=== PATIENT | female | born 1960 | race Caucasian/White ===

== ENCOUNTER 2023-03-09 13:25 | Outpatient (OUT) | payer BC, SELFPAY ==
--- NOTE | 2023-03-09 13:32 | XR_ITS ---
[address] [address] Patient Name: OANH TIM MRN: [id number] date: 1960 Sex: F Assigned Patient Location: [facility] Current Patient Location: [facility] Accession/Order Number: [id number] Exam Date: 03/09/2023 13:39 Report Date: 03/09/2023 13:59 At the request of: SHAIKH DORI Procedure: XR shoulder RT min 2V EXAM: XR shoulder RT min 2V HISTORY: Right Shoulder Pain M25.511 COMPARISON: None. TECHNIQUE: 3 views FINDINGS: There is no acute fracture or dislocation. There are mild degenerative changes of the acromioclavicular joint. The soft tissues are unremarkable. IMPRESSION: Degenerative changes as above. Electronically authenticated by: YOSHI REYNAGA Date: 03/09/2023 13:59
== END 2023-03-09 13:26 ==
LOC: RAD 13:26
PROVIDERS: PCP Internal Medicine; Visit Provider Internal Medicine
DX: M25.511 Pain in right shoulder (principal)
CPT/HCPCS: 73030

== ENCOUNTER 2023-12-04 12:31 | Outpatient (OUT) | payer BC, SELFPAY ==
[2023-12-04 12:48] LABS: Basophils Absolute Auto 0.1 10^3/uL (0.0-0.1); Basophils Percent Auto 1.6 % (0.2-2.0); Eosinophils Absolute Auto 0.3 10^3/uL (0.0-0.7); Eosinophils Percent Auto 4.1 % (0.9-7.0); Hematocrit 38.7 % (36.0-48.0); Hemoglobin 12.4 g/dL (12.0-16.0); Immature Granulocytes Abs Auto 0.01 10^3/uL (0.00-0.03); Immature Granulocytes Pct Auto 0.1 % (0.0-0.5); Lymphocytes Absolute Auto 2.8 10^3/uL (1.2-3.8); Mean Corpuscular Hemoglobin 31.9 pg (26.7-34.0); Mean Corpuscular Volume 99.5 fL (81.0-99.0); Mean Platelet Volume 9.6 fL (9.5-13.5); Monocytes Absolute Auto 0.8 10^3/uL (0.3-0.8); Monocytes Percent Auto 11.2 % (1.7-12.0); Neutrophils Absolute Auto 3.1 10^3/uL (1.4-6.5); Platelet Count 309 10^3/uL (150-450); Red Blood Count 3.89 10^6/uL (4.20-5.40); Red Cell Distribution Width 12.8 % (11.0-15.0); White Blood Count 7.1 10^3/uL (4.0-11.0)
[2023-12-04 13:15] LABS: Alanine Aminotransferase 16 U/L (14-59); Albumin Level 3.6 g/dL (3.4-5.0); Alkaline Phosphatase 71 U/L (46-116); Anion Gap 12.1; Aspartate Amino Transferase 14 U/L (15-37); BUN Creatinine Ratio 18.5; Bilirubin Total 0.3 mg/dL (0.2-1.0); Carbon Dioxide 29.1 mmol/L (21.0-32.0); Chloride 101 mmol/L (98-107); Estimated GFR (African America >60 (>=60); Estimated GFR (Non-African Ame >60 (>=60); Globulin 3.7 g/dL; Glucose 88 mg/dL (74-106); Potassium 4.2 mmol/L (3.5-5.1); Sodium 138 mmol/L (136-145); Total Protein 7.3 g/dL (6.4-8.2)
== END 2023-12-04 12:32 | disposition home or self-care (01) ==
LOC: LAB 12:32
PROVIDERS: PCP Internal Medicine; Visit Provider Internal Medicine
DX: I10 Essential (primary) hypertension (principal)
CPT/HCPCS: 36415; 80053; 85025

== ENCOUNTER 2023-12-14 16:24 | Outpatient (OUT) | payer BC, SELFPAY ==
--- NOTE | 2023-12-14 16:26 | MM_ITS ---
Patient Name: OANH TIM MR#: [id number] : 1960 Exam Date: 12/14/2023 Ordering Doctor: Shaikh Robyn Pichardo . RADIOLOGY REPORT PROCEDURE: MM TOMOSYNTHESIS SCREENING BI COMPARISON: MG MAMM SCREEN 3D [place] CAD, 11/22/2021. INDICATIONS: screening Calculator Name NCI Breast Cancer Risk Assessment Tool 5 Year Breast Cancer Risk 1.90% Lifetime Breast Cancer Risk 8.10% Personal Breast Cancer No Personal Ovarian Cancer No Treatments None Family Cancers Grandfather-maternal with stomach cancer at age 75. LOCATION: [facility] BREAST COMPOSITION: Extremely dense, which lowers the sensitivity of mammography. FINDINGS: DIAGNOSTIC CATEGORY 1--NEGATIVE. RIGHT BREAST: No significant suspicious finding. No significant change has occurred. LEFT BREAST: No significant suspicious finding. No significant change has occurred. RECOMMENDATIONS: ROUTINE MAMMOGRAM AND CLINICAL EVALUATION IN 12 MONTHS. PLEASE NOTE: A NORMAL MAMMOGRAM DOES NOT EXCLUDE THE POSSIBILITY OF BREAST CANCER. A CLINICALLY SUSPICIOUS PALPABLE LUMP SHOULD BE BIOPSIED. Dictated by: Donald Jessica M.D. on 12/15/2023 at 15:00 Approved by: Donald Jessica M.D. on 12/15/2023 at 15:11
== END 2023-12-14 16:25 | disposition home or self-care (01) ==
LOC: MAMMO 16:24
PROVIDERS: PCP Internal Medicine; Visit Provider Internal Medicine
DX: Z12.31 Encounter for screening mammogram for malignant neoplasm of breast (principal); Z80.0 Family history of malignant neoplasm of digestive organs
CPT/HCPCS: 77063; 77067

== ENCOUNTER 2024-01-10 13:12 | Outpatient (OUT) | payer BC, SELFPAY | END 2024-01-10 13:13 | disposition home or self-care (01) | LOC: PST 13:13 | PROVIDERS: PCP Internal Medicine; Visit Provider Surgery | DX: Z01.818 Encounter for other preprocedural examination (principal) ==

== ENCOUNTER 2024-01-16 10:15 | Day surgery (SDC) | payer BC, SELFPAY ==
--- OUTSIDE RECORDS SUMMARY | 2024-01-15 18:02 | XMS_ITS | CCD ---
Author Organization [facility] Care Team Providers Care Telegraph Dispatcher Name Role Phone STEPNUPUR MAICOL C Admitting Unavailable STEPANIC, MAICOL C Attending Unavailable ELMO BURTON Primary Care Unavailable STEPANIC, MAICOL C Admitting Unavailable STEPANIC, MAICOL C Attending Unavailable ELMO BURTNO Primary Care Unavailable Kodi Mccoy Attending Unavailable STEPANIC, MAICOL C Referring Unavailable ELMO BURTON Primary Care Unavailable STEPANIC, MAICOL C Admitting Unavailable STEPANIC, MAICOL C Attending Unavailable ELMO BURTON Primary Care Unavailable FAWWAD, MADRIGAL H Admitting Unavailable FAWWAD, MADRIGAL H Primary Care Unavailable FAWWAD, MADRIGAL H Attending Unavailable FAWWAD, MADRIGAL H Referring Unavailable FAWWAD, MADRIGAL H Admitting Unavailable FAWWAD, MADRIGAL H Primary Care Unavailable FAWWAD, MADRIGAL H Consulting Unavailable FAWWAD, MADRIGAL H Attending Unavailable FAWWAD, MADRIGAL H Admitting Unavailable FAWWAD, MADRIGAL H Primary Care Unavailable FAWWAD, MADRIGAL H Consulting Unavailable FAWWAD, MADRIGAL H Attending Unavailable FAWWAD, MADRIGAL H Admitting Unavailable FAWWAD, MADRIGAL H Primary Care Unavailable FAWWAD, MADRIGAL H Consulting Unavailable FAWWAD, MADRIGAL H Attending Unavailable FAWWAD, MADRIGAL H Admitting Unavailable FAWWAD, MADRIGAL H Primary Care Unavailable DR DONALD JESSICA Consulting Unavailable FAWWAD, MADRIGAL H Attending Unavailable FAWWAD, MADRIGAL H Consulting Unavailable FAWWAD, MADRIGAL Attending Unavailable SHEILA CASTELLANO Attending Unavailable FAWWAD, MADRIGAL Referring Unavailable Problems Active Problems Problem Classification Problem Date Documented Da te Episodic/Chronic Essential hypertension (4 sources) Essential (primary) hypertension; Translations: [ESSENTIAL PRIMARY HYPERTENSION] Onset: 10-20-2022 Chronic Fluid and electrolyte disorders (4 sources) Hypo-osmolality and hyponatremia; Translations: [HYPO-OSMOLALITY AND HYPONATREMIA] Onset: 10-24-2022 Episodic Osteoarthritis (2 sources) Unilateral primary osteoarthritis, right hip; Translations: [Unilateral primary osteoarthritis, right hip] Onset: 01-08-2019 Chronic Unclassified (3 sources) CONTACT W/AND (SUSP) EXPOS COVID-19; Translations: [CONTACT W/AND (SUSP) EXPOS COVID-19] Onset: 11-18-2022 Past or Other Problems Problem Classification Problem Date Documented Da te Episodic/Chronic Other screening for suspected conditions (not mental disorders or infectious disease) (4 sources) Encounter for screening mammogram for malignant neoplasm of breast; Translations: [ENC SCR MAMMO MALIG NEOPLASM BREAST] Onset: 11-22-2021 Episodic Residual codes; unclassified (1 source) Family history of malignant neoplasm of digestive organs; Translations: [FAM HX MALIG NEOPLASM DIGESTIV ORGN] Onset: 11-24-2021 Episodic Unclassified (1 source) CONTACT W/AND (SUSP) EXPOS COVID-19; Translations: [CONTACT W/AND (SUSP) EXPOS COVID-19] Onset: 11-14-2022 Results Test Name Value Interpretation Reference Range Facility Covid-19 PCR (CVDTB)on 11-02 SARS-CoV-2 (COVID-19) RNA ADITYA+probe Ql (Unsp spec) Not detected Normal NOT DETECTED [facility] Comment on above: Result Comment: When diagnostic testing is negative, the possibility of a false negative should be considered in the context of a patient's recent exposures and the presence of clinical signs and symptoms consistent with SARS-CoV-2. This test is not yet approved or cleared by the [place] FDA. When there are no FDA-approved or cleared tests available, and other criteria are met, FDA can make tests available under an emergency access mechanism called an Emergency Use Authorization (EUA). The EUA for this test is supported by the [place] of Health and Human Service's declaration that circumstances exist to justify the emergency use of in vitro diagnostics for the detection and/or diagnosis of the virus that causes COVID-19. This EUA will remain in effect for the duration of the COVID-19 declaration justifying emergency of IVDs, unless it is terminated or revoked by the FDA (after which the test may no longer be used). Previously reported as: [id number] On 11/14/2022 17:33 By RC01 Performed By: #### [facility] #### [facility] [address] [address] [address] Pito Johnson Result Comment: This test is not yet approved or cleared by the [place] FDA. When there are no FDA-approved or cleared tests available, and other criteria are met, FDA can make tests available under an emergency access mechanism called an Emergency Use Authorization (EUA). The EUA for this test is supported by the [place] of Health and Human Service's (HHS's) declaration that circumstances exist to justify the emergency use of in vitro diagnostics for the detection and/or diagnosis of the virus that causes COVID-19. This EUA will remain in effect (meaning this test can be used) for the duration of the COVID-19 declaration justifying emergency of IVDs, unless it is terminated or revoked by FDA (after which the test may no longer be used). When diagnostic testing is negative, the possibility of a false negative should be considered in the context of a patient's recent exposures and the presence of clinical signs and symptoms consistent with SARS-CoV-2. INFLUENZA A AND B [facility] 11-14 [facility] Normal [facility] Comment on above: Result Comment: Nega tive for Flu A protein angiten. Infection due to Flu A cannot be ruled out. Flu A angiten in the sample may be below the detection limit of the test. Performed By: #### I NFLUAB #### [facility] [address] [place] [address] Dr. [facility] Normal [facility] Comment on above: Result Comment: Nega tive for Flu B protein antigen. Infection due to Flu B cannot be ruled out. Flu B antigen in the sample may be below the detection limit of the test. Performed By: #### I NFLUAB #### [facility] [address] [address] [address] Pito Johnson INFLUENZA A AG Negative Normal NEGATIVE SEE COMMENT [facility] Comment on above: Performed By: #### I NFLUAB #### [facility] [address] [address] [address] Pito Johnson INFLUENZA B AG Negative Normal NEGATIVE SEE COMMENT [facility] Comment on above: Performed By: #### I NFLUAB #### [facility] [address] [address] [address] Pito Johnson PROF CHEM 8 (BAS METB)on Anion gap [Moles/Vol] 10.2 mmol/L Normal [facility] Comment on above: Performed By: #### B MP #### [facility] [address] [address] [address] Pito Johnson Calcium [Mass/Vol] 9.2 mg/dL Normal 8.5-10.1 [facility] Comment on above: Performed By: #### B MP #### [facility] [address] [address] [address] Pito Johnson Chloride [Moles/Vol] 96 mmol/L Critically low 98-107 [facility] Comment on above: Performed By: #### B MP #### [facility] [address] [address] [address] Pito Johnson CO2 [Moles/Vol] 31.1 mmol/L Normal 21.0-32.0 [facility] Comment on above: Performed By: #### B MP #### [facility] [address] [address] [address] Pito Johnson Creatinine [Mass/Vol] 0.65 mg/dL Normal 0.55-1.02 [facility] Comment on above: Performed By: #### B MP #### [facility] [address] [address] [address] Pito Johnson EGFR-AF PARAGUAYAN >60 Normal >=60 [facility] Comment on above: Performed By: #### B MP #### [facility] [address] [address] [address] Pito Johnson EGFR-NON AF PARAGUAYAN >60 Normal >=60 [facility] Comment on above: Performed By: #### B MP #### [facility] [address] [address] [address] Pito Johnson Glucose [Mass/Vol] 102 mg/dL Normal 74-106 [facility] Comment on above: Performed By: #### B MP #### [facility] [address] [address] [address] Pito Johnson Potassium [Moles/Vol] 4.3 mmol/L Normal 3.5-5.1 [facility] Comment on above: Performed By: #### B MP #### [facility] [address] [place] [address] Dr. Pito Johnson Sodium [Moles/Vol] 133 mmol/L Critically low 136-145 [facility] Comment on above: Performed By: #### B MP #### [facility] [address] [place] [address] Dr. Pito Johnson Urea nitrogen [Mass/Vol] 12.0 mg/dL Normal 7.0-18.0 [facility] Comment on above: Performed By: #### B MP #### [facility] [address] [place] [address] Dr. Pito Johnson Urea nitrogen/Creatinine [Mass ratio] 18.5 mg/mg Normal [facility] Comment on above: Performed By: #### B MP #### [facility] [address] [place] [address] Dr. Pito Johnson CBC AUTO DIFFon 10-20-2022 BASO # 0.1 103/ul Normal 0.0-0.1 [facility] Comment on above: Performed By: #### C BC #### [facility] [address] [place] [address] Dr. Pito Johnson Basophils/100 WBC (Bld) 0.8 % Normal 0.2-2.0 [facility] Comment on above: Performed By: #### C BC #### [facility] [address] [place] [address] Dr. Pito Johnson EO # 0.3 103/ul Normal 0.0-0.7 [facility] Comment on above: Performed By: #### C BC #### [facility] [address] [place] [address] Dr. Pito Johnson Eosinophils/100 WBC (Bld) 3.4 % Normal 0.9-7.0 [facility] Comment on above: Performed By: #### C BC #### [facility] [address] [place] [address] Dr. Pito Johnson Erythrocyte distribution width (RBC) [Ratio] 12.0 % Normal 11.0-15.0 [facility] Comment on above: Performed By: #### C BC #### [facility] [address] [place] [address] Dr. Pito Johnson Hematocrit (Bld) [Volume fraction] 39.5 % Normal 36.0-48.0 [facility] Comment on above: Performed By: #### C BC #### [facility] [address] [place] [address] Dr. Pito Johnson Hemoglobin (Bld) [Mass/Vol] 14.0 g/dL Normal 12.0-16.0 [facility] Comment on above: Performed By: #### C BC #### [facility] [address] [place] [address] Dr. Pito Johnson IG # 0.03 10e3/ul Normal 0.00-0.03 [facility] Comment on above: Performed By: #### C BC #### [facility] [address] [place] [address] Dr. Pito Johnson IG % 0.3 % Normal 0.0-0.5 [facility] Comment on above: Performed By: #### C BC #### [facility] [address] [place] [address] Dr. Pito Johnson LYMPH # 2.2 103/ul Normal 1.2-3.8 [facility] Comment on above: Performed By: #### C BC #### [facility] [address] [place] [address] Dr. Pito Johnson Lymphocytes/100 WBC (Bld) 24.9 % Normal 20.5-60.0 [facility] Comment on above: Performed By: #### C BC #### [facility] [address] [place] [address] Dr. Pito Johnson MANUAL DIFF REQ NO Normal [facility] Comment on above: Performed By: #### C BC #### [facility] [address] [place] [address] Dr. Pito Johnson MCH (RBC) [Entitic mass] 34.1 pg Critically high 26.7-34.0 [facility] Comment on above: Performed By: #### C BC #### [facility] [address] [place] [address] Dr. Pito Johnson MCHC (RBC) [Mass/Vol] 35.4 g/dL Critically high 29.9-35.2 [facility] Comment on above: Performed By: #### C BC #### [facility] [address] [place] [address] Dr. Pito Johnson MCV (RBC) [Entitic vol] 96.1 fL Normal 81.0-99.0 [facility] Comment on above: Performed By: #### C BC #### [facility] [address] [place] [address] Dr. Pito Johnson MONO # 0.9 103/ul Critically high 0.3-0.8 [facility] Comment on above: Performed By: #### C BC #### [facility] [address] [place] [address] Dr. Pito Johnson Monocytes/100 WBC (Bld) 10.0 % Normal 1.7-12.0 [facility] Comment on above: Performed By: #### C BC #### [facility] [address] [place] [address] Dr. Pito Johnson NEUT # 5.4 103/ul Normal 1.4-6.5 [facility] Comment on above: Performed By: #### C BC #### [facility] [address] [place] [address] Dr. Pito Johnson Neutrophils/100 WBC (Bld) 60.6 % Normal 43.0-75.0 [facility] Comment on above: Performed By: #### C BC #### [facility] [address] [address] [address] Pito Johnson Platelet mean volume (Bld) [Entitic vol] 8.7 fL Critically low 9.5-13.5 [facility] Comment on above: Performed By: #### C BC #### [facility] [address] [address] [address] Pito Johnson PLT 376 103/ul Normal 150-450 [facility] Comment on above: Performed By: #### C BC #### [facility] [address] [address] [address] Pito Johnson RBC 4.11 106/ul Critically low 4.20-5.40 [facility] Comment on above: Performed By: #### C BC #### [facility] [address] [address] [address] Pito Johnson WBC 8.9 103/ul Normal 4.0-11.0 [facility] Comment on above: Performed By: #### C BC #### [facility] [address] [address] [address] Pito Johnson PROF CHEM 8 (BAS METB)on Anion gap [Moles/Vol] 12.0 mmol/L Normal [facility] Comment on above: Performed By: #### B MP #### [facility] [address] [place] [address] Dr. Pito Johnson Calcium [Mass/Vol] 9.6 mg/dL Normal 8.5-10.1 [facility] Comment on above: Performed By: #### B MP #### [facility] [address] [place] [address] Dr. Pito Johnson Chloride [Moles/Vol] 90 mmol/L Critically low 98-107 [facility] Comment on above: Performed By: #### B MP #### [facility] [address] [place] [address] Dr. Pito Johnson CO2 [Moles/Vol] 30.1 mmol/L Normal 21.0-32.0 [facility] Comment on above: Performed By: #### B MP #### [facility] [address] [place], [place] [id number] Dr. Pito Johnson Creatinine [Mass/Vol] 0.69 mg/dL Normal 0.55-1.02 [facility] Comment on above: Performed By: #### B MP #### [facility] [address] [place] [address] Dr. Pito Johnson EGFR-AF PARAGUAYAN >60 Normal >=60 [facility] Comment on above: Performed By: #### B MP #### [facility] [address] [place] [address] Dr. Pito Johnson EGFR-NON AF PARAGUAYAN >60 Normal >=60 [facility] Comment on above: Performed By: #### B MP #### [facility] [address] [place] [address] Dr. Pito Johnson Glucose [Mass/Vol] 105 mg/dL Normal 74-106 [facility] Comment on above: Performed By: #### B MP #### [facility] [address] [place] [address] Dr. Pito Johnson Potassium [Moles/Vol] 4.1 mmol/L Normal 3.5-5.1 [facility] Comment on above: Performed By: #### B MP #### [facility] [address] [place] [address] Dr. Pito Johnson Sodium [Moles/Vol] 128 mmol/L Critically low 136-145 [facility] Comment on above: Performed By: #### B MP #### [facility] [address] [place] [address] Dr. Pito Johnson Urea nitrogen [Mass/Vol] 19.0 mg/dL Critically high 7.0-18.0 [facility] Comment on above: Performed By: #### B MP #### [facility] [address] [place] [address] Dr. Pito Johnson Urea nitrogen/Creatinine [Mass ratio] 27.5 mg/mg Normal [facility] Comment on above: Performed By: #### B MP #### [facility] [address] [place] [address] Dr. Pito Johnson MG MAMM SCREEN 3D MINERVA CADon 11-22-2021 MG MAMM SCREEN 3D MINERVA CAD Patient: OANH TIM Exam Date: 11/22/2021 : 1960 Gender:F Ordering : SHAIKH Robyn MEADOWS . Admission #: [id number] Family : Order #: [id number] CLICK HERE TO VIEW EXAM RADIOLOGY REPORT PROCEDURE: MAMMOGRAM SCREENING 3D BILATERAL CAD COMPARISON: None. INDICATIONS: Screening mammography Calculator Name NCI Breast Cancer Risk Assessment Tool 5 Year Breast Cancer Risk 1.80% Lifetime Breast Cancer Risk 8.60% Personal Breast Cancer No Personal Ovarian Cancer No Treatments None Family Cancers Grandfather-maternal with stomach cancer at age 75. LOCATION: [facility] BREAST COMPOSITION: Extremely dense, which lowers the sensitivity of mammography. FINDINGS: DIAGNOSTIC CATEGORY 1--NEGATIVE. RIGHT BREAST: No significant suspicious finding. LEFT BREAST: No significant suspicious finding. RECOMMENDATIONS: ROUTINE MAMMOGRAM AND CLINICAL EVALUATION IN 12 MONTHS. PLEASE NOTE: A NORMAL MAMMOGRAM DOES NOT EXCLUDE THE POSSIBILITY OF BREAST CANCER. A CLINICALLY SUSPICIOUS PALPABLE LUMP SHOULD BE BIOPSIED. Dictated by: Donald Jessica M.D. on 11/23/2021 at 11:47 Approved by: Donald Jessica M.D. on 11/23/2021 at 11:49 Normal [facility] Provider Orderson 05-21-2018 Protein mass conc [id number]#1.00 [facility] Nurse[facility]-[address] Lennon's office notified of Na 123 on 05/04/18 [Electronically Signed on: 05/14/2018 14:12 EDT] Krupa Walker RN [Verified on: 05/14/2018 14:12 EDT] Krupa Walker RN [facility] Lab - AP Resultson 08-10-201 8 Lab - AP Results [id number]#1.00 [facility] Pathology Sendout Teston Pathology Send Out. See Report [facility] Comment on above: Performed By: #### 2 [id number] ####[facility] (DEFAULT)[address] [place] [address] Coding Summaryon 05-10-2018 Coding Summary CODING DATE: 05/10/2018 FINAL [facility] STATUS: Home PAYOR: Bal Youngblood Grouper: 470 MS-DRG MAJOR HIP AND KNEE JOINT REPLACEMENT OR REATTACHMENT OF LOWER EXTREMITY W/O PRISON Low Trim 0 High Trim 999 ADMIT DX: M16.11 Unilateral primary osteoarthritis, right hip REASON FOR VISIT DX: FINAL DX: PRINCIPAL: M16.11 Y Unilateral primary osteoarthritis, right hip SECONDARY: I10 Y Essential (primary) hypertension PROCEDURES DOCTOR NAME DATE [id number] Replacement of Right Hip Joint MAICOL BELLO 05/04/2018 with Metal on Polyethylene Synthetic Substitute, Uncemented, Open Approach NOTE: The code number assigned matches the documented diagnosis and / or procedure in the patient's chart. However, the narrative phrase printed from the coding software may appear abbreviated, or result in slightly different terminology. Coded By: Yenifer Little Date Saved: 05/10/2018 12:39 pm [facility] Advance Directive Documentso n 05-07-2018 Advance Directive Documents [id number]#1.00 [facility] Consent Formson 05-07-2018 Consent Forms [id number]#1.00 [facility] History and Physicalon 05-07 History and Physical [id number]#1.00 [facility] Outside Recordson 05-07-2018 Outside Records [id number]#1.00 [facility] Outside Records [id number]#1.00 [facility] Telemetry Stripson 8 Telemetry Strips [id number]#1.00 [facility] Anesthesia Noteon 05-04-2018 Anesthesia Note Patient: OANH TIM Age: 57 years Sex: FEMALE : 60 Associated Diagnoses: None Author: Porfirio Hodge MD Postoperative Information Anesthetic utilized: Regional: Spinal. Assessment Anesthetic outcome No anesthetic complications noted. Plan Transfer/ Discharge: Patient can be discharged from PACU when criteria met. Condition good. [Electronically Signed on: 05/04/2018 13:53 EDT] Porfirio Hodge MD [Verified on: 05/04/2018 13:53 EDT] Porfirio Hodge MD [facility] Anesthesia Note Patient: OANH TIM Age: 57 years Sex: FEMALE : 60 Associated Diagnoses: None Author: Porfirio Hodge MD Preoperative Information Anesthesia history: Patient history: No prior anesthesia problems. Family history: No malignant hyperthermia. Review of Systems Constitutional: Negative. Cardiovascular: No Chest Pain. No SOB. Health Status Allergies: Allergic Reactions (All) No known allergies Current medications: Home Medications (6) Active Celebrate Multivitamin oral capsule 1 tab(s), PO, Daily cloNIDine 0.3 mg oral tablet 0.3 mg = 1 tab(s), PO, BID hydrochlorothiazide-li sinopril 12.5 mg-20 mg oral tablet 2 tab(s), PO, Daily metoprolol succinate 25 mg oral tablet, extended release 25 mg = 1 tab(s), PO, Daily Poly Iron (as elemental iron) 150 mg oral capsule 150 mg = 1 cap(s), PO, Daily Sodium Chloride 1 g oral tablet 1 gm = 1 tab(s), PO, BID Problem list (past medical history): All Problems Arthritis / SNOMED CT 0159977 / Confirmed Hypertension / SNOMED CT 7428573905 / Confirmed Histories Family History: Pancreatic cancer Sister Heart attack Father CVA (cerebral vascular accident).... Father Diabetes Father Procedure history: Dilation and curettage ([id number]) in 1979 at 19 Years. Social History Alcohol Assessment Use: Current. Beer, Daily, 8 drinks/episode average. Tobacco Assessment 10 or more cigarettes (1/2 pack or more)/day in last 30 days Tobacco Use:. Substance Abuse Assessment Substance use: Never. . Social & Psychosocial Habits Alcohol 02/27/2018 Alcohol Use: Current Type: Beer Frequency: Daily Average drinks per episode in last year: 8 Substance Abuse 02/27/2018 Substance use: Never Tobacco 02/27/2018 Smoking tobacco use: 10 or more cigarettes (1/ . Pt is Witness; Desires no blood products. Mother present as well and confirms. . Physical Examination Airway: Mallampati classification: II (soft palate, fauces, uvula visible). Temporomandibular joint mobility: Good. Mouth: Teeth ( Several missing; none loose per patient. Overall, poor dentition but pt states she had 'dental clearance' ). Respiratory: Lungs are clear to auscultation. Cardiovascular: Regular rhythm. Neurologic: Alert, Oriented. Review / Management Laboratory Results Plan [place] [employer] Anesthesiologists#(ASA ) physical status classification: Class II. Anesthetic Preoperative Plan Anesthesia: Regional Spinal. Anesthetic plan, risks, benefits, and alternatives discussed with the patient and/or family. Patient verbalized understanding. Informed consent was given. [Electronically Signed on: 05/04/2018 07:54 EDT] Porfirio Hodge MD [Verified on: 05/04/2018 07:54 EDT] Porfirio Hodge MD Normal [facility] BMP Standardon 05-04-2018 eGFR AA >60 [facility] Comment on above: Result Comment: [employer] Kidney disease could be indicated at eGFRs of less than 60 ml/min/1.73m2. Kidney Failure is indicated at less than 15 ml/min/1.73m2 Performed By: #### 6 [id number], [id number], [id number] #### [facility] (DEFAULT) [address] [place] [address] eGFR Non AA >60 [facility] Comment on above: Performed By: #### 6 [id number], [id number], [id number] #### [facility] (DEFAULT) [address] [place] [address] Anion gap molar conc 15.0 mmol/L Normal 5.0-19.0 [facility] Comment on above: Performed By: #### 6 [id number], [id number] #### [facility] (DEFAULT) [address] [place] [address]449 Calcium mass conc 9.5 mg/dL Normal 8.9-10.3 [facility] Comment on above: Performed By: #### 6 [id number], [id number] #### [facility] (DEFAULT) [address] [place] [address] Chloride molar conc 88 mmol/L Low 101-111 [facility] Comment on above: Performed By: #### 6 [id number], [id number], [id number] #### [facility] (DEFAULT) [address] [place] [address] CO2 molar conc 25 mmol/L Normal 21-32 [facility] Comment on above: Performed By: #### 6 [id number], [id number] #### [facility] (DEFAULT) [address] [place] [address] [id number] Creatinine mass conc 0.50 mg/dL Low 0.60-1.30 [facility] Comment on above: Performed By: #### 6 [id number] #### [facility] (DEFAULT) [address] [place] [address] [id number] Glucose mass conc 111.0 mg/dL Normal 74.0-118.0 [facility] Comment on above: Performed By: #### 6 [id number], [id number] #### [facility] (DEFAULT) [address] [place] [address] [id number] Osmolality 248 mOsm/L [facility] Comment on above: Performed By: #### 6 [id number], [id number] #### [facility] (DEFAULT) [address] [place] [address] 15285 Potassium molar conc 4.9 mmol/L Normal 3.6-5.1 [facility] Comment on above: Performed By: #### 6 [id number], [id number] #### [facility] (DEFAULT) [address] [place] [address] [id number] Sodium molar conc 123.0 mmol/L Low 136.0-144.0 [facility] Comment on above: Performed By: #### 6 [id number], [id number], [id number] #### [facility] (DEFAULT) [address] [place] [address] Urea nitrogen mass conc 11 mg/dL Normal 8-26 [facility] Comment on above: Performed By: #### 6 [id number], [id number] #### [facility] (DEFAULT) [address] [place] [address] Urea nitrogen/Creatinine mass ratio 22.0 mg/mg High 4.6-16.2 [facility] Comment on above: Performed By: #### 6 [id number], [id number], [id number] #### [facility] (DEFAULT) [address] [place] [address] Education Noteon 05-04-2018 Education Note Education Materials POST OPERATIVE TOTAL KNEE/HIP DISCHARGE INTRUCTIONS SURGEONS WRITTEN INSTRUCTIONS: Walk with walker; bear weight to tolerance on operative extremity Elevate extremity 1 hour 3 times/day to control pain and swelling and apply cyrocuff Range of motion to ankle 10 times/hour Range of motion to knee hourly Change dressing daily. Reapply silver dressing for next four days then discontinue Armand hose (compression stockings) for 6 weeks Physical therapy as prescribed May shower, no tub bath. Do not rub/scrub incision. Wash gently Take Aspirin 325mg 1 time daily to prevent blood clots, coated or uncoated per patient preference. WHAT YOU SHOULD KNOW AFTER YOUR OPERATION: If you need pain pills, start before the pain becomes intense. Pain pills are frequently less upsetting to your stomach if you take them with food such as crackers or bread. If you have excessive or persistent pain, swelling, bleeding, nausea, vomiting or any other problems, you should first call your surgeon for advice. If you are unable to contact your surgeon, seek help from the emergency room. FOR THE PREVENTION OF DVT AFTER LOWER EXTREMITY SURGERY What is a DVT? There is always the risk of DVT after lower extremity surgery. DVT, or deep vein thrombosis, is a blood blot in a major vein that may partially or completely block the flow of blood. The clot occurs in the legs or pelvis, in areas where blood flow is slow, or in an injured blood vessel. DVT can be life-threatening should pieces of the clot break away and travel to the lungs. This is called pulmonary embolism What are the symptoms of DVT? The area affected by the blood clot may become swollen and painful, and possibly turn red as the normal flow of blood is blocked. You may also develop edema, which is the build up of fluid in the skin tissues surrounding the clot. If the clot is somewhere other than your leg, there may be no physical signs of DVT. If the clot breaks away and travels to your lungs, you may experience shortness of breath and chest pain. If this occurs you should call your doctor immediately or go to the emergency room. How can I prevent DVT? You should keep active. Moving the ankle and foot and bending the knee as tolerated when you are in bed and walking as tolerated. Take medication, especially the Aspirin, as prescribed by your doctor. What should I do if I think I have a DVT? You should call your doctor or go to the emergency room any time you have a sudden and unusual shortness of breath that is not related to exercise, exertion or anxiety. If you have swelling with redness and pain in your leg, you should call your doctor immediately. If there is concern then a test called ?Venous Doppler? can be done to rule of a DVT. Hip dislocation precautions: #1 do not flex operative hip past 90? until cleared by physician in office. #2 no crossing legs #3 try not to externally rotate operative foot (keep foot pointed straight on operative leg) #4 no climbing ladders #5 no high impact or explosive contractures to operative hip [facility] History and Physicalon 05-04 History and Physical [id number] [facility] Inpatient Patient Summaryon 05-04-2018 Inpatient Patient Summary [facility] [address] [place] [address] Patient Discharge Instructions Name: OANH TIM : 60 Patient [address]: [address] [place] [id number] Primary Care Provider: Name: ELMO BURTON After you are discharged if you find you have any questions, please, call [phone] ext [phone] to speak to a nurse. Discharge Diagnosis: If you received any narcotics, sedation, or any other medication that causes drowsiness for the next 24 hours, unless otherwise directed: ? Do not drive a car. ? Do not operate machinery such as power tools, lawn mowers, drills, sewing machines, or stoves ? Avoid alcoholic beverages and drugs for allergies, nerves, or sleep ? Do not make important personal or business decisions or sign any legal documents [facility] would like to thank you for allowing us to assist you with your healthcare needs. The following includes patient education materials and information regarding your injury/illness. OANH TIM has been given the following list of follow-up instructions, prescriptions, and patient education materials: Follow-up Instructions With: Address: When: ELMO BURTON [address] [place] [address] [place] [address] Business (1) With: Address: When: Mathieu Mccarthy [address] [place] [address], [facility] [address] [address] Business (1) In 2 weeks 05/18/18 Comments: Start daily dressing changes on MondayMay 06 Medications During the course of your visit, your medication list was updated with the most current information. The details of those changes are reflected below: New Medications Printed Prescriptions acetaminophen-oxycodon e (Percocet 5/325 oral tablet) 2 tab(s) Oral Every 6 hours as needed for pain for 7 Days. Refills: 0. Medications to Continue That Have Not Changed Other Medications cloNIDine (cloNIDine 0.3 mg oral tablet) 1 tab(s) Oral 2 times a day. hydrochlorothiazide-li sinopril (hydrochlorothiazide-l isinopril 12.5 mg-20 mg oral tablet) 2 tab(s) Oral every day. iron polysaccharide (Poly Iron (as elemental iron) 150 mg oral capsule) 1 cap Oral every day. metoprolol (metoprolol succinate 25 mg oral tablet, extended release) 1 tab(s) Oral every day. multivitamin with minerals (Celebrate Multivitamin oral capsule) 1 tab(s) Oral every day. sodium chloride (Sodium Chloride 1 g oral tablet) 1 tab(s) Oral 2 times a day. It is important to always keep an active list of medications available so that you can share with other providers and manage your medications appropriately. As an additional courtesy, we are also providing you with your final active medications list that you can keep with you. acetaminophen-oxycodon e (Percocet 5/325 oral tablet) 2 tab(s) Oral Every 6 hours as needed for pain for 7 Days. Refills: 0. cloNIDine (cloNIDine 0.3 mg oral tablet) 1 tab(s) Oral 2 times a day. hydrochlorothiazide-li sinopril (hydrochlorothiazide-l isinopril 12.5 mg-20 mg oral tablet) 2 tab(s) Oral every day. iron polysaccharide (Poly Iron (as elemental iron) 150 mg oral capsule) 1 cap Oral every day. metoprolol (metoprolol succinate 25 mg oral tablet, extended release) 1 tab(s) Oral every day. multivitamin with minerals (Celebrate Multivitamin oral capsule) 1 tab(s) Oral every day. sodium chloride (Sodium Chloride 1 g oral tablet) 1 tab(s) Oral 2 times a day. Take only the medications listed above. Contact your doctor prior to taking any medications not on this list. Medication leaflets, if any, will display below Diet & Activity Patient Activity Level: Patient Diet: Patient Activity Restrictions: Patient education materials, if any, will display below POST OPERATIVE TOTAL KNEE/HIP DISCHARGE INTRUCTIONS SURGEONS WRITTEN INSTRUCTIONS: Walk with walker; bear weight to tolerance on operative extremity Elevate extremity 1 hour 3 times/day to control pain and swelling and apply cyrocuff Range of motion to ankle 10 times/hour Range of motion to knee hourly Change dressing daily. Reapply silver dressing for next four days then discontinue Armand hose (compression stockings) for 6 weeks Physical therapy as prescribed May shower, no tub bath. Do not rub/scrub incision. Wash gently Take Aspirin 325mg 1 time daily to prevent blood clots, coated or uncoated per patient preference. WHAT YOU SHOULD KNOW AFTER YOUR OPERATION: If you need pain pills, start before the pain becomes intense. Pain pills are frequently less upsetting to your stomach if you take them with food such as crackers or bread. If you have excessive or persistent pain, swelling, bleeding, nausea, vomiting or any other problems, you should first call your surgeon for advice. If you are unable to contact your surgeon, seek help from the emergency room. FOR THE PREVENTION OF DVT AFTER LOWER EXTREMITY SURGERY What is a DVT? There is always the risk of DVT after lower extremity surgery. DVT, or deep vein thrombosis, is a blood blot in a major vein that may partially or completely block the flow of blood. The clot occurs in the legs or pelvis, in areas where blood flow is slow, or in an injured blood vessel. DVT can be life-threatening should pieces of the clot break away and travel to the lungs. This is called pulmonary embolism What are the symptoms of DVT? The area affected by the blood clot may become swollen and painful, and possibly turn red as the normal flow of blood is blocked. You may also develop edema, which is the build up of fluid in the skin tissues surrounding the clot. If the clot is somewhere other than your leg, there may be no physical signs of DVT. If the clot breaks away and travels to your lungs, you may experience shortness of breath and chest pain. If this occurs you should call your doctor immediately or go to the emergency room. How can I prevent DVT? You should keep active. Moving the ankle and foot and bending the knee as tolerated when you are in bed and walking as tolerated. Take medication, especially the Aspirin, as prescribed by your doctor. What should I do if I think I have a DVT? You should call your doctor or go to the emergency room any time you have a sudden and unusual shortness of breath that is not related to exercise, exertion or anxiety. If you have swelling with redness and pain in your leg, you should call your doctor immediately. If there is concern then a test called ?Venous Doppler? can be done to rule of a DVT. Hip dislocation precautions: #1 do not flex operative hip past 90? until cleared by physician in office. #2 no crossing legs #3 try not to externally rotate operative foot (keep foot pointed straight on operative leg) #4 no climbing ladders #5 no high impact or explosive contractures to operative hip Viruses or Bacteria What?s got you sick? Antibiotics only treat bacterial infections. Viral illnesses cannot be treated with antibiotics. When an antibiotic is not prescribed, ask your healthcare professional for tips on how to relieve symptoms and feel better. Usual Cause Illness Viruses Bacteria Antibiotic Needed Cold/Runny Nose NO Bronchitis/Chest Cold (in otherwise healthy children and adults) NO Whooping Cough Yes Flu NO Strep Throat Yes Sore Throat (except strep) NO Fluid in the middle ear (otitis media with effusion) NO Urinary Tract Infection Yes Antibiotics Aren?t Always the Answer www.cdc.gov/getsmart GET SMART Know When Antibiotics Work U.S. Department of Health and Human Services Centers for Disease Control and Prevention June 2014 [facility] MAGR Intraoperative Recordon 05-04-2018 MAGR Intraoperative Record MAGR Intra-Op Record Summary Primary Physician: MAICOL BELLO Finalized Date/Time: 05/04/18 11:50:08 Pt. Name: OANH TIM/Sex: 1960 FEMALE Med Rec #: [id number] Physician: MAICOL BELLO Financial #: [id number] Pt. Type: I Room/Bed: [facility] Admit/Disch: 05/04/18 05:50:21 - Institution: Case Times MAGR Entry 1 Patient In Room Time 05/04/18 07:59:00 Out Room Time 05/04/18 11:08:00 Anesthesia Start Time 05/04/18 07:59:00 Stop Time 05/04/18 11:08:00 Surgery Start Time 05/04/18 08:45:00 Stop Time 05/04/18 10:55:00 Last Modified By: Marcela Rachel 05/04/18 11:43:19 Case Attendance MAGR Entry 1 Entry 2 Entry 3 Case Attendee MAICOL BELLO William MD Cartier, Cynthia M Role Performed Surgeon - Primary Anesthesiologist of [employer] Record Time In 05/04/18 07:59:00 05/04/18 07:59:00 05/04/18 07:59:00 Time Out 05/04/18 11:08:00 05/04/18 11:08:00 05/04/18 11:08:00 Procedure Arthroplasty Hip Arthroplasty Hip Arthroplasty Hip Total(Right) Total(Right) Total(Right) Last Modified By: Marcela Rachel Cynthia M Cartier, Cynthia M 05/04/18 11:43:27 05/04/18 11:43:27 05/04/18 11:43:27 Entry 4 Entry 5 Entry 6 Case Attendee Caren Gagnon RN, Lauren M CST Bear, Stacy M ENDOCRINOLOGY TEACHER Role Performed [employer] Insole Reinforcer Scrub Personnel Time In 05/04/18 07:59:00 05/04/18 07:59:00 05/04/18 07:59:00 Time Out 05/04/18 11:08:00 05/04/18 11:08:00 05/04/18 11:08:00 Procedure Arthroplasty Hip Arthroplasty Hip Arthroplasty Hip Total(Right) Total(Right) Total(Right) Last Modified By: Marcela Rachel Cynthia M Cartier, Cynthia M 05/04/18 11:43:27 05/04/18 11:43:27 05/04/18 11:43:27 Entry 7 Case Attendee Marianne Ho CST Role Performed Scrub Personnel Time In 05/04/18 07:59:00 Time Out 05/04/18 11:08:00 Procedure Arthroplasty Hip Total(Right) Last Modified By: Marcela Rachel 05/04/18 11:43:27 General Comments: GURDEEP WILSON REP Surgical Procedures MAGR Pre-Care Text: A.20 Verifies operative procedure, surgical site, and laterality Im.150 Develops individualized plan of care Entry 1 Procedure Arthroplasty Hip Total Primary Procedure Yes Primary Surgeon MAICOL BELLO Right Surgeon Comment RIGHT TOTAL HIP Start 05/04/18 08:45:00 Stop 05/04/18 10:55:00 Anesthesia Type General Surgical Service Orthopedics Wound Class Clean Last Modified By: Marcela Rachel 05/04/18 11:43:34 Post-Care Text: O.730 The patient's care is consistent with the individualized perioperative plan of care General Case Data MAGR Pre-Care Text: A.350.1 Classifies surgical wound Entry 1 Case Information OR MAGR OR 01 Case Level Level 5 Wound Class Clean Specialty Orthopedics ASA Class 2 Diagnosis Preop Diagnosis DJD RIGHT HIP Postop Same As Preop Yes Postop Diagnosis DJD RIGHT HIP Last Modified By: Marcela Rachel 05/04/18 08:52:05 Post-Care Text: O.760 Patient receives consistent and comparable care regardless of the setting Time Out MAGR Entry 1 Time out date/time 05/04/18 08:43:00 All team members Yes have introduced themselves by name and role Surgeon, Yes Surgeon reviews Yes anesthesia, nurse critical or confirm patient, unexpected steps, site, procedure operative duration, anticipated blood loss Anesthesia team Yes Nursing team Yes reviews any reviews sterility patient-specific (including concerns indicator results) and equipment issues/concerns Antibiotic Antibiotic Yes Administration Time 07:55 prophylaxis given within the last 60 minutes Is essential N/A imaging displayed? Last Modified By: Marcela Rachel 05/04/18 11:43:52 Patient Positioning MAGR Pre-Care Text: A.280 Identifies baseline musculoskeletal status Im.40 Positions the patient Im.80 Applies safety devices Entry 1 Procedure Arthroplasty Hip Body Position Lateral Total(Right) Left Arm Position Extended on padded arm Right Arm Position Secured across chest board Left Leg Position Extended Right Leg Position Extended Feet Uncrossed? Yes Press Points Checked Yes Positioning Device Moore Bag, Safety Strap, Outcome Met (O.80) Yes Pillow Last Modified By: Marcela Rachel 05/04/18 08:53:03 Post-Care Text: E.290 Evaluates musculoskeletal status O.80 Patient is free from signs and symptoms of injury related to positioning Skin Prep MAGR Pre-Care Text: A.30 Verifies allergies Im.270 Performs skin preparation Im.270.1 Implements protective measures to prevent skin and tissue injury due to chemical sources Entry 1 Skin Prep Syntegrity Prep Agents (Im.270) Povidone-Iodine Prep By Marcela Rachel, Caren Gagnon RN Prep Area (Im.270) Hip, Leg, Foot Prep Area Details Right Skin Prep Agent Dry Yes Without Pooling Hair Removal Syntegrity Hair Removal Methods No hair removal performed Outcome Met (O.100) Yes Last Modified By: Marcela Rachel 05/04/18 08:54:14 Post-Care Text: E.10 Evaluates for signs and symptoms of physical injury to skin and tissue O.100 Patient is free from signs and symptoms of chemical injury Counts Verification MAGR Pre-Care Text: A.20 Verifies operative procedure, surgical site, and laterality A.20.2 Assesses the risk for unintended retained foreign body Im.20 Performs required counts Entry 1 Procedure Arthroplasty Hip Total(Right) Counts Verification Initial Counts Items included in Sponges, Sharps Initial Counts Manual the Initial Count Method Initial Counts Marcela Rachel, Initial Count Time 05/04/18 07:25:00 Performed By Tamika Alva ENDOCRINOLOGY TEACHER Counts Verification Final Counts Items Included in Sponges, Sharps Final Count Status Correct Final Count Final Counts Marcela Rachel, Surgeon notified of Yes Performed By Tamika Alva ENDOCRINOLOGY TEACHER final counts status Outcome Met (O.20) Yes Last Modified By: Marcela Rachel 05/04/18 11:44:30 Post-Care Text: E.50 Evaluates results of the surgical count O.20 Patient is free from unintended retained foreign objects Patient Care Devices MAGR Pre-Care Text: A.200 Assesses risk for normothermia regulation A.40 Verifies presence of prosthetics or corrective devices Im.280 Implements thermoregulation measures Im.60 Uses supplies and equipment within safe parameters Entry 1 Entry 2 Equipment Type FLOWTRON FOOT CUFF REG BLANKET UPPER BODY OR Serial ?# [id number] Equipment Setting FACTORY SETTING 43C Last Modified By: Marcela Rachel Cynthia M 05/04/18 08:55:23 05/04/18 08:56:01 Post-Care Text: E.10 Evaluates signs and symptoms of physical injury to skin and tissue O.700 Patient is free from signs and symptoms of injury caused by extraneous objects Cautery MAGR Pre-Care Text: A.240 Assesses baseline skin condition A.40 Verifies presence of prosthetics or corrective devices Im.50 Implements protective measures to prevent injury due to electrical sources Entry 1 ESU Type Electrosurgical Unit Identification [id number] Number ESU Settings Syntegrity Cut Setting 75 Coag Setting 75 Grounding Pad Details Grounding Pad Yes Verified By Marcela Rachel Needed? Grounding Pad Site Table Grounding Pad Within Expiration Yes Date? Outcome Met (O.10) Yes Last Modified By: Marcela Rachel 05/04/18 08:57:11 Post-Care Text: E.10 Evaluates for signs and symptoms of physical injury to skin and tissue O.10 Patient is free from signs and symptoms of injury related to thermal sources Catheters, Drains & Tubes MAGR Pre-Care Text: A.310 Identifies factors associated with an increased risk for hemorrhage or fluid and electrolyte imbalance Im.250 Administers care to invasive device sites Entry 1 Device Description DENNEY Balloon Inflation 10ML Amount Present on Arrival? No Inserted By Marcela Rachel Inserted Date/Time 05/04/18 08:15:00 DC'd at End of Case? No Drainage Details Drainage System Dependent drainage bag Urinary Catheter Hand Hygiene Performed Outcome Met (O.60) Yes Checklist Before and After Insertion, Aseptic Technique and Sterile Equipment Used, Perineal Area Cleansed Before Insertion, Catheter Properly Secured, Collection Bag Positioned Below Bladder Last Modified By: Marcela Rachel 05/04/18 11:45:09 Post-Care Text: E.340 Evaluates tubes and drains are intact and functioning as planned O.60 Patient is free from signs and symptoms of injury caused by extraneous objects Cultures and Specimens MAGR Pre-Care Text: A.350 Assesses susceptibility for infection A.10 Confirms patient identity Im.320 Manages culture specimen collection Im.330 Manages specimen handling and disposition Entry 1 Cultures Ordered No Specimens Ordered Yes Outcome Met (O.40) Yes Last Modified By: Marcela Rachel 05/04/18 11:45:15 Post-Care Text: E.40 Evaluates correct processes have been performed for specimen handling and disposition O.40 Patient's specimen(s) is managed in the appropriate manner Medication Administration MAGR Pre-Care Text: A.210 Identifies physiological status Im.220 Administers prescribed medications Entry 1 Entry 2 Time Administered 05/04/18 09:55:00 05/04/18 10:45:00 Medication NS 25ml, Epi 1:1,000 BACITRACIN 0.5ml, Ketorolac 30mg 1 ml, Ropivicaine 5mg/ml x 60 ml, Clonidine 1000mcg/ 10 ml x 0.8ml Route of Admin IA TOP Dose Volume 87.3 mL By MAICOL BELLO GEORGE Outcome Met (O.130) Yes Yes Last Modified By: Marcela Rachel Cynthia M 05/04/18 11:46:44 05/04/18 11:46:44 Post-Care Text: E.20 Evaluates response to medications O.130 Patient receives appropriately administered medication(s) Implant Log MAGR Pre-Care Text: A.20 Verifies operative procedure, surgical site, and laterality Im.350 Records implants inserted during the operative or invasive procedure Entry 1 Entry 2 Entry 3 Implant/Explant Implant Implant Implant Implant Identification Description DEPUY ACETABULAR SHELL DEPUY ACETABULAR LINER DEPUY HOLE ELMINATOR PS SECTOR Serial Number Lot Number [id number] Study Abroad Advisor DEPUY DEPUY DEPUY Catalog # Size 48MM OD +4 NEUTRAL 32MM ID 48MM NONE OD Expiration Date 12/31/27 11/29/22 01/30/28 Usage Data Implant Site RIGHT HIP RIGHT HIP RIGHT HIP Quantity 1 1 1 Outcome Met (O.30) Yes Yes Yes Last Modified By: Marcela Rachel Cynthia M Cartier, Cynthia M 05/04/18 10:27:26 05/04/18 10:27:26 05/04/18 10:27:26 Entry 4 Entry 5 Entry 6 Implant/Explant Implant Implant Explant Implant Identification Description DEPUY CEMENTLESS DEPUY CERAMIC FEMORAL DEPUY CANCELLOUS BONE FEMORAL STEM STANDARD HEAD SCREW COLLAR Serial Number Lot Number [id number] Study Abroad Advisor DEPUY DEPUY DEPUY Catalog # Size KA SIZE 11 +5.0 32MM SISSY 09/14 6.5MM X 20MM TAPER Expiration Date 01/29/23 03/01/23 11/30/27 Usage Data Implant Site RIGHT HIP RIGHT HIP RIGHT HIP Quantity 1 1 1 Outcome Met (O.30) Yes Yes Yes Last Modified By: Marcela Rachel Cynthia M Cartier, Cynthia M 05/04/18 10:27:26 05/04/18 10:27:26 05/04/18 10:27:26 Post-Care Text: E.30 Evaluates verification process for correct patient, site, side and level surgery O.30 Patient's procedure is performed on the correct site, side, and level Dressing/Packing MAGR Pre-Care Text: A.350 Assesses susceptibility for infection Im.290 Administer care to wound sites Entry 1 Skin Prep Agent Yes Site Hip Removed Prior to Dressing? Site Details Right Wound closure Primary Dressing Item Details Dressing Item 4x4's, ABD Tape (Im.290) Transparent (Im.290) Outcome Met Yes Last Modified By: Marcela Rachel 05/04/18 10:51:33 Post-Care Text: E.200 Evaluates progress of wound healing O.200 Patient's wound perfusion is consistent with or improved from baseline levels Departure from OR MAGR Entry 1 Present on Depart Oxygen Via Bed Post-op Destination PACU Skin DFO Condition Dry Description Condition Warm Description Report Given To Carlee Childers RN Airway Maintenance Patient Status Stable Oxygen in Use? No Last Modified By: Marcela Rachel 05/04/18 11:48:03 Case Comments Finalized By: Marcela Rachel Document Signatures Signed By: Marcela Rachel 05/04/18 11:50 [facility] MAGR PACU Recordon MAGR PACU Record MAGR PACU Record Summary Primary Physician: MAICOL BELLO Finalized Date/Time: 05/04/18 12:07:10 Pt. Name: OANH TIM/Sex: 1960 FEMALE Med Rec #: [id number] Physician: MAICOL BELLO Financial #: [id number] Pt. Type: I Room/Bed: [facility] Admit/Disch: 05/04/18 05:50:21 - Institution: PACU Case Times MAGR Entry 1 In PACU I 05/04/18 11:07:00 Discharge from PACU 05/04/18 12:00:00 I Last Modified By: Mely Molina RN 05/04/18 12:07:07 Finalized By: Mely Molina RN Document Signatures Signed By: Mely Molina RN 05/04/18 12:07 [facility] MAGR Preoperative Recordon 0 05-04-2018 MAGR Preoperative Record MAGR Pre-Op Record Summary Primary Physician: MAICOL BELLO Finalized Date/Time: 05/04/18 11:47:50 Pt. Name: OANH TIM /Sex: 1960 FEMALE Med Rec #: [id number] Physician: MAICOL BELLO Financial #: [id number] Pt. Type: I Room/Bed: [facility] Admit/Disch: 05/04/18 05:50:21 - Institution: Pre-Op Case Times MAGR Pre-Care Text: Patient will be optimally prepared for surgery. Patient is free from s/s of injury. Provide information to patient/family related to plan of care. Verify patient allergies. Confirm identity and verify consent before the operative or invasive procedure. Entry 1 Patient Arrival Time 05/04/18 06:12:00 Preop Departure 05/04/18 07:56:00 Last Modified By: Nyla Hylton RN 05/04/18 11:47:48 Post-Care Text: Patient is prepared mentally and physically and is ready for surgery. The patient remains free from s/s of injury. Patient/family express understanding of plan of care and participate in decisions affecting his or her perioperrative plan of care. Allergies documented appropriately. Patient identifiers and consent correct. General Comments: Denies chest pain, shortness of breath or illnessess. Denies pacemaker/defib. Denies sleep apnea. Finalized By: Nyla Hylton RN Document Signatures Signed By: Nyla Hylton RN 05/04/18 11:47 [facility] Nutrition Noteon 05-04-2018 Nutrition Note 57 year old female a dm for surgery- R. Total Knee. No hx of recent wt. changes, nor GI issues, or nutrition related lab values. BMI= 20.4. Appetitie is noted as Adequate. Pt. is NPO and will eventually be advanced as tolerated with usual supplement ordered for extra dana/protein for wound healing. Currently anticipate low nutritional risk, with no expected post op complications. Monitor NPO status and appetite once advanced in diet. [facility] Progress Note - Nurseon 08 Protein mass conc Right hip dressing outer dressings changed due to some bleeding from distal incision where adaptic did not cover. Adaptic dressing was in place and remains. Dressing reinforced with gauze 4x4s and ABDs. DC instructions gone over with patient and her mother..both verbalize understanding of all insructions. leaves via wheelchair at 1850 in stable condition to private vehicle driven by mother. [Electronically Signed on: 05/04/2018 19:04 EDT] Hermila Shoemaker RN [Verified on: 05/04/2018 19:04 EDT] Hermila Shoemaker RN [facility] Protein mass conc Patient ambulates around room and approx 100 feet in marrero. tolerates well. Able to ambulate to br and void a small amount. [Electronically Signed on: 05/04/2018 19:06 EDT] Hermila Shoemaker RN [Verified on: 05/04/2018 19:06 EDT] Hermila Shoemaker RN [facility] Protein mass conc Spoke with Dr. Bello per his request regarding physical therapy evaluation. Bridgette, PT, relates patient was able to get in and out of bed and ambulated 100 feet. She also states she went over rules of new hip. States OT also instructed patient and patient was without questions or concerns. Bridgette relates no concerns regarding patient being discharged home, feels confident of safety. Order received to discharge patient home. [Electronically Signed on: 05/04/2018 15:17 EDT] Anabella Sauer RN [Verified on: 05/04/2018 15:17 EDT] Anabella Sauer RN [facility] XR Hip Complete Righton XR Hip Complete Right HIP COMPLETE RIGHT CLINICAL DATA: Chronic right hip pain, status post right hip arthroplasty today. Frontal and lateral views of the right hip were obtained with portable technique at 1132 hours and compared to the prior exam dated 02/27/2018. Right hip prosthesis seen which appears unremarkably positioned. There is generalized soft tissue swelling and subcutaneous air identified compatible with unremarkable postoperative changes. A Denney catheter is present with tip overlying the pelvis. Postoperative skin chaim are noted laterally. IMPRESSION: UNREMARKABLE POST ARTHROPLASTY APPEARANCE OF THE RIGHT HIP. Mike Larson MD JOB #: [id number] bf Final Dictated by: Mike Larson MD Dictated DT/TM: 05/04/18 12:43 Signed (Electronic Signature): Mike Larson MD 05/04/18 1:12 pm Technologist: ANTOINETTE CAO [facility] Comment on above: Order Comment: on ca ll to pacu Progress Note - Nurseon Protein mass conc Spoke with pt and informed her to be here at 6am and NPO after MN, she verbalizes understanding. [Electronically Signed on: 05/03/2018 09:32 EDT] Regino Sanchez RN [Verified on: 05/03/2018 09:32 EDT] Regino Sanchez RN [facility] Coding Summaryon 04-21-2018 Coding Summary CODING DATE: 04/21/2018 [facility] STATUS: Home PAYOR: [employer] ADMIT DX: REASON FOR VISIT DX: Z01.818 Encounter for other preprocedural examination FINAL DX: PRINCIPAL: Lj01.818 Encounter for other preprocedural examination SECONDARY: PROCEDURES DOCTOR NAME DATE NOTE: The code number assigned matches the documented diagnosis and / or procedure in the patient's chart. However, the narrative phrase printed from the coding software may appear abbreviated, or result in slightly different terminology. Coded By: Nadja Tuttle Date Saved: 04/21/2018 06:16 pm [facility] Provider Orderson 04-17-2018 Protein mass conc [id number]#1.00 OTGTIFF [facility] .Auto Diff 1on 04-16-2018 Auto Baso % 1.0 % Normal 0.2-2.0 [facility] Comment on above: Performed By: #### 6 [id number], [id number], [id number] #### [facility] (DEFAULT) [address] [place] [address] 00803 Auto Hatillo % 10 % Normal 1-12 [facility] Comment on above: Performed By: #### 6 876051, 8730241, [id number] #### [facility] (DEFAULT) [address] [place] [address] 50259 Auto Neut % 52 % Normal 44-88 [facility] Comment on above: Performed By: #### 6 732944, 6583600, [id number] #### [facility] (DEFAULT) [address] [place] [address] 86711 Baso Abs# 0.1 x10 Normal 0.0-0.2 [facility] Comment on above: Performed By: #### 6 378379, 0654691, [id number] #### [facility] (DEFAULT) [address] [place] [address] 00150 Eos Abs# 0.4 x10 Normal 0.0-0.4 [facility] Comment on above: Performed By: #### 6 [id number], 3321169, [id number] #### [facility] (DEFAULT) [address] [place] [address] 24829 Eosinophils/100 WBC (Bld) 5.4 % High 0.9-4.0 [facility] Comment on above: Performed By: #### 6 240861, 5495420, [id number] #### [facility] (DEFAULT) [address] [place] [address] Lymphocytes #/vol (Bld) 2.3 x10 Normal 1.3-2.9 [facility] Comment on above: Performed By: #### 6 090113, 3807354, [id number] #### [facility] (DEFAULT) [address] [place] [address] Lymphocytes/100 WBC (Bld) 32 % Normal 14-48 [facility] Comment on above: Performed By: #### 6 123637, 2064030, [id number] #### [facility] (DEFAULT) [address] [place] [address] Hatillo Abs# 0.7 x10 Normal 0.0-0.8 [facility] Comment on above: Performed By: #### 6 731310, 6250808, [id number] #### [facility] (DEFAULT) [address] [place] [address] Neut Abs# 3.8 x10 Normal 1.5-9.2 [facility] Comment on above: Performed By: #### 6 996617, 3112880, [id number] #### [facility] (DEFAULT) [address] [place] [address] CBC w/ Auto Diffon 8 Erythrocyte distribution width Ratio (RBC) 12.9 % Normal 11.5-15.0 [facility] Comment on above: Performed By: #### 6 039420, 7924095, [id number] #### [facility] (DEFAULT) [address] [place] [address] Hematocrit Volume Fraction (Bld) 38.6 % Normal 33.7-40.4 [facility] Comment on above: Performed By: #### 6 528868, 2348029, 93903658 #### [facility] (DEFAULT) [address] [place] [address] Hemoglobin mass conc (Bld) 13.2 g/dL Normal 11.3-15.9 [facility] Comment on above: Performed By: #### 6 392853, 8740881, [id number] #### [facility] (DEFAULT) [address] [place] [address] 89586 Man Diff? Auto Normal [facility] Comment on above: Performed By: #### 6 483220, 9701333, 89634248 #### [facility] (DEFAULT) [address] [place] [address] 51696 MCH Entitic mass (RBC) 35 pg High 24-34 [facility] Comment on above: Performed By: #### 6 210872, 6821695, [id number] #### [facility] (DEFAULT) [address] [place] [address] MCHC mass conc (RBC) 34 g/dL Normal 26-37 [facility] Comment on above: Performed By: #### 6 770792, 9922883, 54587740 #### [facility] (DEFAULT) [address] [place] [address] MCV Entitic volume (RBC) 101 fL High 81-100 [facility] Comment on above: Performed By: #### 6 112246, 7903782, [id number] #### [facility] (DEFAULT) [address] [place] [address] Platelet mean volume Entitic volume (Bld) 8.9 fL Normal 6.3-10.2 [facility] Comment on above: Performed By: #### 6 252990, 3510754, 15808308 #### [facility] (DEFAULT) [address] [place] [address] Platelets #/vol (Bld) 256 x10 Normal 138-427 [facility] Comment on above: Performed By: #### 6 056456, 1379530, [id number] #### [facility] (DEFAULT) [address] [place] [address] RBC #/vol (Bld) 3.81 x10 Normal 3.70-5.30 [facility] Comment on above: Performed By: #### 6 050180, 1778291, 68805257 #### [facility] (DEFAULT) [address] [place] [address] WBC #/vol (Bld) 7.2 x10 [facility] Comment on above: Performed By: #### 6 548013, 1684850, [id number] #### [facility] (DEFAULT) [address] [place] [address] CMP Standardon 04-16-2018 eGFR Non AA >60 [facility] Comment on above: Performed By: #### 6 622228, 6000215, 21973485 #### [facility] (DEFAULT) [address] [place] [address] eGFR AA >60 [facility] Comment on above: Result Comment: [employer] Kidney disease could be indicated at eGFRs of less than 60 ml/min/1.73m2. Kidney Failure is indicated at less than 15 ml/min/1.73m2 Performed By: #### 6 328852, 7573768, [id number] #### [facility] (DEFAULT) [address] [place] [address] Albumin mass conc 4.1 g/dL Normal 3.5-5.0 [facility] Comment on above: Performed By: #### 6 843590, 4286576, 18557694 #### [facility] (DEFAULT) [address] [place] [address] Albumin/Globulin mass ratio 1.5 {ratio} Normal 1.4-2.6 [facility] Comment on above: Performed By: #### 6 419691, 1885618, 87106967 #### [facility] (DEFAULT) [address] [place] [address] Alk Phos 46 IU/L Normal 32-91 [facility] Comment on above: Performed By: #### 6 722296, 5454673, 08090742 #### [facility] (DEFAULT) [address] [place] [address] ALT/SGPT 17.0 IU/L Normal 14.0-54.0 [facility] Comment on above: Performed By: #### 6 065941, 5675378, 45154462 #### [facility] (DEFAULT) [address] [place] [address] Anion gap molar conc 11.0 mmol/L Normal 5.0-19.0 [facility] Comment on above: Performed By: #### 6 736331, 9021882, 85302100 #### [facility] (DEFAULT) [address] [place] [address] AST/SGOT 16 IU/L Normal 15-41 [facility] Comment on above: Performed By: #### 6 549976, 6135851, 94465371 #### [facility] (DEFAULT) [address] [place] [address] Bili Total 0.7 mg/dL Normal 0.3-1.2 [facility] Comment on above: Performed By: #### 6 730816, 5695644, 86568752 #### [facility] (DEFAULT) [address] [place] [address] Calcium mass conc 9.1 mg/dL Normal 8.9-10.3 [facility] Comment on above: Performed By: #### 6 549154, 3132280, 69451855 #### [facility] (DEFAULT) [address] [place] [address] Chloride molar conc 99 mmol/L Low 101-111 [facility] Comment on above: Performed By: #### 6 372867, 9340251, 82276436 #### [facility] (DEFAULT) [address] [place] [address] CO2 molar conc 27 mmol/L Normal 21-32 [facility] Comment on above: Performed By: #### 6 883344, 9619387, 45691139 #### [facility] (DEFAULT) [address] [place] [address] Creatinine mass conc 0.61 mg/dL Normal 0.60-1.30 [facility] Comment on above: Performed By: #### 6 671069, 7250290, [id number] #### [facility] (DEFAULT) [address] [place] [address] 30769 Globulin mass conc (S) 2.7 g/dL Normal 1.5-4.3 [facility] Comment on above: Performed By: #### 6 814973, 2071531, 04003324 #### [facility] (DEFAULT) [address] [place] [address] 02598 Glucose mass conc 90.0 mg/dL Normal 74.0-118.0 [facility] Comment on above: Performed By: #### 6 034447, 8727975, 04969031 #### [facility] (DEFAULT) [address] [place] [address] 35449 Osmolality 264 mOsm/L [facility] Comment on above: Performed By: #### 6 999329, 8270225, 82993138 #### [facility] (DEFAULT) [address] [place] [address] 31613 Potassium molar conc 4.4 mmol/L Normal 3.6-5.1 [facility] Comment on above: Performed By: #### 6 350173, 9122192, 48686934 #### [facility] (DEFAULT) [address] [place] [address] 10597 Protein mass conc 6.8 g/dL Normal 6.5-8.1 [facility] Comment on above: Performed By: #### 6 235366, 4374743, 38983070 #### [facility] (DEFAULT) [address] [place] [address] 26152 Sodium molar conc 133.0 mmol/L Low 136.0-144.0 [facility] Comment on above: Performed By: #### 6 725913, 6409326, 39789327 #### [facility] (DEFAULT) [address] [place] [address] 50127 Urea nitrogen mass conc 8 mg/dL Normal 8-26 [facility] Comment on above: Performed By: #### 6 558197, 2505435, 78976125 #### [facility] (DEFAULT) [address] [place] [address] 28498 Urea nitrogen/Creatinine mass ratio 13.0 mg/mg Normal 4.6-16.2 [facility] Comment on above: Performed By: #### 6 027058, 2586758, 14878888 #### [facility] (DEFAULT) [address] [place] [address] 73214 PT/PTTon 04-16-2018 aPTT Coag time (Bld) 27 second(s) Normal 25-35 [facility] Comment on above: Performed By: #### 6 892174, 7410606, 15274640 #### [facility] (DEFAULT) [address] [place] [address] 69073 INR Coag RelTime (PPP) 1.01 {INR} Normal 0.91-1.11 [facility] Comment on above: Performed By: #### 6 471035, 0214550, 92017313 #### [facility] (DEFAULT) [address] [place] [address] 84145 Prothrombin time (PT) Coag time (PPP) 10.5 second(s) Normal 9.7-11.8 [facility] Comment on above: Performed By: #### 6 432518, 1469649, 95829144 #### [facility] (DEFAULT) [address] [place] [address] Progress Note - Nurseon 04-[address] Lim reviews pt medical clearance and ok pt for surgery, orders BMP on day of surgery. [Electronically Signed on: 04/16/2018 14:18 EDT] Regino Sanchez RN [Verified on: 04/16/2018 14:18 EDT] Regino Sanchez RN Normal [facility] UA w Culture if Ind Standard on 04-16-2018 Breakpoint UA Normal [facility] Comment on above: Performed By: #### 6 142060, 3592281, [id number] #### [facility] (DEFAULT) [address] [place] [address] 68515 Color Nom (U) YELLOW [facility] Comment on above: Performed By: #### 6 899319, 0794761, 80615622 #### [facility] (DEFAULT) [address] [place] [address] 39634 Culture? Not Indicated [facility] Comment on above: Performed By: #### 6 871510, 4881535, [id number] #### [facility] (DEFAULT) [address] [place] [address] 99083 Glucose mass conc (U) Negative [facility] Comment on above: Performed By: #### 6 033710, 6637021, 06993102 #### [facility] (DEFAULT) [address] [place] [address] 16545 Ketones Ql (U) Negative [facility] Comment on above: Performed By: #### 6 020748, 4908873, 36951861 #### [facility] (DEFAULT) [address] [place] [address] 00584 Micro? Not Indicated [facility] Comment on above: Performed By: #### 6 989418, 3828624, [id number] #### [facility] (DEFAULT) [address] [place] [address] 94435 UA Bilirubin Negative Normal [facility] Comment on above: Performed By: #### 6 601967, 2831737, 94823653 #### [facility] (DEFAULT) [address] [place] [address] 43814 UA Blood Negative Normal NEGATIVE [facility] Comment on above: Performed By: #### 6 453354, 2696730, 91098963 #### [facility] (DEFAULT) [address] [place] [address] 77272 UA Clarity CLEAR Normal CLEAR [facility] Comment on above: Performed By: #### 6 215103, 6654562, 97141510 #### [facility] (DEFAULT) [address] [place] [address] 12168 UA Leuk Est Negative Normal NEGATIVE [facility] Comment on above: Performed By: #### 6 603471, 2501267, 08588001 #### [facility] (DEFAULT) [address] [place] [address] 46539 UA Nitrite Negative Normal NEGATIVE [facility] Comment on above: Performed By: #### 6 317478, 1375007, 01013488 #### [facility] (DEFAULT) [address] [place] [address] 18099 UA pH 6.0 5-8 [facility] Comment on above: Performed By: #### 6 286927, 5729135, 49580982 #### [facility] (DEFAULT) [address] [place] [address] 58363 UA Protein Negative Normal NEGATIVE [facility] Comment on above: Performed By: #### 6 725234, 9035468, 44470545 #### [facility] (DEFAULT) [address] [place] [address] 72482 UA Spec Grav <=1.005 1.001-1.035 [facility] Comment on above: Performed By: #### 6 113760, 7805100, 54332393 #### [facility] (DEFAULT) [address] [place] [address] 30369 UA Urobilinogen 0.2 mg/dL Normal 0.2-1.0 [facility] Comment on above: Performed By: #### 6 027070, 1866410, 98282416 #### [facility] (DEFAULT) [address] [place] [address] 95491 Urine Source Clean Catch [facility] Comment on above: Performed By: #### 6 188897, 7677370, 74361923 #### [facility] (DEFAULT) [address] [place] [address] 36276 Provider Orderson 03-09-2018 Protein mass conc [id number] OTGTIFF [facility] Coding Summaryon 03-05-2018 Coding Summary CODING DATE: 03/05/2018 FINAL [facility] STATUS: Home PAYOR: [facility] APC DESCRIPTION 5521 Level 1 Imaging without Contrast ADMIT DX: REASON FOR VISIT DX: Z01.818 Encounter for other preprocedural examination FINAL DX: PRINCIPAL: Z01.818 Encounter for other preprocedural examination SECONDARY: M16.0 Bilateral primary osteoarthritis of hip 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 However, the narrative phrase printed from the coding software may appear abbreviated, or result in slightly different terminology. Coded By: Samra Gutierrez Date Saved: 03/05/2018 09:05 am [facility] Progress Note - Nurseon 02-[address] Hopper wants pt medical cleared prior to surgery d/t HTN, low potassium and sodium. [place] [employer] spoke to Мария at Dr Bello and she states that she will make sure that family doctor is aware of this. [Electronically Signed on: 03/01/2018 13:38 EDT] Regino Sanchez RN [Verified on: 03/01/2018 13:38 EDT] Regino Sanchez RN [facility] .Auto Diff 1on 02-27-2018 Auto Baso % 0.8 % Normal 0.2-2.0 [facility] Comment on above: Performed By: #### 6 316014, 0659698, 75817668 #### [facility] (DEFAULT) [address] [place] [address] Auto [place] % 12 % Normal 1-12 [facility] Comment on above: Performed By: #### 6 856248, 7613042, 68617667 #### [facility] (DEFAULT) [address] [place] [address] Auto Neut % 59 % Normal 44-88 [facility] Comment on above: Performed By: #### 6 525885, 9176784, 43397793 #### [facility] (DEFAULT) [address] [place] [address] Baso Abs# 0.0 x10 Normal 0.0-0.2 [facility] Comment on above: Performed By: #### 6 368123, 1677085, [id number] #### [facility] (DEFAULT) [address] [place] [address] Eos Abs# 0.2 x10 Normal 0.0-0.4 [facility] Comment on above: Performed By: #### 6 323575, 8822372, 74516375 #### [facility] (DEFAULT) [address] [place] [address] Eosinophils/100 WBC (Bld) 2.6 % Normal 0.9-4.0 [facility] Comment on above: Performed By: #### 6 360040, 0574767, 79794877 #### [facility] (DEFAULT) [address] [place] [address] Lymphocytes #/vol (Bld) 1.6 x10 Normal 1.3-2.9 [facility] Comment on above: Performed By: #### 6 677506, 6517673, [id number] #### [facility] (DEFAULT) [address] [place] [address] Lymphocytes/100 WBC (Bld) 26 % Normal 14-48 [facility] Comment on above: Performed By: #### 6 790791, 3034276, 71486467 #### [facility] (DEFAULT) [address] [place] [address] Hat[place] Abs# 0.7 x10 Normal 0.0-0.8 [facility] Comment on above: Performed By: #### 6 [id number], [id number], [id number] #### [facility] (DEFAULT) [address] [place] [address] Neut Abs# 3.6 x10 Normal 1.5-9.2 [facility] Comment on above: Performed By: #### 6 [id number], [id number], [id number] #### [facility] (DEFAULT) [address] [place] [address] BMP Standardon 02-27-2018 eGFR AA >60 [facility] Comment on above: Result Comment: [employer] Kidney disease could be indicated at eGFRs of less than 60 ml/min/1.73m2. Kidney Failure is indicated at less than 15 ml/min/1.73m2 Performed By: #### 1 [id number] #### [facility] (DEFAULT) [address] [place] [address] 63627 eGFR Non AA >60 [facility] Comment on above: Performed By: #### 1 [id number] #### [facility] (DEFAULT) [address] [place] [address] 94727 Anion gap molar conc 12.0 mmol/L Normal 5.0-19.0 [facility] Comment on above: Performed By: #### 1 [id number] #### [facility] (DEFAULT) [address] [place] [address] 56887 Calcium mass conc 9.1 mg/dL Normal 8.9-10.3 [facility] Comment on above: Performed By: #### 1 [id number] #### [facility] (DEFAULT) [address] [place] [address] 37593 Chloride molar conc 87 mmol/L Low 101-111 [facility] Comment on above: Performed By: #### 1 [id number] #### [facility] (DEFAULT) [address] [place] [address] 95955 CO2 molar conc 27 mmol/L Normal 21-32 [facility] Comment on above: Performed By: #### 1 [id number] #### [facility] (DEFAULT) [address] [place] [address] 47897 Creatinine mass conc 0.52 mg/dL Low 0.60-1.30 [facility] Comment on above: Performed By: #### 1 [id number] #### [facility] (DEFAULT) [address] [place] [address] 34455 Glucose mass conc 91.0 mg/dL Normal 74.0-118.0 [facility] Comment on above: Performed By: #### 1 [id number] #### [facility] (DEFAULT) [address] [place] [address] 44071 Osmolality 245 mOsm/L [facility] Comment on above: Performed By: #### 1 [id number] #### [facility] (DEFAULT) [address] [place] [address] 20083 Potassium molar conc 3.2 mmol/L Low 3.6-5.1 [facility] Comment on above: Performed By: #### 1 [id number] #### [facility] (DEFAULT) [address] [place] [address] Sodium molar conc 123.0 mmol/L Low 136.0-144.0 [facility] Comment on above: Performed By: #### 1 [id number] #### [facility] (DEFAULT) [address] [place] [address] Urea nitrogen mass conc 7 mg/dL Low 8-26 [facility] Comment on above: Performed By: #### 1 [id number] #### [facility] (DEFAULT) [address] [place] [address] Urea nitrogen/Creatinine mass ratio 13.0 mg/mg Normal 4.6-16.2 [facility] Comment on above: Performed By: #### 1 [id number] #### [facility] (DEFAULT) [address] [place] [address] CBC w/ Auto Diffon 8 Erythrocyte distribution width Ratio (RBC) 12.6 % Normal 11.5-15.0 [facility] Comment on above: Performed By: #### 6 [id number], [id number], [id number] #### [facility] (DEFAULT) [address] [place] [address] Hematocrit Volume Fraction (Bld) 38.7 % Normal 33.7-40.4 [facility] Comment on above: Performed By: #### 6 [id number], [id number], [id number] #### [facility] (DEFAULT) [address] [place] [address] Hemoglobin mass conc (Bld) 13.8 g/dL Normal 11.3-15.9 [facility] Comment on above: Performed By: #### 6 [id number], [id number], [id number] #### [facility] (DEFAULT) [address] [place] [address] Man Diff? Auto Normal [facility] Comment on above: Performed By: #### 6 [id number], [id number], [id number] #### [facility] (DEFAULT) [address] [place] [address] 34959 MCH Entitic mass (RBC) 34 pg Normal 24-34 [facility] Comment on above: Performed By: #### 6 [id number], [id number], [id number] #### [facility] (DEFAULT) [address] [place] [address] 33173 MCHC mass conc (RBC) 36 g/dL Normal 26-37 [facility] Comment on above: Performed By: #### 6 [id number], [id number], [id number] #### [facility] (DEFAULT) [address] [place] [address] 72519 MCV Entitic volume (RBC) 96 fL Normal 81-100 [facility] Comment on above: Performed By: #### 6 [id number], [id number], [id number] #### [facility] (DEFAULT) [address] [place] [address] Platelet mean volume Entitic volume (Bld) 8.5 fL Normal 6.3-10.2 [facility] Comment on above: Performed By: #### 6 [id number], [id number], [id number] #### [facility] (DEFAULT) [address] [place] [address] 95267 Platelets #/vol (Bld) 362 x10 Normal 138-427 [facility] Comment on above: Performed By: #### 6 [id number], [id number], [id number] #### [facility] (DEFAULT) [address] [place] [address] 24611 RBC #/vol (Bld) 4.04 x10 Normal 3.70-5.30 [facility] Comment on above: Performed By: #### 6 [id number], [id number], [id number] #### [facility] (DEFAULT) [address] [place] [address] 70940 WBC #/vol (Bld) 6.1 x10 [facility] Comment on above: Performed By: #### 6 [id number], [id number], [id number] #### [facility] (DEFAULT) [address] [place] [address] 16983 PT/PTTon 02-27-2018 aPTT Coag time (Bld) 30 second(s) Normal 25-35 [facility] Comment on above: Performed By: #### 6 [id number], [id number], [id number] #### [facility] (DEFAULT) [address] [place] [address] INR Coag RelTime (PPP) 1.02 {INR} Normal 0.91-1.11 [facility] Comment on above: Performed By: #### 6 [id number], [id number], [id number] #### [facility] (DEFAULT) [address] [place] [address] Prothrombin time (PT) Coag time (PPP) 10.6 second(s) Normal 9.7-11.8 [facility] Comment on above: Performed By: #### 6 [id number], [id number], [id number] #### [facility] (DEFAULT) [address] [place] [address] UA Ghsrc3yi 02-27-2018 RBC #/vol (U) None Seen [facility] Comment on above: Order Comment: Urina lysis Microscopic order added on by [employer] Rules system. Performed By: #### 1 [id number], [id number] #### [facility] (DEFAULT) [address] [place] [address] UA Bacteria Trace [facility] Comment on above: Order Comment: Urina lysis Microscopic order added on by [employer] system. Performed By: #### 1 [id number], [id number] #### [facility] (DEFAULT) [address] [place] [address] UA Squam Epi Moderate Normal [facility] Comment on above: Order Comment: Urina lysis Microscopic order added on by [employer] system. Performed By: #### 1 [id number], [id number] #### [facility] (DEFAULT) [address] [place] [address] UA WBC 0-2 [facility] Comment on above: Order Comment: Urina lysis Microscopic order added on by [employer] system. Performed By: #### 1 [id number], [id number] #### [facility] (DEFAULT) [address] [place] [address] UA w Culture if Ind Standard on 02-27-2018 Breakpoint UA Normal [facility] Comment on above: Performed By: #### 1 [id number], [id number] #### [facility] (DEFAULT) [address] [place] [address] 42052 Color Nom (U) YELLOW [facility] Comment on above: Performed By: #### 1 [id number], [id number] #### [facility] (DEFAULT) [address] [place] [address] 03300 Culture? Not Indicated [facility] Comment on above: Performed By: #### 1 [id number], [id number] #### [facility] (DEFAULT) [address] [place] [address] 85856 Glucose mass conc (U) Negative [facility] Comment on above: Performed By: #### 1 [id number], [id number] #### [facility] (DEFAULT) [address] [place] [address] 06081 Ketones Ql (U) Negative [facility] Comment on above: Performed By: #### 1 [id number], [id number] #### [facility] (DEFAULT) [address] [place] [address] 21800 Micro? Indicated [facility] Comment on above: Performed By: #### 1 [id number], [id number] #### [facility] (DEFAULT) [address] [place] [address] 94775 UA Bilirubin Negative Normal [facility] Comment on above: Performed By: #### 1 [id number], [id number] #### [facility] (DEFAULT) [address] [place] [address] 81496 UA Blood Negative Normal NEGATIVE [facility] Comment on above: Performed By: #### 1 [id number], [id number] #### [facility] (DEFAULT) [address] [place] [address] 53594 UA Clarity CLEAR Normal CLEAR [facility] Comment on above: Performed By: #### 1 [id number], [id number] #### [facility] (DEFAULT) [address] [place] [address] 37619 UA Leuk Est TRACE Abnormal NEGATIVE [facility] Comment on above: Performed By: #### 1 [id number], [id number] #### [facility] (DEFAULT) [address] [place] [address] 27235 UA Nitrite Negative Normal NEGATIVE [facility] Comment on above: Performed By: #### 1 [id number], [id number] #### [facility] (DEFAULT) [address] [place] [address] 22036 UA pH 6.5 5-8 [facility] Comment on above: Performed By: #### 1 [id number], [id number] #### [facility] (DEFAULT) [address] [place] [address] 31882 UA Protein Negative Normal NEGATIVE [facility] Comment on above: Performed By: #### 1 [id number], [id number] #### [facility] (DEFAULT) [address] [place] [address] 30436 UA Spec Grav 1.010 1.001-1.035 [facility] Comment on above: Performed By: #### 1 [id number], [id number] #### [facility] (DEFAULT) [address] [place] [address] 40086 UA Urobilinogen 0.2 mg/dL Normal 0.2-1.0 [facility] Comment on above: Performed By: #### 1 [id number], [id number] #### [facility] (DEFAULT) [address] [place] [address] 95866 Urine Source Clean Catch Normal [facility] Comment on above: Performed By: #### 1 [id number], [id number] #### [facility] (DEFAULT) [address] [place] [address] 68915 XR Chest 2 Viewson 8 XR Chest 2 Views Hip one-view right with pelvis and chest two views CLINICAL DATA: Chronic right hip pain, required preoperative chest clearance prior to right hip surgery, chronic smoking history. One-view right hip and AP view pelvis study was performed. There are marked degenerative changes about the right hip joint with marked joint space narrowing superiorly. There is moderate sclerosis of the adjacent bony structures with moderate degenerative subchondral cystic changes. There is moderate superolateral spurring about the acetabulum. There is moderate spurring of the right femoral head. There are mild to moderate degenerative changes about the visualized left hip joint with moderate joint space narrowing and mild to moderate sclerosis of the acetabulum with mild acetabular spurring laterally. No definite acute fracture or dislocation is seen. Soft tissues are within normal limits. IMPRESSION: 1. ONE-VIEW RIGHT HIP AND AP VIEW PELVIS STUDY DEMONSTRATES MARKED DEGENERATIVE CHANGES ABOUT THE RIGHT HIP JOINT. 2. MILD TO MODERATE DEGENERATIVE CHANGES ABOUT THE LEFT HIP JOINT. 3. FOLLOW-UP NEEDED. PA and lateral views of the chest were obtained. Heart and mediastinal contours are unremarkable in appearance. No acute infiltrate or consolidations are seen. There are mild degenerative changes in the dorsal spine. There is suggestion of old healed left rib fractures. IMPRESSION: NO ACUTE PROCESS SEEN IN THE CHEST. Mike Larson MD JOB #: [id number] ul Final Dictated by: Mike Larson MD Dictated DT/TM: 02/27/18 2:53 Signed (Electronic Signature): Mike Larson MD 02/27/18 3:58 pm Technologist: NU CAO Normal [facility] Encounters Encounter Date Encounter Type Care Provider Facility Start: 12-06-2023 End: 12-07-2023 ambulatory SHEILA CASTELLANO Not Available Start: 11-27-2023 End: 11-27-2023 ambulatory MADRIGAL FAWWAD Not Available Start: 11-14-2022 End: 11-14-2022 ambulatory MADRIGAL H FAWWAD Facility:[facility] Start: 10-24-2022 End: 10-25-2022 ambulatory MADRIGAL H FAWWAD Facility:[facility] Start: 10-20-2022 End: 10-21-2022 ambulatory MADRIGAL H FAWWAD Facility:[facility] Start: 02-08-2022 ambulatory MADRIGAL H FAWWAD Facilit y:[facility] Start: 11-22-2021 End: 11-23-2021 ambulatory MADRIGAL H FAWWAD Facility:[facility] Start: 05-04-2018 End: 01-08-2019 Evaluation and management of inpatient [facility] Facility:[facility] Start: 04-17-2018 End: 04-17-2018 Patient encounter procedure [facility] Facility:[facility] Start: 02-27-2018 End: 02-28-2018 Patient encounter procedure MAICOL BELLO Facility:[facility] Payers Date Payer Category Payer Self-pay [employer] 1960 Unknown [id number] 2.16.84 [id number] 1960 Unknown [id number] 2.16.84 [id number] 1960 Unknown [id number] 2.16.84 [id number] 1960 Unknown [id number] 2.16.84 [id number] 1960 Unknown [id number] 2.16.84 [id number] 1960 Unknown [id number] 2.16.84 [id number] 1960 Unknown [id number] 2.16.84 [id number] 1960 Unknown [id number] 2.16.84 [id number] 1960 Unknown [id number] 2.16.84 [id number] 1960 Unknown [id number] 2.16.84 0.1.719851.3.579.2.1259 1960 Unknown [id number] 2.16.84 [id number] 1959 Unknown [id number] Summary Purpose Family History No Family History Records FoundNo Family History Records FoundNo Family History Records Found Advance Directives No Advanced Directives Records FoundNo Advanced Directives Records FoundNo Advanced Directives Records Found Hospital Course Note [facility] Clinical Discharge Summary PERSON INFORMATION Name OANH TIM Age 57 Years 60 Sex FEMALE Language Kinyarwanda PCP ELMO BURTON Marital Status Med Service Surgery Acct# Arrival 05/04/18 05:50:21 Visit Reason SURGERY - RIGHT TOTAL HIP Acuity LOS Address: [address] [place] [address] [address] [facility] [address] Comment: PROVIDER INFORMATION VITALS INFORMATION Vital Sign Triage Latest Temp Oral 36.7 DegC 36.7 DegC Temp Temporal 35.7 DegC 36.4 DegC Temp Intravascular Temp Axillary Temp Rectal 02 Sat 97 % 100 % Respiratory Rate 16 br/min 18 br/min Peripheral Pulse Rate 74 bpm 54 bpm Apical Heart Rate Blood Pressure 170 mmHg / 92 mmHg 176 mmHg / 75 mmHg Comment: MEDICAL INFORMATION Allergy Info: Allergies No known allergies Prescriptions Given: Prescription Display acetaminophen-oxycodone (Percocet 5/325 oral tablet) 2 tab(s), PO, q6hr, x 7 day(s), PRN: for pain, # 50 tab(s), 0 Refill(s), 05/11/18 Home Meds Display cloNID (more content not included)... Note Patient was admitted to the hospital on the above-mentioned date and underwent a right total hip arthroplasty. She progressed well throughout her hospital stay and was placed in physical therapy to gait training with walker weightbearing as tolerated and increase strength and range of motion right knee and work on steps and transfers. Patient progressed well on the day of surgery and desired to be discharged to home the day of surgery. She was discharged with DVT and infection prophylaxis protocols. Patient is expected to make a full and expedient recovery and to achieve a level of ambulation similar to her slightly less than prior to her admission. Patient at time of discharge was stable and her wound was stable. Patient exhibited no difficulties with spontaneous urination or flatus. She showed excellent oral intake of fluids and solids without difficulty. She denied chest pain shortness of breath or abdominal pain. She stated that she did have right hip pain but was managed with ora (more content not included)... Additional Source Comments INFORMATION SOURCE (unrecogn ized section and content) DATE CREATED AUTHOR 01/09/2019 [facility] DATE CREATED AUTHOR AUTHOR'S ORGANIZ ATION 11/19/2022 [facility] DATE CREATED AUTHOR AUTHOR'S ORGANIZ ATION 12/10/2023 [facility] FOR RECORDS PERTAINING TO PATIENTS WHO ARE OR HAVE BEEN ENROLLED IN A CHEMICAL DEPENDENCY/SUBSTANCEABUSE PROGRAM, SOME INFORMATION MAY BE OMITTED. This clinical summary was aggregated from multiple sources. Caution should be exercised in using it in the provision of clinical care. This summary normalizes information from multiple sources, and as a consequence, information in this document may materially change the coding, format and clinical context of patient data. In addition, data may be omitted in some cases. CLINICAL DECISIONS SHOULD BE BASED ON THE PRIMARY CLINICAL RECORDS. [facility] [employer] [facility]. provides no warranty or guarantee of the accuracy or completeness of information in this document.
--- OUTSIDE RECORDS SUMMARY | 2024-01-16 10:27 | XMS_ITS | CCD ---
Author Organization [facility] Care Team Providers Care Interactive Media Marketing Strategist Name Role Phone STEPNUPUR MAICOL C Admitting Unavailable STEPANIC, MAICOL C Attending Unavailable ELMO BURTON Primary Care Unavailable STEPANIC, MAICOL C Admitting Unavailable STEPANIC, MAICOL C Attending Unavailable ELMO BURTON Primary Care Unavailable Kodi Mccoy Attending Unavailable [...] spec) Not detected Normal NOT DETECTED [facility] Comment on above: Result Comment: [...] for this test is supported by the [place] of Health and Human Service's declaration that [...] no longer be used). Previously reported as: [id number] On 11/14/2022 17:33 By RC01 Performed By: #### [facility] #### [facility] [address] [address] [address] Pito Johnson Result Comment: This test is not yet approved or cleared by the [place] FDA. When there are no FDA-approved or cleared tests available, and other criteria are met, FDA can make tests available under an emergency access mechanism called an Emergency Use Authorization (EUA). The EUA for this test is supported by the [place] of Health and Human Service's (HHS's) declaration [...] SARS-CoV-2. INFLUENZA A AND B AG[facility] 11[facility] Normal [facility] Comment on above: Result Comment: Nega tive for Flu A protein angiten. Infection due to Flu A cannot be ruled out. Flu A angiten in the sample may be below the detection limit of the test. Performed By: #### I NFLUAB #### [facility] [address] [place] [address] Dr. Pito Johnson [facility] SEE BELOW Normal [facility] Comment on above: Result Comment: Nega tive for Flu B protein antigen. Infection due to Flu B cannot be ruled out. Flu B antigen in the sample may be below the detection limit of the test. Performed By: #### I NFLUAB #### [facility] [address] [address] [address] Pito Johnson INFLUENZA A AG Negative Normal NEGATIVE SEE COMMENT [facility] Comment on above: Performed By: #### I NFLUAB #### [facility] [address] [address] [address] Pito Johnson INFLUENZA B AG Negative Normal NEGATIVE SEE COMMENT [facility] Comment on above: Performed By: #### I NFLUAB #### [facility] [address] [address] [address] Pito Johnson PROF CHEM 8 (BAS METB)on Anion gap [Moles/Vol] 10.2 mmol/L Normal [facility] Comment on above: Performed By: #### B MP #### [facility] [address] [address] [address] Pito Johnson Calcium [Mass/Vol] 9.2 mg/dL Normal 8.5-10.1 [facility] Comment on above: Performed By: #### B MP #### [facility] [address] [address] [address] Pito Johnson Chloride [Moles/Vol] 96 mmol/L Critically low 98-107 [facility] Comment on above: Performed By: #### B MP #### [facility] [address] [address] [address] Pito Johnson CO2 [Moles/Vol] 31.1 mmol/L Normal 21.0-32.0 [facility] Comment on above: Performed By: #### B MP #### [facility] [address] [address] [address] Pito Johnson Creatinine [Mass/Vol] 0.65 mg/dL Normal 0.55-1.02 [facility] Comment on above: Performed By: #### B MP #### [facility] [address] [address] [address] Pito Johnson EGFR-AF INDIAN >60 Normal >=60 [facility] Comment on above: Performed By: #### B MP #### [facility] [address] [address] [address] Pito Johnson EGFR-NON AF INDIAN >60 Normal >=60 [facility] Comment on above: Performed By: #### B MP #### [facility] [address] [address] [address] Pito Johnson Glucose [Mass/Vol] 102 mg/dL Normal 74-106 [facility] Comment on above: Performed By: #### B MP #### [facility] [address] [address] [address] Pito Johnson Potassium [Moles/Vol] 4.3 mmol/L Normal 3.5-5.1 [facility] Comment on above: Performed By: #### B MP #### [facility] [address] [place] [address] Dr. Pito Johnson Sodium [Moles/Vol] 133 mmol/L Critically low 136-145 [facility] Comment on above: Performed By: #### B MP #### [facility] [address] [place] [address] Dr. Pito Johnson Urea nitrogen [Mass/Vol] 12.0 mg/dL Normal 7.0-18.0 [facility] Comment on above: Performed By: #### B MP #### [facility] [address] [place] [address] Dr. Pito Johnson Urea nitrogen/Creatinine [Mass ratio] 18.5 mg/mg Normal [facility] Comment on above: Performed By: #### B MP #### [facility] [address] [place] [address] Dr. Pito Johnson CBC AUTO DIFFon 10-20-2022 BASO # 0.1 103/ul Normal 0.0-0.1 [facility] Comment on above: Performed By: #### C BC #### [facility] [address] [place] [address] Dr. Pito Johnson Basophils/100 WBC (Bld) 0.8 % Normal 0.2-2.0 [facility] Comment on above: Performed By: #### C BC #### [facility] [address] [place] [address] Dr. Pito Johnson EO # 0.3 103/ul Normal 0.0-0.7 [facility] Comment on above: Performed By: #### C BC #### [facility] [address] [place] [address] Dr. Pito Johnson Eosinophils/100 WBC (Bld) 3.4 % Normal 0.9-7.0 [facility] Comment on above: Performed By: #### C BC #### [facility] [address] [place] [address] Dr. Pito Johnson Erythrocyte distribution width (RBC) [Ratio] 12.0 % Normal 11.0-15.0 [facility] Comment on above: Performed By: #### C BC #### [facility] [address] [place] [address] Dr. Pito Johnson Hematocrit (Bld) [Volume fraction] 39.5 % Normal 36.0-48.0 [facility] Comment on above: Performed By: #### C BC #### [facility] [address] [place] [address] Dr. Pito Johnson Hemoglobin (Bld) [Mass/Vol] 14.0 g/dL Normal 12.0-16.0 [facility] Comment on above: Performed By: #### C BC #### [facility] [address] [place] [address] Dr. Pito Johnson IG # 0.03 10e3/ul Normal 0.00-0.03 [facility] Comment on above: Performed By: #### C BC #### [facility] [address] [place] [address] Dr. Pito Johnson IG % 0.3 % Normal 0.0-0.5 [facility] Comment on above: Performed By: #### C BC #### [facility] [address] [place] [address] Dr. Pito Johnson LYMPH # 2.2 103/ul Normal 1.2-3.8 [facility] Comment on above: Performed By: #### C BC #### [facility] [address] [place] [address] Dr. Pito Johnson Lymphocytes/100 WBC (Bld) 24.9 % Normal 20.5-60.0 [facility] Comment on above: Performed By: #### C BC #### [facility] [address] [place] [address] Dr. Pito Johnson MANUAL DIFF REQ NO Normal [facility] Comment on above: Performed By: #### C BC #### [facility] [address] [place] [address] Dr. Pito Johnson MCH (RBC) [Entitic mass] 34.1 pg Critically high 26.7-34.0 [facility] Comment on above: Performed By: #### C BC #### [facility] [address] [place] [address] Dr. Pito Johnson MCHC (RBC) [Mass/Vol] 35.4 g/dL Critically high 29.9-35.2 [facility] Comment on above: Performed By: #### C BC #### [facility] [address] [place] [address] Dr. Pito Johnson MCV (RBC) [Entitic vol] 96.1 fL Normal 81.0-99.0 [facility] Comment on above: Performed By: #### C BC #### [facility] [address] [place] [address] Dr. Pito Johnson MONO # 0.9 103/ul Critically high 0.3-0.[address] [facility] Comment on above: Performed By: #### C BC #### [facility] [address] [place] [address] Dr. Pito Johnson Monocytes/100 WBC (Bld) 10.0 % Normal 1.7-12.0 [facility] Comment on above: Performed By: #### C BC #### [facility] [address] [place] [address] Dr. Pito Johnson NEUT # 5.4 103/ul Normal 1.4-6.5 [facility] Comment on above: Performed By: #### C BC #### [facility] [address] [place] [address] Dr. Pito Johnson Neutrophils/100 WBC (Bld) 60.6 % Normal 43.0-75.0 [facility] Comment on above: Performed By: #### C BC #### [facility] [address] [address] [address] Pito Johnson Platelet mean volume (Bld) [Entitic vol] 8.7 fL Critically low 9.5-13.5 [facility] Comment on above: Performed By: #### C BC #### [facility] [address] [address] [address] Pito Johnson PLT 376 103/ul Normal 150-450 [facility] Comment on above: Performed By: #### C BC #### [facility] [address] [address] [address] Pito Johnson RBC 4.11 106/ul Critically low 4.20-5.40 [facility] Comment on above: Performed By: #### C BC #### [facility] [address] [address] [address] Pito Johnson WBC 8.9 103/ul Normal 4.0-11.0 [facility] Comment on above: Performed By: #### C BC #### [facility] [address] [address] [address] Pito Johnson PROF CHEM 8 (BAS METB)on Anion gap [Moles/Vol] 12.0 mmol/L Normal [facility] Comment on above: Performed By: #### B MP #### [facility] [address] [place] [address] Dr. Pito Johnson Calcium [Mass/Vol] 9.6 mg/dL Normal 8.5-10.1 [facility] Comment on above: Performed By: #### B MP #### [facility] [address] [place] [address] Dr. Pito Johnson Chloride [Moles/Vol] 90 mmol/L Critically low 98-107 [facility] Comment on above: Performed By: #### B MP #### [facility] [address] [place] [address] Dr. Pito Johnson CO2 [Moles/Vol] 30.1 mmol/L Normal 21.0-32.0 [facility] Comment on above: Performed By: #### B MP #### [facility] [address] [place], [place] [address] Dr. Pito Johnson Creatinine [Mass/Vol] 0.69 mg/dL Normal 0.55-1.02 [facility] Comment on above: Performed By: #### B MP #### [facility] [address] [place] [address] Dr. Pito Johnson EGFR-AF INDIAN >60 Normal >=60 [facility] Comment on above: Performed By: #### B MP #### [facility] [address] [place] [address] Dr. Pito Johnson EGFR-NON AF INDIAN >60 Normal >=60 [facility] Comment on above: Performed By: #### B MP #### [facility] [address] [place] [address] Dr. Pito Johnson Glucose [Mass/Vol] 105 mg/dL Normal 74-106 [facility] Comment on above: Performed By: #### B MP #### [facility] [address] [place] [address] Dr. Pito Johnson Potassium [Moles/Vol] 4.1 mmol/L Normal 3.5-5.1 [facility] Comment on above: Performed By: #### B MP #### [facility] [address] [place] [address] Dr. Pito Johnson Sodium [Moles/Vol] 128 mmol/L Critically low 136-145 [facility] Comment on above: Performed By: #### B MP #### [facility] [address] [place] [address] Dr. Pito Johnson Urea nitrogen [Mass/Vol] 19.0 mg/dL Critically high 7.0-18.0 [facility] Comment on above: Performed By: #### B MP #### [facility] [address] [place] [address] Dr. Pito Johnson Urea nitrogen/Creatinine [Mass ratio] 27.5 mg/mg Normal [facility] Comment on above: Performed By: #### B MP #### [facility] [address] [place] [address] Dr. Pito Johnson MG MAMM SCREEN 3D MINERVA CADon 11-22-2021 MG MAMM SCREEN 3D MINERVA CAD Patient: OANH TIM Exam Date: 11/22/2021 : 1960 Gender:F Ordering : SHAIKH Robyn MEADOWS . Admission #: [id number] Family : Order #: [id number] CLICK HERE TO VIEW EXAM RADIOLOGY REPORT PROCEDURE: MAMMOGRAM SCREENING 3D BILATERAL CAD COMPARISON: None. INDICATIONS: Screening mammography Calculator Name NCI Breast Cancer Risk Assessment Tool 5 Year Breast Cancer Risk 1.80% Lifetime Breast Cancer Risk 8.60% Personal Breast Cancer No Personal Ovarian Cancer No Treatments None Family Cancers Grandfather-maternal with stomach cancer at age 75. LOCATION: [facility] BREAST COMPOSITION: Extremely dense, which [...] Jessica M.D. on 11/23/2021 at 11:49 Normal [facility] Provider Orderson 05-21-2018 Protein mass conc [id number]#1.00 [facility] Nurse[facility] 05-[address] Lennon's office notified of Na 123 on 05/04/18 [Electronically Signed on: 05/14/2018 14:12 EDT] Krupa Walker RN [Verified on: 05/14/2018 14:12 EDT] Krupa Walker RN [facility] Lab - AP Resultson 08-10-201 8 Lab - AP Results [id number]#1.00 [facility] Pathology Sendout Teston Pathology Send Out. See Report [facility] Comment on above: Performed By: #### 2 [id number] ####[facility] (DEFAULT)[address] [place] [address] Coding Summaryon 05-10-2018 Coding Summary CODING DATE: 05/10/2018 FINAL [facility] STATUS: Home PAYOR: Bal Youngblood Grouper: 470 MS-DRG MAJOR HIP AND KNEE JOINT REPLACEMENT OR REATTACHMENT OF LOWER EXTREMITY W/O CARE HOME Low Trim 0 High Trim 999 ADMIT DX: M16.11 Unilateral primary osteoarthritis, right hip REASON FOR VISIT DX: FINAL DX: PRINCIPAL: M16.11 Y Unilateral primary osteoarthritis, right hip SECONDARY: I10 Y Essential (primary) hypertension PROCEDURES DOCTOR NAME DATE [id number] Replacement of Right Hip Joint MAICOL BELLO 05/04/2018 with Metal on Polyethylene Synthetic Substitute, Uncemented, Open Approach NOTE: The code number assigned matches the documented diagnosis and / or procedure in the patient's chart. However, the narrative phrase printed from the coding software may appear abbreviated, or result in slightly different terminology. Coded By: Yenifer Little Date Saved: 05/10/2018 12:39 pm [facility] Advance Directive Documentso n 05-07-2018 Advance Directive Documents [id number]#1.00 [facility] Consent Formson 05-07-2018 Consent Forms [id number]#1.00 [facility] History and Physicalon 05-07 History and Physical [id number]#1.00 [facility] Outside Recordson 05-07-2018 Outside Records [id number]#1.00 [facility] Outside Records [id number]#1.00 [facility] Telemetry Stripson 8 Telemetry Strips [id number]#1.00 [facility] Anesthesia Noteon 05-04-2018 Anesthesia Note Patient: [...] on: 05/04/2018 13:53 EDT] Porfirio Hodge MD [facility] Anesthesia Note Patient: OANH TIM Age: 57 [...] history): All Problems Arthritis / SNOMED CT 6628450 / Confirmed Hypertension / SNOMED CT 6991988647 / Confirmed Histories Family History: Pancreatic cancer Sister Heart attack Father CVA (cerebral vascular accident).... Father Diabetes Father Procedure history: Dilation and curettage (08119363) in 1979 at 19 Years. Social History [...] Oriented. Review / Management Laboratory Results Plan [place] Society of Anesthesiologists#(ASA ) physical status classification: Class II. Anesthetic Preoperative Plan Anesthesia: Regional Spinal. Anesthetic plan, risks, benefits, and alternatives discussed with the patient and/or family. Patient verbalized understanding. Informed consent was given. [Electronically Signed on: 05/04/2018 07:54 EDT] Porfirio Hodge MD [Verified on: 05/04/2018 07:54 EDT] Porfirio Hodge MD Normal [facility] BMP Standardon 05-04-2018 eGFR AA >60 [facility] Comment on above: Result Comment: [employer] Sales Representative med Kidney disease could be indicated at eGFRs of less than 60 ml/min/1.73m2. Kidney Failure is indicated at less than 15 ml/min/1.73m2 Performed By: #### 6 [id number], [id number], [id number] #### [facility] (DEFAULT) [address] [place] [address] eGFR Non AA >60 [facility] Comment on above: Performed By: #### 6 [id number], [id number], [id number] #### [facility] (DEFAULT) [address] [place] [address] Anion gap molar conc 15.0 mmol/L Normal 5.0-19.0 [facility] Comment on above: Performed By: #### 6 [id number], [id number], [id number] #### [facility] (DEFAULT) [address] [place] [address] Calcium mass conc 9.5 mg/dL Normal 8.9-10.3 [facility] Comment on above: Performed By: #### 6 447019, [id number], [id number] #### [facility] (DEFAULT) [address] [place] [address] Chloride molar conc 88 mmol/L Low 101-111 [facility] Comment on above: Performed By: #### 6 [id number], [id number], [id number] #### [facility] (DEFAULT) [address] [place] [address] CO2 molar conc 25 mmol/L Normal 21-32 [facility] Comment on above: Performed By: #### 6 416050, [id number], [id number] #### [facility] (DEFAULT) [address] [place] [address] Creatinine mass conc 0.50 mg/dL Low 0.60-1.30 [facility] Comment on above: Performed By: #### 6 711179, 1232662, [id number] #### [facility] (DEFAULT) [address] [place] [address] 23057 Glucose mass conc 111.0 mg/dL Normal 74.0-118.0 [facility] Comment on above: Performed By: #### 6 694016, 7281072, [id number] #### [facility] (DEFAULT) [address] [place] [address] Osmolality 248 mOsm/L [facility] Comment on above: Performed By: #### 6 609175, [id number], [id number] #### [facility] (DEFAULT) [address] [place] [address]39[address] Potassium molar conc 4.9 mmol/L Normal 3.6-5.1 [facility] Comment on above: Performed By: #### 6 758922, [id number], [id number] #### [facility] (DEFAULT) [address] [place] [address] Sodium molar conc 123.0 mmol/L Low 136.0-144.0 [facility] Comment on above: Performed By: #### 6 925304, [id number], [id number] #### [facility] (DEFAULT) [address] [place] [address] Urea nitrogen mass conc 11 mg/dL Normal 8-26 [facility] Comment on above: Performed By: #### 6 629611, [id number], [id number] #### [facility] (DEFAULT) [address] [place] [address] Urea nitrogen/Creatinine mass ratio 22.0 mg/mg High 4.6-16.2 [facility] Comment on above: Performed By: #### 6 294057, [id number], [id number] #### [facility] (DEFAULT) [address] [place] [address] Education Noteon 05-04-2018 Education Note Education Materials [...] impact or explosive contractures to operative hip [facility] History and Physicalon 05-04 History and Physical [id number]#1.0 [id number] [facility] Inpatient Patient Summaryon 05-04-2018 Inpatient Patient Summary [facility] [address] [place] [address] Patient Discharge Instructions Name: OANH TIM : 60 Patient [address]: [address] [place] [address] Primary Care Provider: Name: ELMO BURTON After you are discharged if you find you have any questions, please, call [phone] ext [phone] to speak to a nurse. Discharge Diagnosis: [...] business decisions or sign any legal documents [facility] would like to thank you for allowing us to assist you with your healthcare needs. The following includes patient education materials and information regarding your injury/illness. OANH TIM has been given the following list of follow-up instructions, prescriptions, and patient education materials: Follow-up Instructions With: Address: When: ELMO BURTON [address] [place] [address] [place] [address] Business (1) With: Address: When: Mathieu Mccarthy [address] [place] [address], [facility] [address] [address] Business (1) In 2 weeks 05/18/18 Comments: [...] for Disease Control and Prevention June 2014 [facility] MAGR Intraoperative Recordon 05-04-2018 MAGR Intraoperative Record MAGR Intra-Op Record Summary Primary Physician: MAICOL BELLO Finalized Date/Time: 05/04/18 11:50:08 Pt. Name: OANH TIM/Sex: 1960 FEMALE Med Rec #: [id number] Physician: MAICOL BELLO Financial #: [id number] Pt. Type: I Room/Bed: [facility] Admit/Disch: 05/04/18 05:50:21 - Institution: Case Times [...] Role Performed Surgeon - Primary Anesthesiologist of Cell Maker Record Time In 05/04/18 07:59:00 05/04/18 07:59:00 05/04/18 07:59:00 Time Out 05/04/18 11:08:00 05/04/18 11:08:00 05/04/18 11:08:00 Procedure Arthroplasty Hip Arthroplasty Hip Arthroplasty Hip Total(Right) Total(Right) Total(Right) Last Modified By: Marcela Rachel Cynthia M Cartier, Cynthia M 05/04/18 11:43:27 05/04/18 11:43:27 05/04/18 11:43:27 Entry 4 Entry 5 Entry 6 Case Attendee Caren Gagnon RN, Lauren M CST Bear, Stacy M PUGGER HELPER Role Performed Cell Maker Certified Wellness Program Manager Scrub Personnel Time In 05/04/18 07:59:00 05/04/18 [...] Time 05/04/18 07:25:00 Performed By Tamika Alva PUGGER HELPER Counts Verification Final Counts Items Included in Sponges, Sharps Final Count Status Correct Final Count Final Counts Marcela Rachel, Surgeon notified of Yes Performed By Tamika Alva PUGGER HELPER final counts status Outcome Met (O.20) Yes [...] REG BLANKET UPPER BODY OR Serial ?# [id number] Equipment Setting FACTORY SETTING 43C Last Modified [...] ELMINATOR PS SECTOR Serial Number Lot Number [id number] Malted Milk Supervisor DEPUY DEPUY DEPUY Catalog # Size 48MM [...] HEAD SCREW COLLAR Serial Number Lot Number [id number] Malted Milk Supervisor DEPUY DEPUY DEPUY Catalog # Size KA [...] Signatures Signed By: Marcela Rachel 05/04/18 11:50 [facility] MAGR PACU Recordon MAGR PACU Record MAGR PACU Record Summary Primary Physician: MAICOL BELLO Finalized Date/Time: 05/04/18 12:07:10 Pt. Name: OANH TIM/Sex: 1960 FEMALE Med Rec #: [id number] Physician: MAICOL BELLO Financial #: [id number] Pt. Type: I Room/Bed: [facility] Admit/Disch: 05/04/18 05:50:21 - Institution: PACU Case Times MAGR Entry 1 In PACU I 05/04/18 11:07:00 Discharge from PACU 05/04/18 12:00:00 I Last Modified By: Mely Molina RN 05/04/18 12:07:07 Finalized By: Mely Molina RN Document Signatures Signed By: Mely Molina RN 05/04/18 12:07 [facility] MAGR Preoperative Recordon 0 05-04-2018 MAGR Preoperative Record MAGR Pre-Op Record Summary Primary Physician: MAICOL BELLO Finalized Date/Time: 05/04/18 11:47:50 Pt. Name: OANH TIM /Sex: 1960 FEMALE Med Rec #: [id number] Physician: MAICOL BELLO Financial #: [id number] Pt. Type: I Room/Bed: [facility]/1 Admit/Disch: 05/04/18 05:50:21 - Institution: Pre-Op Case [...] Signed By: Nyla Hylton RN 05/04/18 11:47 [facility] Nutrition Noteon 05-04-2018 Nutrition Note 57 year [...] status and appetite once advanced in diet. [facility] Progress Note - Nurseon 08 Protein mass [...] on: 05/04/2018 19:04 EDT] Hermila Shoemaker RN [facility] Protein mass conc Patient ambulates around room and approx 100 feet in marrero. tolerates well. Able to ambulate to br and void a small amount. [Electronically Signed on: 05/04/2018 19:06 EDT] Hermila Shoemaker RN [Verified on: 05/04/2018 19:06 EDT] Hermila Shoemaker RN [facility] Protein mass conc Spoke with Dr. Bello [...] on: 05/04/2018 15:17 EDT] Anabella Sauer RN [facility] XR Hip Complete Righton XR Hip Complete [...] RIGHT HIP. Mike Larson MD JOB #: [id number] bf Final Dictated by: Mike Larson MD Dictated DT/TM: 05/04/18 12:43 Signed (Electronic Signature): Mike Larson MD 05/04/18 1:12 pm Technologist: ANTOINETTE CAO [facility] Comment on above: Order Comment: on ca ll to pacu Progress Note - Nurseon Protein mass conc Spoke with pt and informed her to be here at 6am and NPO after MN, she verbalizes understanding. [Electronically Signed on: 05/03/2018 09:32 EDT] Regino Sanchez RN [Verified on: 05/03/2018 09:32 EDT] Regino Sanchez RN [facility] Coding Summaryon 04-21-2018 Coding Summary CODING DATE: 04/21/2018 [facility] STATUS: Home PAYOR: [employer] ADMIT [...] Nadja Tuttle Date Saved: 04/21/2018 06:16 pm [facility] Provider Orderson 04-17-2018 Protein mass conc [id number] OTGTIFF [facility] .Auto Diff 1on 04-16-2018 Auto Baso % 1.0 % Normal 0.2-2.0 [facility] Comment on above: Performed By: #### 6 [id number], [id number], [id number] #### [facility] (DEFAULT) [address] [place] [address] 14090 Auto [place] % 10 % Normal 1-12 [facility] Comment on above: Performed By: #### 6 420606, 2209794, 25776531 #### [facility] (DEFAULT) [address] [place] [address] 16633 Auto Neut % 52 % Normal 44-88 [facility] Comment on above: Performed By: #### 6 636146, 3908755, [id number] #### [facility] (DEFAULT) [address] [place] [address] 70489 Baso Abs# 0.1 x10 Normal 0.0-0.2 [facility] Comment on above: Performed By: #### 6 045489, 4167772, [id number] #### [facility] (DEFAULT) [address] [place] [address] 96365 Eos Abs# 0.4 x10 Normal 0.0-0.4 [facility] Comment on above: Performed By: #### 6 642542, 9997783, [id number] #### [facility] (DEFAULT) [address] [place] [address] 91726 Eosinophils/100 WBC (Bld) 5.4 % High 0.9-4.0 [facility] Comment on above: Performed By: #### 6 212675, 0764493, [id number] #### [facility] (DEFAULT) [address] [place] [address] Lymphocytes #/vol (Bld) 2.3 x10 Normal 1.3-2.9 [facility] Comment on above: Performed By: #### 6 570398, 0745853, [id number] #### [facility] (DEFAULT) [address] [place] [address] Lymphocytes/100 WBC (Bld) 32 % Normal 14-48 [facility] Comment on above: Performed By: #### 6 673780, 5779618, [id number] #### [facility] (DEFAULT) [address] [place] [address] [place] Abs# 0.7 x10 Normal 0.0-0.8 [facility] Comment on above: Performed By: #### 6 091373, 9544661, [id number] #### [facility] (DEFAULT) [address] [place] [address] Neut Abs# 3.8 x10 Normal 1.5-9.2 [facility] Comment on above: Performed By: #### 6 873531, 6791700, 87305746 #### [facility] (DEFAULT) [address] [place] [address] CBC w/ Auto Diffon 8 Erythrocyte distribution width Ratio (RBC) 12.9 % Normal 11.5-15.0 [facility] Comment on above: Performed By: #### 6 419431, 3715395, [id number] #### [facility] (DEFAULT) [address] [place] [address] Hematocrit Volume Fraction (Bld) 38.6 % Normal 33.7-40.4 [facility] Comment on above: Performed By: #### 6 333170, 1243518, [id number] #### [facility] (DEFAULT) [address] [place] [address] Hemoglobin mass conc (Bld) 13.2 g/dL Normal 11.3-15.9 [facility] Comment on above: Performed By: #### 6 002938, 1295069, [id number] #### [facility] (DEFAULT) [address] [place] [address] 21084 Man Diff? Auto Normal [facility] Comment on above: Performed By: #### 6 132667, 1739986, 12055640 #### [facility] (DEFAULT) [address] [place] [address] 51934 MCH Entitic mass (RBC) 35 pg High 24-34 [facility] Comment on above: Performed By: #### 6 720446, 3919996, 77731206 #### [facility] (DEFAULT) [address] [place] [address] MCHC mass conc (RBC) 34 g/dL Normal 26-37 [facility] Comment on above: Performed By: #### 6 920697, 6701843, 62947300 #### [facility] (DEFAULT) [address] [place] [address] MCV Entitic volume (RBC) 101 fL High 81-100 [facility] Comment on above: Performed By: #### 6 612606, 9863305, 64690732 #### [facility] (DEFAULT) [address] [place] [address] Platelet mean volume Entitic volume (Bld) 8.9 fL Normal 6.3-10.2 [facility] Comment on above: Performed By: #### 6 118455, 5570556, 68746175 #### [facility] (DEFAULT) [address] [place] [address] Platelets #/vol (Bld) 256 x10 Normal 138-427 [facility] Comment on above: Performed By: #### 6 302620, 7705662, 08645970 #### [facility] (DEFAULT) [address] [place] [address] RBC #/vol (Bld) 3.81 x10 Normal 3.70-5.30 [facility] Comment on above: Performed By: #### 6 128247, 6300240, 74321288 #### [facility] (DEFAULT) [address] [place] [address] WBC #/vol (Bld) 7.2 x10 [facility] Comment on above: Performed By: #### 6 582851, 3857781, 97520804 #### [facility] (DEFAULT) [address] [place] [address] CMP Standardon 04-16-2018 eGFR Non AA >60 [facility] Comment on above: Performed By: #### 6 018100, 4166406, 86018587 #### [facility] (DEFAULT) [address] [place] [address] eGFR AA >60 [facility] Comment on above: Result Comment: [employer] Sales Representative med Kidney disease could be indicated at eGFRs of less than 60 ml/min/1.73m2. Kidney Failure is indicated at less than 15 ml/min/1.73m2 Performed By: #### 6 917943, 0894832, [id number] #### [facility] (DEFAULT) [address] [place] [address] Albumin mass conc 4.1 g/dL Normal 3.5-5.0 [facility] Comment on above: Performed By: #### 6 724256, 5648266, 75518214 #### [facility] (DEFAULT) [address] [place] [address] Albumin/Globulin mass ratio 1.5 {ratio} Normal 1.4-2.6 [facility] Comment on above: Performed By: #### 6 815795, 3629556, 93820202 #### [facility] (DEFAULT) [address] [place] [address] Alk Phos 46 IU/L Normal 32-91 [facility] Comment on above: Performed By: #### 6 776267, 7425286, 46017973 #### [facility] (DEFAULT) [address] [place] [address] ALT/SGPT 17.0 IU/L Normal 14.0-54.0 [facility] Comment on above: Performed By: #### 6 852730, 8665507, 92495626 #### [facility] (DEFAULT) [address] [place] [address] Anion gap molar conc 11.0 mmol/L Normal 5.0-19.0 [facility] Comment on above: Performed By: #### 6 504758, 3471652, 76199925 #### [facility] (DEFAULT) [address] [place] [address] AST/SGOT 16 IU/L Normal 15-41 [facility] Comment on above: Performed By: #### 6 994143, 1382184, 21746591 #### [facility] (DEFAULT) [address] [place] [address] Bili Total 0.7 mg/dL Normal 0.3-1.2 [facility] Comment on above: Performed By: #### 6 718512, 8549781, 62077515 #### [facility] (DEFAULT) [address] [place] [address] Calcium mass conc 9.1 mg/dL Normal 8.9-10.3 [facility] Comment on above: Performed By: #### 6 143218, 4771802, 69178221 #### [facility] (DEFAULT) [address] [place] [address] Chloride molar conc 99 mmol/L Low 101-111 [facility] Comment on above: Performed By: #### 6 324252, 7989450, 31276847 #### [facility] (DEFAULT) [address] [place] [address] CO2 molar conc 27 mmol/L Normal 21-32 [facility] Comment on above: Performed By: #### 6 168383, 0758079, 00530811 #### [facility] (DEFAULT) [address] [place] [address] Creatinine mass conc 0.61 mg/dL Normal 0.60-1.30 [facility] Comment on above: Performed By: #### 6 825784, 8592741, 03336914 #### [facility] (DEFAULT) [address] [place] [address] 05988 Globulin mass conc (S) 2.7 g/dL Normal 1.5-4.3 [facility] Comment on above: Performed By: #### 6 478218, 9285955, 85887013 #### [facility] (DEFAULT) [address] [place] [address] 38756 Glucose mass conc 90.0 mg/dL Normal 74.0-118.0 [facility] Comment on above: Performed By: #### 6 996526, 0003054, 10079887 #### [facility] (DEFAULT) [address] [place] [address] 48868 Osmolality 264 mOsm/L [facility] Comment on above: Performed By: #### 6 377848, 7965645, 89371037 #### [facility] (DEFAULT) [address] [place] [address] 33756 Potassium molar conc 4.4 mmol/L Normal 3.6-5.1 [facility] Comment on above: Performed By: #### 6 212346, 1326520, 85893456 #### [facility] (DEFAULT) [address] [place] [address] 30360 Protein mass conc 6.8 g/dL Normal 6.5-8.1 [facility] Comment on above: Performed By: #### 6 182445, 3223532, 74851857 #### [facility] (DEFAULT) [address] [place] [address] 13722 Sodium molar conc 133.0 mmol/L Low 136.0-144.0 [facility] Comment on above: Performed By: #### 6 233004, 4835082, 66360798 #### [facility] (DEFAULT) [address] [place] [address] 54860 Urea nitrogen mass conc 8 mg/dL Normal 8-26 [facility] Comment on above: Performed By: #### 6 267860, 6383817, 50303164 #### [facility] (DEFAULT) [address] [place] [address] 18400 Urea nitrogen/Creatinine mass ratio 13.0 mg/mg Normal 4.6-16.2 [facility] Comment on above: Performed By: #### 6 866842, 2432624, 43150809 #### [facility] (DEFAULT) [address] [place] [address] 64379 PT/PTTon 04-16-2018 aPTT Coag time (Bld) 27 second(s) Normal 25-35 [facility] Comment on above: Performed By: #### 6 064903, 8496866, 71734453 #### [facility] (DEFAULT) [address] [place] [address] 19783 INR Coag RelTime (PPP) 1.01 {INR} Normal 0.91-1.11 [facility] Comment on above: Performed By: #### 6 767630, 5095536, 16395637 #### [facility] (DEFAULT) [address] [place] [address] 15569 Prothrombin time (PT) Coag time (PPP) 10.5 second(s) Normal 9.7-11.8 [facility] Comment on above: Performed By: #### 6 278412, 4142749, 37334285 #### [facility] (DEFAULT) [address] [place] [address] Progress Note - Nurseon 04-[address] Lim reviews pt medical clearance and ok pt for surgery, orders BMP on day of surgery. [Electronically Signed on: 04/16/2018 14:18 EDT] Regino Sanchez RN [Verified on: 04/16/2018 14:18 EDT] Regino Sanchez RN Normal [facility] UA w Culture if Ind Standard on 04-16-2018 Breakpoint UA Normal [facility] Comment on above: Performed By: #### 6 564409, 2510171, 52841786 #### [facility] (DEFAULT) [address] [place] [address] 52445 Color Nom (U) YELLOW [facility] Comment on above: Performed By: #### 6 300122, 1807218, 45345228 #### [facility] (DEFAULT) [address] [place] [address] 69122 Culture? Not Indicated [facility] Comment on above: Performed By: #### 6 035094, 4398307, 44631446 #### [facility] (DEFAULT) [address] [place] [address] 33849 Glucose mass conc (U) Negative [facility] Comment on above: Performed By: #### 6 923667, 2589858, 84292153 #### [facility] (DEFAULT) [address] [place] [address] 72320 Ketones Ql (U) Negative [facility] Comment on above: Performed By: #### 6 968095, 7159554, 59310685 #### [facility] (DEFAULT) [address] [place] [address] 53296 Micro? Not Indicated [facility] Comment on above: Performed By: #### 6 851915, 0621974, 86468624 #### [facility] (DEFAULT) [address] [place] [address] 81725 UA Bilirubin Negative Normal [facility] Comment on above: Performed By: #### 6 027174, 3207750, 88520266 #### [facility] (DEFAULT) [address] [place] [address] 03482 UA Blood Negative Normal NEGATIVE [facility] Comment on above: Performed By: #### 6 706624, 9780845, 73719978 #### [facility] (DEFAULT) [address] [place] [address] 39538 UA Clarity CLEAR Normal CLEAR [facility] Comment on above: Performed By: #### 6 291076, 8545259, 51366538 #### [facility] (DEFAULT) [address] [place] [address] 48442 UA Leuk Est Negative Normal NEGATIVE [facility] Comment on above: Performed By: #### 6 481947, 3784672, 58023605 #### [facility] (DEFAULT) [address] [place] [address] 84031 UA Nitrite Negative Normal NEGATIVE [facility] Comment on above: Performed By: #### 6 680475, 0332711, 86723004 #### [facility] (DEFAULT) [address] [place] [address] 98444 UA pH 6.0 5-8 [facility] Comment on above: Performed By: #### 6 376765, 4398099, 71175263 #### [facility] (DEFAULT) [address] [place] [address] 52278 UA Protein Negative Normal NEGATIVE [facility] Comment on above: Performed By: #### 6 790977, 2464503, 35458768 #### [facility] (DEFAULT) [address] [place] [address] 23085 UA Spec Grav <=1.005 1.001-1.035 [facility] Comment on above: Performed By: #### 6 605598, 3752458, 94310458 #### [facility] (DEFAULT) [address] [place] [address] 34370 UA Urobilinogen 0.2 mg/dL Normal 0.2-1.0 [facility] Comment on above: Performed By: #### 6 667968, 6670407, 20089279 #### [facility] (DEFAULT) [address] [place] [address] 25690 Urine Source Clean Catch [facility] Comment on above: Performed By: #### 6 069090, 4097935, 90590715 #### [facility] (DEFAULT) [address] [place] [address] 58974 Provider Orderson 03-09-2018 Protein mass conc [id number]#1.00 OTGTIFF [facility] Coding Summaryon 03-05-2018 Coding Summary CODING DATE: 03/05/2018 FINAL [facility] STATUS: Home PAYOR: [facility] APC DESCRIPTION 5521 Level 1 Imaging without Contrast ADMIT DX: REASON FOR VISIT DX: Z01.818 Encounter for other preprocedural examination FINAL DX: PRINCIPAL: Z01.818 Encounter for other preprocedural examination SECONDARY: M16.0 Bilateral primary osteoarthritis of hip 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 Carbonator spoke to Мария at Dr Bello and she states that she will make sure that family doctor is aware of this. [Electronically Signed on: 03/01/2018 13:38 EDT] Regino Sanchez RN [Verified on: 03/01/2018 13:38 EDT] Regino Sanchez RN [facility] .Auto Diff 1on 02-27-2018 Auto Baso % 0.8 % Normal 0.2-2.0 [facility] Comment on above: Performed By: #### 6 598423, 0366990, [id number] #### [facility] (DEFAULT) [address] [place] [address] Auto [place] % 12 % Normal 1-12 [facility] Comment on above: Performed By: #### 6 608011, 2979099, 22150750 #### [facility] (DEFAULT) [address] [place] [address] Auto Neut % 59 % Normal 44-88 [facility] Comment on above: Performed By: #### 6 538772, 5732261, 25545197 #### [facility] (DEFAULT) [address] [place] [address] Baso Abs# 0.0 x10 Normal 0.0-0.2 [facility] Comment on above: Performed By: #### 6 463893, 3639551, 31105541 #### [facility] (DEFAULT) [address] [place] [address] Eos Abs# 0.2 x10 Normal 0.0-0.4 [facility] Comment on above: Performed By: #### 6 726400, 6626041, 22199289 #### [facility] (DEFAULT) [address] [place] [address] Eosinophils/100 WBC (Bld) 2.6 % Normal 0.9-4.0 [facility] Comment on above: Performed By: #### 6 695828, 1609509, 43318704 #### [facility] (DEFAULT) [address] [place] [address] Lymphocytes #/vol (Bld) 1.6 x10 Normal 1.3-2.9 [facility] Comment on above: Performed By: #### 6 199888, 5027835, 40398916 #### [facility] (DEFAULT) [address] [place] [address] Lymphocytes/100 WBC (Bld) 26 % Normal 14-48 [facility] Comment on above: Performed By: #### 6 657973, 1820018, 80722939 #### [facility] (DEFAULT) [address] [place] [address] [place] Abs# 0.7 x10 Normal 0.0-0.8 [facility] Comment on above: Performed By: #### 6 707887, 7500108, 34364869 #### [facility] (DEFAULT) [address] [place] [address] Neut Abs# 3.6 x10 Normal 1.5-9.2 [facility] Comment on above: Performed By: #### 6 731073, 2121870, 21270360 #### [facility] (DEFAULT) [address] [place] [address] BMP Standardon 02-27-2018 eGFR AA >60 [facility] Comment on above: Result Comment: [employer] Sales Representative med Kidney disease could be indicated at eGFRs of less than 60 ml/min/1.73m2. Kidney Failure is indicated at less than 15 ml/min/1.73m2 Performed By: #### 1 [id number] #### [facility] (DEFAULT) [address] [place] [address] 24350 eGFR Non AA >60 [facility] Comment on above: Performed By: #### 1 [id number] #### [facility] (DEFAULT) [address] [place] [address] 22290 Anion gap molar conc 12.0 mmol/L Normal 5.0-19.0 [facility] Comment on above: Performed By: #### 1 [id number] #### [facility] (DEFAULT) [address] [place] [address] 20384 Calcium mass conc 9.1 mg/dL Normal 8.9-10.3 [facility] Comment on above: Performed By: #### 1 [id number] #### [facility] (DEFAULT) [address] [place] [address] 83337 Chloride molar conc 87 mmol/L Low 101-111 [facility] Comment on above: Performed By: #### 1 [id number] #### [facility] (DEFAULT) [address] [place] [address] 90092 CO2 molar conc 27 mmol/L Normal 21-32 [facility] Comment on above: Performed By: #### 1 [id number] #### [facility] (DEFAULT) [address] [place] [address] 95819 Creatinine mass conc 0.52 mg/dL Low 0.60-1.30 [facility] Comment on above: Performed By: #### 1 [id number] #### [facility] (DEFAULT) [address] [place] [address] 24151 Glucose mass conc 91.0 mg/dL Normal 74.0-118.0 [facility] Comment on above: Performed By: #### 1 [id number] #### [facility] (DEFAULT) [address] [place] [address] 38960 Osmolality 245 mOsm/L [facility] Comment on above: Performed By: #### 1 [id number] #### [facility] (DEFAULT) [address] [place] [address] 06436 Potassium molar conc 3.2 mmol/L Low 3.6-5.1 [facility] Comment on above: Performed By: #### 1 [id number] #### [facility] (DEFAULT) [address] [place] [address] Sodium molar conc 123.0 mmol/L Low 136.0-144.0 [facility] Comment on above: Performed By: #### 1 [id number] #### [facility] (DEFAULT) [address] [place] [address] Urea nitrogen mass conc 7 mg/dL Low 8-26 [facility] Comment on above: Performed By: #### 1 [id number] #### [facility] (DEFAULT) [address] [place] [address] Urea nitrogen/Creatinine mass ratio 13.0 mg/mg Normal 4.6-16.2 [facility] Comment on above: Performed By: #### 1 [id number] #### [facility] (DEFAULT) [address] [place] [address] CBC w/ Auto Diffon 8 Erythrocyte distribution width Ratio (RBC) 12.6 % Normal 11.5-15.0 [facility] Comment on above: Performed By: #### 6 461937, 4708694, 87222779 #### [facility] (DEFAULT) [address] [place] [address] Hematocrit Volume Fraction (Bld) 38.7 % Normal 33.7-40.4 [facility] Comment on above: Performed By: #### 6 419335, 3549793, 97587571 #### [facility] (DEFAULT) [address] [place] [address] Hemoglobin mass conc (Bld) 13.8 g/dL Normal 11.3-15.9 [facility] Comment on above: Performed By: #### 6 802987, 6274826, 79743512 #### [facility] (DEFAULT) [address] [place] [address] Man Diff? Auto Normal [facility] Comment on above: Performed By: #### 6 881695, 8227630, 87698308 #### [facility] (DEFAULT) [address] [place] [address] 45617 MCH Entitic mass (RBC) 34 pg Normal 24-34 [facility] Comment on above: Performed By: #### 6 823932, 6466969, 83249700 #### [facility] (DEFAULT) [address] [place] [address] 16270 MCHC mass conc (RBC) 36 g/dL Normal 26-37 [facility] Comment on above: Performed By: #### 6 181067, 6711015, 34253385 #### [facility] (DEFAULT) [address] [place] [address] 21351 MCV Entitic volume (RBC) 96 fL Normal 81-100 [facility] Comment on above: Performed By: #### 6 511753, 3446958, 41225523 #### [facility] (DEFAULT) [address] [place] [address] Platelet mean volume Entitic volume (Bld) 8.5 fL Normal 6.3-10.2 [facility] Comment on above: Performed By: #### 6 749503, 2189840, 59048366 #### [facility] (DEFAULT) [address] [place] [address] 41472 Platelets #/vol (Bld) 362 x10 Normal 138-427 [facility] Comment on above: Performed By: #### 6 660552, 0813384, 28333997 #### [facility] (DEFAULT) [address] [place] [address] 44057 RBC #/vol (Bld) 4.04 x10 Normal 3.70-5.30 [facility] Comment on above: Performed By: #### 6 227595, 5127074, 92695829 #### [facility] (DEFAULT) [address] [place] [address] 01439 WBC #/vol (Bld) 6.1 x10 [facility] Comment on above: Performed By: #### 6 214515, 5560127, [id number] #### [facility] (DEFAULT) [address] [place] [address] 41937 PT/PTTon 02-27-2018 aPTT Coag time (Bld) 30 second(s) Normal 25-35 [facility] Comment on above: Performed By: #### 6 435066, 9070933, 40374671 #### [facility] (DEFAULT) [address] [place] [address] INR Coag RelTime (PPP) 1.02 {INR} Normal 0.91-1.11 [facility] [facility] Comment on above: Performed By: #### 6 [id number], [id number], [id number] #### [facility] (DEFAULT) [address] [place] [address] Prothrombin time (PT) Coag time (PPP) 10.6 second(s) Normal 9.7-11.8 [facility] Comment on above: Performed By: #### 6 [id number], [id number] #### [facility] (DEFAULT) [address] [place] [address] UA [id number] 02-27-2018 RBC #/vol (U) None Seen [facility] Comment on above: Order Comment: Urina lysis Microscopic order added on by [employer] Expert Rules system. Performed By: #### 1 [id number], [id number] #### [facility] (DEFAULT) [address] [place] [address] UA Bacteria Trace [facility] Comment on above: Order Comment: Urina lysis Microscopic order added on by [employer] Rules system. Performed By: #### 1 [id number], [id number] #### [facility] (DEFAULT) [address] [place] [address] UA Squam Epi Moderate Normal [facility] Comment on above: Order Comment: Urina lysis Microscopic order added on by [employer] Rules system. Performed By: #### 1 [id number], [id number] #### [facility] (DEFAULT) [address] [place] [address] UA WBC 0-2 [facility] Comment on above: Order Comment: Urina lysis Microscopic order added on by [employer] Rules system. Performed By: #### 1 [id number], [id number] #### [facility] (DEFAULT) [address] [place] [address] UA w Culture if Ind Standard on 02-27-2018 Breakpoint UA Normal [facility] Comment on above: Performed By: #### 1 [id number], [id number] #### [facility] (DEFAULT) [address] [place] [address]21 Color Nom (U) YELLOW [facility] Comment on above: Performed By: #### 1 [id number], [id number] #### [facility] (DEFAULT) [address] [place] [address] 14000 Culture? Not Indicated [facility] Comment on above: Performed By: #### 1 [id number], [id number] #### [facility] (DEFAULT) [address] [place] [address] 31496 Glucose mass conc (U) Negative [facility] Comment on above: Performed By: #### 1 [id number], [id number] #### [facility] (DEFAULT) [address] [place] [address] 07110 Ketones Ql (U) Negative [facility] Comment on above: Performed By: #### 1 [id number], [id number] #### [facility] (DEFAULT) [address] [place] [address] 68561 Micro? Indicated [facility] Comment on above: Performed By: #### 1 [id number], [id number] #### [facility] (DEFAULT) [address] [place] [address] 90189 UA Bilirubin Negative Normal [facility] Comment on above: Performed By: #### 1 [id number], [id number] #### [facility] (DEFAULT) [address] [place] [address] 42559 UA Blood Negative Normal NEGATIVE [facility] Comment on above: Performed By: #### 1 [id number], [id number] #### [facility] (DEFAULT) [address] [place] [address] 82350 UA Clarity CLEAR Normal CLEAR [facility] Comment on above: Performed By: #### 1 [id number], [id number] #### [facility] (DEFAULT) [address] [place] [address] 97614 UA Leuk Est TRACE Abnormal NEGATIVE [facility] Comment on above: Performed By: #### 1 [id number], [id number] #### [facility] (DEFAULT) [address] [place] [address] 20832 UA Nitrite Negative Normal NEGATIVE [facility] Comment on above: Performed By: #### 1 [id number], [id number] #### [facility] (DEFAULT) [address] [place] [address] 16721 UA pH 6.5 5-8 [facility] Comment on above: Performed By: #### 1 [id number], [id number] #### [facility] (DEFAULT) [address] [place] [address] 70143 UA Protein Negative Normal NEGATIVE [facility] Comment on above: Performed By: #### 1 [id number], [id number] #### [facility] (DEFAULT) [address] [place] [address] 41091 UA Spec Grav 1.010 1.001-1.035 [facility] Comment on above: Performed By: #### 1 [id number], [id number] #### [facility] (DEFAULT) [address] [place] [address] 26578 UA Urobilinogen 0.2 mg/dL Normal 0.2-1.0 [facility] Comment on above: Performed By: #### 1 [id number], [id number] #### [facility] (DEFAULT) [address] [place] [address] 83782 Urine Source Clean Catch Normal [facility] Comment on above: Performed By: #### 1 [id number], [id number] #### [facility] (DEFAULT) [address] [place] [address] 72760 XR Chest 2 Viewson 8 XR Chest [...] THE CHEST. Mike Larson MD JOB #: [id number] ul Final Dictated by: Mike Larson MD Dictated DT/TM: 02/27/18 2:53 Signed (Electronic Signature): Mike Larson MD 02/27/18 3:58 pm Technologist: NU CAO Normal [facility] Encounters Encounter Date Encounter Type Care [...] End: 01-08-2019 Evaluation and management of inpatient [facility] Facility:[facility] Start: 04-17-2018 End: 04-17-2018 Patient encounter procedure [facility] Facility:[facility] Start: 02-27-2018 End: 02-28-2018 Patient encounter procedure MAICOL BELLO Facility:[facility] Payers Date Payer Category Payer Self-pay [employer] 1960 Unknown [id number] 2.16.84 [id number] 1960 Unknown [id number] 2.16.84 [id number] 1960 Unknown [id number] 2.16.84 0.1.340077.3.579.2.718 1960 Unknown [id number] 2.16.84 0.1.258114.3.579.2.718 1960 Unknown [id number] 2.16.84 0.1.968888.3.579.2.593 1960 Unknown [id number] 2.16.84 0.1.886401.3.579.2.593 1960 Unknown [id number] 2.16.84 0.1.098636.3.579.2.593 1960 Unknown [id number] 2.16.84 0.1.689886.3.579.2.593 1960 Unknown [id number] 2.16.84 0.1.777594.3.579.2.593 1960 Unknown [id number] 2.16.84 0.1.617639.3.579.2.1259 1960 Unknown [id number] 2.16.84 0.1.529209.3.579.2.1259 1959 Unknown [id number] Summary Purpose Family History No Family History Records FoundNo Family History Records FoundNo Family History Records Found Advance Directives No Advanced Directives Records FoundNo Advanced Directives Records FoundNo Advanced Directives Records Found Hospital [facility] Clinical Discharge Summary PERSON INFORMATION Name OANH TIM Age 57 Years 60 Sex FEMALE Language Tamazight PCP ELMO BURTON Marital Status Med Service Surgery Acct# Arrival 05/04/18 05:50:21 Visit Reason SURGERY - RIGHT TOTAL HIP Acuity [facility] Address: [address] [place] [address] [address] [facility] [id number] Comment: PROVIDER INFORMATION VITALS INFORMATION Vital Sign [...] section and content) DATE CREATED AUTHOR 01/09/2019 [facility] DATE CREATED AUTHOR AUTHOR'S ORGANIZ ATION 11/19/2022 [facility] DATE CREATED AUTHOR AUTHOR'S ORGANIZ ATION 12/10/2023 [facility] FOR RECORDS PERTAINING TO PATIENTS WHO [...] BE BASED ON THE PRIMARY CLINICAL RECORDS. [facility] [employer] [facility]. provides no warranty or guarantee of the accuracy or completeness of information in this document.
[2024-01-16 10:35] VITALS: BP 124/82; PULSE 75; TEMP 35.9; O2SAT 98; BMI 21.0
[2024-01-16] MEDS: LACTATED RINGER'S SOLUTION 1,000 ML 50 ML IV ×2 (10:45→14:09)
[2024-01-16 14:43] VITALS: BP 92/61; PULSE 71; TEMP 37.1; O2SAT 100
[2024-01-16 14:58] VITALS: BP 141/68; PULSE 66; O2SAT 98
[2024-01-16 15:30] VITALS: BP 141/80; PULSE 61; O2SAT 98
--- NOTE | 2024-01-16 16:30 | PM.GSPRC ---
Date of procedure: 01/16/24 Indications for Procedure: screening colonoscopy Pre-op diagnosis: screening colonoscopy Post-op diagnosis: same as pre-op Procedure: screening colonoscopy Previous colonoscopy: never PROCEDURE: The patient was given IV conscious sedation.? The patient's SPO2 remained above 90% throughout the procedure. The colonoscope was inserted per rectum and advanced under direct vision to the cecum without difficulty.? The prep was good Findings: Terminal ileum os: normal Cecum/Ascending colon: normal Transverse colon: normal Descending/Sigmoid colon: normal Rectum/Anus: examined in normal and retroflexed positions and was normal Withdrawal Time was (minutes): 10 The colon was decompressed and the scope was removed.? The patient tolerated the procedure well. Recommendations/Plan: 1.? Lifestyle and dietary modifications as discussed 2.? F/U c-scope in 10 years 3.? Discussed with the family Findings: normal Anesthesia: MAC Surgeon: Marcelo Alvares Procedure Summary: screening colonoscopy Estimated blood loss (mL): 0 Complications: No Pathology: none sent Condition: stable Disposition: PACU
== END 2024-01-16 15:30 | disposition home or self-care (01) ==
PROVIDERS: PCP Internal Medicine; Visit Provider Surgery
PROC: (CPT 812; principal; 2024-01-16 11:05)
DX: Z12.11 Encounter for screening for malignant neoplasm of colon (principal); F17.210 Nicotine dependence, cigarettes, uncomplicated; Z96.641 Presence of right artificial hip joint; M19.90 Unspecified osteoarthritis, unspecified site; I10 Essential (primary) hypertension; F32.A Depression, unspecified
CPT/HCPCS: 45378; J2704

== ENCOUNTER 2024-01-22 21:12 | Outpatient (REF) | payer BC, SELFPAY ==
--- OUTSIDE RECORDS SUMMARY | 2024-01-22 21:16 | XMS_ITS | CCD ---
Author Organization [facility] Care Team Providers Care Engine Repairer Production Name Role Phone STEPNUPUR MAICOL C Admitting [...] spec) Not detected Normal NOT DETECTED [facility] Comment on above: Result Comment: When [...] for this test is supported by the [place] of Health and Human Service's declaration that [...] no longer be used). Previously reported as: [id number] On 11/14/2022 17:33 By RC01 Performed By: #### [facility] #### [facility] [address] [address] [address] Pito Johnson Result Comment: This test is not yet approved or cleared by the [place] FDA. When there are no FDA-approved or cleared tests available, and other criteria are met, FDA can make tests available under an emergency access mechanism called an Emergency Use Authorization (EUA). The EUA for this test is supported by the [place] of Health and Human Service's (HHS's) declaration [...] SARS-CoV-2. INFLUENZA A AND B AGon 11-14 [facility]OW Normal [facility] Comment on above: Result Comment: Nega tive for Flu A protein angiten. Infection due to Flu A cannot be ruled out. Flu A angiten in the sample may be below the detection limit of the test. Performed By: #### I NFLUAB #### [facility] [address] [place] [address] Dr. Pito Johnson [facility] Normal [facility] Comment on above: Result Comment: Nega tive for Flu B protein antigen. Infection due to Flu B cannot be ruled out. Flu B antigen in the sample may be below the detection limit of the test. Performed By: #### I NFLUAB #### [facility] [address] [address] [address] Pito Johnson INFLUENZA A AG Negative Normal NEGATIVE SEE COMMENT [facility] Comment on above: Performed By: #### I NFLUAB #### [facility] [address] [address] [address] Pito Johnson INFLUENZA B AG Negative Normal NEGATIVE SEE COMMENT [facility] Comment on above: Performed By: #### I NFLUAB #### [facility] [address] [address] [address] Pito Johnson PROF CHEM 8 (BAS METB)on Anion gap [Moles/Vol] 10.2 mmol/L Normal [facility] Comment on above: Performed By: #### B MP #### [facility] [address] [address] [address] Pito Johnson Calcium [Mass/Vol] 9.2 mg/dL Normal 8.5-10.1 [facility] Comment on above: Performed By: #### B MP #### [facility] [address] [address] [address] Pito Johnson Chloride [Moles/Vol] 96 mmol/L Critically low 98-107 [facility] Comment on above: Performed By: #### B MP #### [facility] [address] [address] [address] Pito Johnson CO2 [Moles/Vol] 31.1 mmol/L Normal 21.0-32.0 [facility] Comment on above: Performed By: #### B MP #### [facility] [address] [address] [address] Pito Johnson Creatinine [Mass/Vol] 0.65 mg/dL Normal 0.55-1.02 [facility] Comment on above: Performed By: #### B MP #### [facility] [address] [address] [address] Pito Johnson EGFR-AF LUXEMBOURGER >60 Normal >=60 [facility] Comment on above: Performed By: #### B MP #### [facility] [address] [address] [address] Pito Johnson EGFR-NON AF LUXEMBOURGER >60 Normal >=60 [facility] Comment on above: Performed By: #### B MP #### [facility] [address] [address] [address] Pito Johnson Glucose [Mass/Vol] 102 mg/dL Normal 74-106 [facility] Comment on above: Performed By: #### B MP #### [facility] [address] [address] [address] Pito Johnson Potassium [Moles/Vol] 4.3 mmol/L Normal 3.5-5.1 [facility] Comment on above: Performed By: #### B MP #### [facility] [address] [place] [address] Dr. Pito Johnson Sodium [Moles/Vol] 133 mmol/L Critically low 136-145 [facility] Comment on above: Performed By: #### B MP #### [facility] [address] [place] [address] Dr. Pito Johnson Urea nitrogen [Mass/Vol] 12.0 mg/dL Normal 7.0-18.0 [facility] Comment on above: Performed By: #### B MP #### [facility] [address] [place] [address] Dr. Pito Johnson Urea nitrogen/Creatinine [Mass ratio] 18.5 mg/mg Normal [facility] Comment on above: Performed By: #### B MP #### [facility] [address] [place] [address] Dr. Pito Johnson CBC AUTO DIFFon 10-20-2022 BASO # 0.1 103/ul Normal 0.0-0.1 [facility] Comment on above: Performed By: #### C BC #### [facility] [address] [place] [address] Dr. Pito Johnson Basophils/100 WBC (Bld) 0.8 % Normal 0.2-2.0 [facility] Comment on above: Performed By: #### C BC #### [facility] [address] [place] [address] Dr. Pito Johnson EO # 0.3 103/ul Normal 0.0-0.7 [facility] Comment on above: Performed By: #### C BC #### [facility] [address] [place] [address] Dr. Pito Johnson Eosinophils/100 WBC (Bld) 3.4 % Normal 0.9-7.0 [facility] Comment on above: Performed By: #### C BC #### [facility] [address] [place] [address] Dr. Pito Johnson Erythrocyte distribution width (RBC) [Ratio] 12.0 % Normal 11.0-15.0 [facility] Comment on above: Performed By: #### C BC #### [facility] [address] [place] [address] Dr. Pito Johnson Hematocrit (Bld) [Volume fraction] 39.5 % Normal 36.0-48.0 [facility] Comment on above: Performed By: #### C BC #### [facility] [address] [place] [address] Dr. Pito Johnson Hemoglobin (Bld) [Mass/Vol] 14.0 g/dL Normal 12.0-16.0 [facility] Comment on above: Performed By: #### C BC #### [facility] [address] [place] [address] Dr. Pito Johnson IG # 0.03 10e3/ul Normal 0.00-0.03 [facility] Comment on above: Performed By: #### C BC #### [facility] [address] [place] [address] Dr. Pito Johnson IG % 0.3 % Normal 0.0-0.5 [facility] Comment on above: Performed By: #### C BC #### [facility] [address] [place] [address] Dr. Pito Johnson LYMPH # 2.2 103/ul Normal 1.2-3.8 [facility] Comment on above: Performed By: #### C BC #### [facility] [address] [place] [address] Dr. Pito Johnson Lymphocytes/100 WBC (Bld) 24.9 % Normal 20.5-60.0 [facility] Comment on above: Performed By: #### C BC #### [facility] [address] [place] [address] Dr. Pito Johnson MANUAL DIFF REQ NO Normal [facility] Comment on above: Performed By: #### C BC #### [facility] [address] [place] [address] Dr. Pito Johnson MCH (RBC) [Entitic mass] 34.1 pg Critically high 26.7-34.0 [facility] Comment on above: Performed By: #### C BC #### [facility] [address] [place] [address] Dr. Pito Johnson MCHC (RBC) [Mass/Vol] 35.4 g/dL Critically high 29.9-35.2 [facility] Comment on above: Performed By: #### C BC #### [facility] [address] [place] [address] Dr. Pito Johnson MCV (RBC) [Entitic vol] 96.1 fL Normal 81.0-99.0 [facility] Comment on above: Performed By: #### C BC #### [facility] [address] [place] [address] Dr. Pito Johnson MONO # 0.9 103/ul Critically high 0.3-0.8 [facility] Comment on above: Performed By: #### C BC #### [facility] [address] [place] [address] Dr. Pito Johnson Monocytes/100 WBC (Bld) 10.0 % Normal 1.7-12.0 [facility] Comment on above: Performed By: #### C BC #### [facility] [address] [place] [address] Dr. Pito Johnson NEUT # 5.4 103/ul Normal 1.4-6.5 [facility] Comment on above: Performed By: #### C BC #### [facility] [address] [place] [address] Dr. Pito Johnson Neutrophils/100 WBC (Bld) 60.6 % Normal 43.0-75.0 [facility] Comment on above: Performed By: #### C BC #### [facility] [address] [address] [address] Pito Johnson Platelet mean volume (Bld) [Entitic vol] 8.7 fL Critically low 9.5-13.5 [facility] Comment on above: Performed By: #### C BC #### [facility] [address] [address] [address] Pito Johnson PLT 376 103/ul Normal 150-450 [facility] Comment on above: Performed By: #### C BC #### [facility] [address] [address] [address] Pito Johnson RBC 4.11 106/ul Critically low 4.20-5.40 [facility] Comment on above: Performed By: #### C BC #### [facility] [address] [address] [address] Pito Johnson WBC 8.9 103/ul Normal 4.0-11.0 [facility] Comment on above: Performed By: #### C BC #### [facility] [address] [address] [address] Pito Johnson PROF CHEM 8 (BAS METB)on Anion gap [Moles/Vol] 12.0 mmol/L Normal [facility] Comment on above: Performed By: #### B MP #### [facility] [address] [place] [address] Dr. Pito Johnson Calcium [Mass/Vol] 9.6 mg/dL Normal 8.5-10.1 [facility] Comment on above: Performed By: #### B MP #### [facility] [address] [place] [address] Dr. Pito Johnson Chloride [Moles/Vol] 90 mmol/L Critically low 98-107 [facility] Comment on above: Performed By: #### B MP #### [facility] [address] [place] [address] Dr. Pito Johnson CO2 [Moles/Vol] 30.1 mmol/L Normal 21.0-32.0 [facility] Comment on above: Performed By: #### B MP #### [facility] [address] [place], [place] [address] Dr. Pito Johnson Creatinine [Mass/Vol] 0.69 mg/dL Normal 0.55-1.02 [facility] Comment on above: Performed By: #### B MP #### [facility] [address] [place] [address] Dr. Pito Johnson EGFR-AF LUXEMBOURGER >60 Normal >=60 [facility] Comment on above: Performed By: #### B MP #### [facility] [address] [place] [address] Dr. Pito Johnson EGFR-NON AF LUXEMBOURGER >60 Normal >=60 [facility] Comment on above: Performed By: #### B MP #### [facility] [address] [place] [address] Dr. Pito Johnson Glucose [Mass/Vol] 105 mg/dL Normal 74-106 [facility] Comment on above: Performed By: #### B MP #### [facility] [address] [place] [address] Dr. Pito Johnson Potassium [Moles/Vol] 4.1 mmol/L Normal 3.5-5.1 [facility] Comment on above: Performed By: #### B MP #### [facility] [address] [place] [address] Dr. Pito Johnson Sodium [Moles/Vol] 128 mmol/L Critically low 136-145 Th [facility] Comment on above: Performed By: #### B MP #### [facility] [address] [place] [address] Dr. Pito Johnson Urea nitrogen [Mass/Vol] 19.0 mg/dL Critically high 7.0-18.0 [facility] Comment on above: Performed By: #### B MP #### [facility] [address] [place] [address] Dr. Pito Johnson Urea nitrogen/Creatinine [Mass ratio] 27.5 mg/mg Normal [facility] Comment on above: Performed By: #### B MP #### [facility] [address] [place] [address] Dr. Pito Johnson MG MAMM SCREEN 3D MINERVA CADon 11-22-2021 MG MAMM SCREEN 3D MINERVA CAD Patient: OANH TIM Exam Date: 11/22/2021 : 1960 Gender:F Ordering : SHAIKH Robyn MEADOWS . Admission #: [id number] Family : Order #: [id number] CLICK HERE TO VIEW EXAM RADIOLOGY REPORT PROCEDURE: MAMMOGRAM SCREENING 3D BILATERAL CAD COMPARISON: None. INDICATIONS: Screening mammography Calculator Name NCI Breast Cancer Risk Assessment Tool 5 Year Breast Cancer Risk 1.80% Lifetime Breast Cancer Risk 8.60% Personal Breast Cancer No Personal Ovarian Cancer No Treatments None Family Cancers Grandfather-maternal with stomach cancer at age 75. LOCATION: [facility] BREAST COMPOSITION: Extremely dense, which lowers [...] Jessica M.D. on 11/23/2021 at 11:49 Normal [facility] Provider Orderson 05-21-2018 Protein mass conc [id number]#1.00 [facility] - Nurseon 05-[address] Lennon's office notified of Na 123 on 05/04/18 [Electronically Signed on: 05/14/2018 14:12 EDT] Krupa Walker RN [Verified on: 05/14/2018 14:12 EDT] Krupa Walker RN [facility] Lab - AP Resultson 08-10-201 8 Lab - AP Results [id number]#1.00 [facility] Pathology Sendout Teston Pathology Send Out. See Report [facility] Comment on above: Performed By: #### 2 [id number] ####[facility] (DEFAULT)[address] [place] [address] Coding Summaryon 05-10-2018 Coding Summary CODING DATE: 05/10/2018 FINAL [facility] STATUS: Home PAYOR: Bal Youngblood Grouper: 470 MS-DRG MAJOR HIP AND KNEE JOINT REPLACEMENT OR REATTACHMENT OF LOWER EXTREMITY W/O RETIREMENT Low Trim 0 High Trim 999 ADMIT DX: M16.11 Unilateral primary osteoarthritis, right hip REASON FOR VISIT DX: FINAL DX: PRINCIPAL: M16.11 Y Unilateral primary osteoarthritis, right hip SECONDARY: I10 Y Essential (primary) hypertension PROCEDURES DOCTOR NAME DATE [id number] Replacement of Right Hip Joint MAICOL BELLO 05/04/2018 with Metal on Polyethylene Synthetic Substitute, Uncemented, Open Approach NOTE: The code number assigned matches the documented diagnosis and / or procedure in the patient's chart. However, the narrative phrase printed from the coding software may appear abbreviated, or result in slightly different terminology. Coded By: Yenifer Little Date Saved: 05/10/2018 12:39 pm [facility] Advance Directive Documentso n 05-07-2018 Advance Directive Documents [id number]#[id number] [facility] Consent Formson 05-07-2018 Consent Forms [id number]#1.00 [facility] History and Physicalon 05-07 History and Physical [id number]#1.00 [facility] Outside Recordson 05-07-2018 Outside Records [id number]#1.00 [facility] Outside Records [id number] [facility] Telemetry Stripson 8 Telemetry Strips [id number]#1.00 [facility] Anesthesia Noteon 05-04-2018 Anesthesia Note Patient: [...] on: 05/04/2018 13:53 EDT] Porfirio Hodge MD [facility] Anesthesia Note Patient: OANH TIM Age: 57 [...] history): All Problems Arthritis / SNOMED CT 9717082 / Confirmed Hypertension / SNOMED CT 2603332435 / Confirmed Histories Family History: Pancreatic cancer Sister Heart attack Father CVA (cerebral vascular accident).... Father Diabetes Father Procedure history: Dilation and curettage ([id number]) in 1979 at 19 Years. Social History [...] Oriented. Review / Management Laboratory Results Plan [place] Society [employer] Anesthesiologists#(ASA ) physical status classification: Class II. Anesthetic Preoperative Plan Anesthesia: Regional Spinal. Anesthetic plan, risks, benefits, and alternatives discussed with the patient and/or family. Patient verbalized understanding. Informed consent was given. [Electronically Signed on: 05/04/2018 07:54 EDT] Porfirio Hodge MD [Verified on: 05/04/2018 07:54 EDT] Porfirio Hodge MD Normal [facility] BMP Standardon 05-04-2018 eGFR AA >60 [facility] Comment on above: Result Comment: Warp Preparer med Kidney disease could be indicated at eGFRs of less than 60 ml/min/1.73m2. Kidney Failure is indicated at less than 15 ml/min/1.73m2 Performed By: #### 6 [id number], [id number], [id number] #### [facility] (DEFAULT) [address] [place] [address] 53765 eGFR Non AA >60 [facility] Comment on above: Performed By: #### 6 [id number], [id number], [id number] #### [facility] (DEFAULT) [address] [place] [address] 62758 Anion gap molar conc 15.0 mmol/L Normal 5.0-19.0 [facility] Comment on above: Performed By: #### 6 [id number], [id number], [id number] #### [facility] (DEFAULT) [address] [place] [address]993 Calcium mass conc 9.5 mg/dL Normal 8.9-10.3 [facility] Comment on above: Performed By: #### 6 161480, [id number], [id number] #### [facility] (DEFAULT) [address] [place] [address] 36812 Chloride molar conc 88 mmol/L Low 101-111 [facility] Comment on above: Performed By: #### 6 278058, [id number], [id number] #### [facility] (DEFAULT) [address] [place] [address] 48468 CO2 molar conc 25 mmol/L Normal 21-32 [facility] Comment on above: Performed By: #### 6 215650, [id number], [id number] #### [facility] (DEFAULT) [address] [place] [address] 26275 Creatinine mass conc 0.50 mg/dL Low 0.60-1.30 [facility] Comment on above: Performed By: #### 6 502009, [id number], [id number] #### [facility] (DEFAULT) [address] [place] [address] 33794 Glucose mass conc 111.0 mg/dL Normal 74.0-118.0 [facility] Comment on above: Performed By: #### 6 681077, 8663682, [id number] #### [facility] (DEFAULT) [address] [place] [address] 23835 Osmolality 248 mOsm/L [facility] Comment on above: Performed By: #### 6 228964, 7241903, [id number] #### [facility] (DEFAULT) [address] [place] [address] 85970 Potassium molar conc 4.9 mmol/L Normal 3.6-5.1 [facility] Comment on above: Performed By: #### 6 162263, 7600352, [id number] #### [facility] (DEFAULT) [address] [place] [address]257 Sodium molar conc 123.0 mmol/L Low 136.0-144.0 [facility] Comment on above: Performed By: #### 6 623448, 3848919, [id number] #### [facility] (DEFAULT) [address] [place] [address] Urea nitrogen mass conc 11 mg/dL Normal 8-26 [facility] Comment on above: Performed By: #### 6 219143, [id number], [id number] #### [facility] (DEFAULT) [address] [place] [address] Urea nitrogen/Creatinine mass ratio 22.0 mg/mg High 4.6-16.2 [facility] Comment on above: Performed By: #### 6 089933, [id number], [id number] #### [facility] (DEFAULT) [address] [place] [address] Education Noteon 05-04-2018 Education Note Education Materials [...] impact or explosive contractures to operative hip [facility] History and Physicalon 05-04 History and Physical [id number] [id number] [facility] Inpatient Patient Summaryon 05-04-2018 Inpatient Patient Summary [facility] [address] [place] [address] Patient Discharge Instructions Name: OANH TIM : 60 Patient Address: [address] [place] [address] Primary Care Provider: Name: ELMO BURTON After you are discharged if you find you have any questions, please, call [phone] ext [phone] to speak to a nurse. Discharge Diagnosis: [...] business decisions or sign any legal documents [facility] would like to thank you for allowing us to assist you with your healthcare needs. The following includes patient education materials and information regarding your injury/illness. OANH TIM has been given the following list of follow-up instructions, prescriptions, and patient education materials: Follow-up Instructions With: Address: When: ELMO BURTON [address] [place] [address] [place] [address] Business (1) With: Address: When: Mathieu Mccarthy [address] [place] [address], [facility] [address] [address] Business (1) In 2 weeks 05/18/18 Comments: [...] for Disease Control and Prevention June 2014 [facility] MAGR Intraoperative Recordon 05-04-2018 MAGR Intraoperative Record MAGR Intra-Op Record Summary Primary Physician: MAICOL BELLO Finalized Date/Time: 05/04/18 11:50:08 Pt. Name: OANH TIM/Sex: 1960 FEMALE Med Rec #: [id number] Physician: MAICOL BELLO Financial #: [id number] Pt. Type: I Room/Bed: [facility] [...] Role Performed Surgeon - Primary Anesthesiologist of Poultry Service Technician Record Time In 05/04/18 07:59:00 05/04/18 07:59:00 05/04/18 07:59:00 Time Out 05/04/18 11:08:00 05/04/18 11:08:00 05/04/18 11:08:00 Procedure Arthroplasty Hip Arthroplasty Hip Arthroplasty Hip Total(Right) Total(Right) Total(Right) Last Modified By: Marcela Rachel Cynthia M Cartier, Cynthia M 05/04/18 11:43:27 05/04/18 11:43:27 05/04/18 11:43:27 Entry 4 Entry 5 Entry 6 Case Attendee Caren Gagnon RN, Lauren M CST Bear, Stacy M BENCH ASSEMBLY INSPECTOR Role Performed Poultry Service Technician Electrocardiograph Technician Scrub Personnel Time In 05/04/18 07:59:00 05/04/18 [...] Time 05/04/18 07:25:00 Performed By Tamika [place] BENCH ASSEMBLY INSPECTOR Counts Verification Final Counts Items Included in Sponges, Sharps Final Count Status Correct Final Count Final Counts Marcela Rachel, Surgeon notified of Yes Performed By Tamika [place] BENCH ASSEMBLY INSPECTOR final counts status Outcome Met (O.20) Yes [...] REG BLANKET UPPER BODY OR Serial ?# [id number] Equipment Setting FACTORY SETTING 43C Last Modified [...] ELMINATOR PS SECTOR Serial Number Lot Number [id number] Cash Office Worker DEPUY DEPUY DEPUY Catalog # Size 48MM [...] HEAD SCREW COLLAR Serial Number Lot Number [id number] Cash Office Worker DEPUY DEPUY DEPUY Catalog # Size KA [...] Rachel 05/04/18 11:48:03 Case Comments Finalized By: Marceal Rachel Document Signatures Signed By: Marcela Rachel 05/04/18 11:50 [facility] MAGR PACU Recordon MAGR PACU Record MAGR PACU Record Summary Primary Physician: MAICOL BELLO Finalized Date/Time: 05/04/18 12:07:10 Pt. Name: OANH TIM/Sex: 1960 FEMALE Med Rec #: [id number] Physician: MAICOL BELLO Financial #: [id number] Pt. Type: I Room/Bed: [facility] Admit/Disch: 05/04/18 05:50:21 - Institution: PACU Case Times MAGR Entry 1 In PACU I 05/04/18 11:07:00 Discharge from PACU 05/04/18 12:00:00 I Last Modified By: Mely Molina RN 05/04/18 12:07:07 Finalized By: Mely Molina RN Document Signatures Signed By: Mely Molina RN 05/04/18 12:07 [facility] MAGR Preoperative Recordon 0 05-04-2018 MAGR Preoperative Record MAGR Pre-Op Record Summary Primary Physician: MAICOL BELLO Finalized Date/Time: 05/04/18 11:47:50 Pt. Name: OANH TIM /Sex: 1960 FEMALE Med Rec #: [id number] Physician: MAICOL BELLO Financial #: [id number] Pt. Type: I Room/Bed: [facility]/1 Admit/Disch: 05/04/18 05:50:21 - Institution: Pre-Op Case [...] Signed By: Nyla Hylton RN 05/04/18 11:47 [facility] Nutrition Noteon 05-04-2018 Nutrition Note 57 year [...] status and appetite once advanced in diet. [facility] Progress Note - Nurseon 08 Protein mass [...] on: 05/04/2018 19:04 EDT] Hermila Shoemaker RN [facility] Protein mass conc Patient ambulates around room and approx 100 feet in marrero. tolerates well. Able to ambulate to br and void a small amount. [Electronically Signed on: 05/04/2018 19:06 EDT] Hermila Shoemaker RN [Verified on: 05/04/2018 19:06 EDT] Hermila Shoemaker RN [facility] Protein mass conc Spoke with Dr. Bello [...] on: 05/04/2018 15:17 EDT] Anabella Sauer RN [facility] XR Hip Complete Righton XR Hip Complete [...] RIGHT HIP. Mike Larson MD JOB #: [id number] bf Final Dictated by: Mike Larson MD Dictated DT/TM: 05/04/18 12:43 Signed (Electronic Signature): Mike Larson MD 05/04/18 1:12 pm Technologist: ANTOINETTE CAO [facility] Comment on above: Order Comment: on ca ll to pacu Progress Note - Nurseon Protein mass conc Spoke with pt and informed her to be here at 6am and NPO after MN, she verbalizes understanding. [Electronically Signed on: 05/03/2018 09:32 EDT] Regino Sanchez RN [Verified on: 05/03/2018 09:32 EDT] Regino Sanchez RN [facility] Coding Summaryon 04-21-2018 Coding Summary CODING DATE: 04/21/2018 [facility] STATUS: Home PAYOR: [employer] ADMIT DX: [...] Nadja Tuttle Date Saved: 04/21/2018 06:16 pm [facility] Provider Orderson 04-17-2018 Protein mass conc [id number] OTGTIFF [facility] .Auto Diff 1on 04-16-2018 Auto Baso % 1.0 % Normal 0.2-2.0 [facility] Comment on above: Performed By: #### 6 [id number], [id number], [id number] #### [facility] (DEFAULT) [address] [place] [address] 39458 Auto Wasatch % 10 % Normal 1-12 [facility] Comment on above: Performed By: #### 6 985096, 5228638, [id number] #### [facility] (DEFAULT) [address] [place] [address] 09924 Auto Neut % 52 % Normal 44-88 [facility] Comment on above: Performed By: #### 6 094578, 8277042, [id number] #### [facility] (DEFAULT) [address] [place] [address] 09872 Baso Abs# 0.1 x10 Normal 0.0-0.2 [facility] Comment on above: Performed By: #### 6 656665, 9115811, [id number] #### [facility] (DEFAULT) [address] [place] [address] 95582 Eos Abs# 0.4 x10 Normal 0.0-0.4 [facility] Comment on above: Performed By: #### 6 256031, 1477346, 75129131 #### [facility] (DEFAULT) [address] [place] [address] 12825 Eosinophils/100 WBC (Bld) 5.4 % High 0.9-4.0 [facility] Comment on above: Performed By: #### 6 909207, 4480004, [id number] #### [facility] (DEFAULT) [address] [place] [address] Lymphocytes #/vol (Bld) 2.3 x10 Normal 1.3-2.9 [facility] Comment on above: Performed By: #### 6 078583, 9052289, [id number] #### [facility] (DEFAULT) [address] [place] [address] Lymphocytes/100 WBC (Bld) 32 % Normal 14-48 [facility] Comment on above: Performed By: #### 6 774122, 9535866, 47145918 #### [facility] (DEFAULT) [address] [place] [address] Wasatch Abs# 0.7 x10 Normal 0.0-0.8 [facility] Comment on above: Performed By: #### 6 017882, 5470630, [id number] #### [facility] (DEFAULT) [address] [place] [address] Neut Abs# 3.8 x10 Normal 1.5-9.2 [facility] Comment on above: Performed By: #### 6 960099, 5914220, 59235977 #### [facility] (DEFAULT) [address] [place] [address] CBC w/ Auto Diffon 8 Erythrocyte distribution width Ratio (RBC) 12.9 % Normal 11.5-15.0 [facility] Comment on above: Performed By: #### 6 128483, 1825433, [id number] #### [facility] (DEFAULT) [address] [place] [address] Hematocrit Volume Fraction (Bld) 38.6 % Normal 33.7-40.4 [facility] Comment on above: Performed By: #### 6 716959, 0642801, 79035485 #### [facility] (DEFAULT) [address] [place] [address] Hemoglobin mass conc (Bld) 13.2 g/dL Normal 11.3-15.9 [facility] Comment on above: Performed By: #### 6 851859, 6227273, 71719270 #### [facility] (DEFAULT) [address] [place] [address] 38492 Man Diff? Auto Normal [facility] Comment on above: Performed By: #### 6 023218, 8482977, 58101341 #### [facility] (DEFAULT) [address] [place] [address] 64635 MCH Entitic mass (RBC) 35 pg High 24-34 [facility] Comment on above: Performed By: #### 6 096498, 1675654, 61753448 #### [facility] (DEFAULT) [address] [place] [address] MCHC mass conc (RBC) 34 g/dL Normal 26-37 [facility] Comment on above: Performed By: #### 6 624050, 3780271, 37647942 #### [facility] (DEFAULT) [address] [place] [address] MCV Entitic volume (RBC) 101 fL High 81-100 [facility] Comment on above: Performed By: #### 6 243248, 7082246, 26353847 #### [facility] (DEFAULT) [address] [place] [address] Platelet mean volume Entitic volume (Bld) 8.9 fL Normal 6.3-10.2 [facility] Comment on above: Performed By: #### 6 604809, 5685953, 63563679 #### [facility] (DEFAULT) [address] [place] [address] Platelets #/vol (Bld) 256 x10 Normal 138-427 [facility] Comment on above: Performed By: #### 6 205664, 0256090, 90342461 #### [facility] (DEFAULT) [address] [place] [address] RBC #/vol (Bld) 3.81 x10 Normal 3.70-5.30 [facility] Comment on above: Performed By: #### 6 054158, 3377648, 73136283 #### [facility] (DEFAULT) [address] [place] [address] WBC #/vol (Bld) 7.2 x10 [facility] Comment on above: Performed By: #### 6 344256, 5448732, 68841369 #### [facility] (DEFAULT) [address] [place] [address] CMP Standardon 04-16-2018 eGFR Non AA >60 [facility] Comment on above: Performed By: #### 6 335010, 4007914, 20915007 #### [facility] (DEFAULT) [address] [place] [address] eGFR AA >60 [facility] Comment on above: Result Comment: Warp Preparer med Kidney disease could be indicated at eGFRs of less than 60 ml/min/1.73m2. Kidney Failure is indicated at less than 15 ml/min/1.73m2 Performed By: #### 6 626350, 6747872, 76135731 #### [facility] (DEFAULT) [address] [place] [address] Albumin mass conc 4.1 g/dL Normal 3.5-5.0 [facility] Comment on above: Performed By: #### 6 970984, 5091817, 63472007 #### [facility] (DEFAULT) [address] [place] [address] Albumin/Globulin mass ratio 1.5 {ratio} Normal 1.4-2.6 [facility] Comment on above: Performed By: #### 6 751027, 3145607, 70134286 #### [facility] (DEFAULT) [address] [place] [address] Alk Phos 46 IU/L Normal 32-91 [facility] Comment on above: Performed By: #### 6 415477, 1840309, 49821964 #### [facility] (DEFAULT) [address] [place] [address] ALT/SGPT 17.0 IU/L Normal 14.0-54.0 [facility] Comment on above: Performed By: #### 6 906886, 9965015, 72598921 #### [facility] (DEFAULT) [address] [place] [address] Anion gap molar conc 11.0 mmol/L Normal 5.0-19.0 [facility] Comment on above: Performed By: #### 6 004752, 3089691, 80654399 #### [facility] (DEFAULT) [address] [place] [address] AST/SGOT 16 IU/L Normal 15-41 [facility] Comment on above: Performed By: #### 6 052609, 8065897, 75036001 #### [facility] (DEFAULT) [address] [place] [address] Bili Total 0.7 mg/dL Normal 0.3-1.2 [facility] Comment on above: Performed By: #### 6 529558, 3194497, 80878826 #### [facility] (DEFAULT) [address] [place] [address] Calcium mass conc 9.1 mg/dL Normal 8.9-10.3 [facility] Comment on above: Performed By: #### 6 482739, 7144242, 07395741 #### [facility] (DEFAULT) [address] [place] [address] Chloride molar conc 99 mmol/L Low 101-111 [facility] Comment on above: Performed By: #### 6 432327, 0195747, 17568288 #### [facility] (DEFAULT) [address] [place] [address] CO2 molar conc 27 mmol/L Normal 21-32 [facility] Comment on above: Performed By: #### 6 932186, 3126160, 18756657 #### [facility] (DEFAULT) [address] [place] [address] Creatinine mass conc 0.61 mg/dL Normal 0.60-1.30 [facility] Comment on above: Performed By: #### 6 800570, 8885512, 06341812 #### [facility] (DEFAULT) [address] [place] [address] 27969 Globulin mass conc (S) 2.7 g/dL Normal 1.5-4.3 [facility] Comment on above: Performed By: #### 6 191210, 9136609, 71042897 #### [facility] (DEFAULT) [address] [place] [address] 17033 Glucose mass conc 90.0 mg/dL Normal 74.0-118.0 [facility] Comment on above: Performed By: #### 6 415501, 1847902, 44012606 #### [facility] (DEFAULT) [address] [place] [address] 16542 Osmolality 264 mOsm/L [facility] Comment on above: Performed By: #### 6 385476, 0875538, 30918933 #### [facility] (DEFAULT) [address] [place] [address] 62105 Potassium molar conc 4.4 mmol/L Normal 3.6-5.1 [facility] Comment on above: Performed By: #### 6 065693, 2969290, 32537557 #### [facility] (DEFAULT) [address] [place] [address] 72889 Protein mass conc 6.8 g/dL Normal 6.5-8.1 [facility] Comment on above: Performed By: #### 6 717012, 6254642, 57449360 #### [facility] (DEFAULT) [address] [place] [address] 54679 Sodium molar conc 133.0 mmol/L Low 136.0-144.0 [facility] Comment on above: Performed By: #### 6 325845, 4708555, 35697570 #### [facility] (DEFAULT) [address] [place] [address] 00745 Urea nitrogen mass conc 8 mg/dL Normal 8-26 [facility] Comment on above: Performed By: #### 6 335750, 1167586, 01192673 #### [facility] (DEFAULT) [address] [place] [address] 17759 Urea nitrogen/Creatinine mass ratio 13.0 mg/mg Normal 4.6-16.2 [facility] Comment on above: Performed By: #### 6 051468, 4773733, 51152656 #### [facility] (DEFAULT) [address] [place] [address] 39407 PT/PTTon 04-16-2018 aPTT Coag time (Bld) 27 second(s) Normal 25-35 [facility] Comment on above: Performed By: #### 6 870689, 2735108, 24155104 #### [facility] (DEFAULT) [address] [place] [address] 68224 INR Coag RelTime (PPP) 1.01 {INR} Normal 0.91-1.11 [facility] Comment on above: Performed By: #### 6 498527, 2030096, 20898657 #### [facility] (DEFAULT) [address] [place] [address] 15763 Prothrombin time (PT) Coag time (PPP) 10.5 second(s) Normal 9.7-11.8 [facility] Comment on above: Performed By: #### 6 890325, 6437132, 27752329 #### [facility] (DEFAULT) [address] [place] [address] Progress Note - Nurseon 04-[address] Lim reviews pt medical clearance and ok pt for surgery, orders BMP on day of surgery. [Electronically Signed on: 04/16/2018 14:18 EDT] Regino Sanchez RN [Verified on: 04/16/2018 14:18 EDT] Regino Sanchez RN Normal [facility] UA w Culture if Ind Standard on 04-16-2018 Breakpoint UA Normal [facility] Comment on above: Performed By: #### 6 385618, 4612464, [id number] #### [facility] (DEFAULT) [address] [place] [address] 83772 Color Nom (U) YELLOW [facility] Comment on above: Performed By: #### 6 374983, 7756975, 77618917 #### [facility] (DEFAULT) [address] [place] [address] 53428 Culture? Not Indicated [facility] Comment on above: Performed By: #### 6 209878, 4788292, 95924228 #### [facility] (DEFAULT) [address] [place] [address] 98214 Glucose mass conc (U) Negative [facility] Comment on above: Performed By: #### 6 344609, 8476815, 29134307 #### [facility] (DEFAULT) [address] [place] [address] 69949 Ketones Ql (U) Negative [facility] Comment on above: Performed By: #### 6 796351, 4356964, 47502859 #### [facility] (DEFAULT) [address] [place] [address] 33360 Micro? Not Indicated [facility] Comment on above: Performed By: #### 6 038417, 0979696, 73658085 #### [facility] (DEFAULT) [address] [place] [address] 83883 UA Bilirubin Negative Normal [facility] Comment on above: Performed By: #### 6 085800, 5850960, 53883938 #### [facility] (DEFAULT) [address] [place] [address] 45852 UA Blood Negative Normal NEGATIVE [facility] Comment on above: Performed By: #### 6 172391, 8655309, 95122441 #### [facility] (DEFAULT) [address] [place] [address] 77633 UA Clarity CLEAR Normal CLEAR [facility] Comment on above: Performed By: #### 6 895686, 9175096, 49881450 #### [facility] (DEFAULT) [address] [place] [address] 15343 UA Leuk Est Negative Normal NEGATIVE [facility] Comment on above: Performed By: #### 6 672224, 6100874, 62020976 #### [facility] (DEFAULT) [address] [place] [address] 89173 UA Nitrite Negative Normal NEGATIVE [facility] Comment on above: Performed By: #### 6 483764, 6147259, 74172298 #### [facility] (DEFAULT) [address] [place] [address] 89625 UA pH 6.0 5-8 [facility] Comment on above: Performed By: #### 6 072049, 2603579, 52382412 #### [facility] (DEFAULT) [address] [place] [address] 10865 UA Protein Negative Normal NEGATIVE [facility] Comment on above: Performed By: #### 6 158795, 5452811, 09876327 #### [facility] (DEFAULT) [address] [place] [address] 26947 UA Spec Grav <=1.005 1.001-1.035 [facility] Comment on above: Performed By: #### 6 890036, 2036267, 57779055 #### [facility] (DEFAULT) [address] [place] [address] 57416 UA Urobilinogen 0.2 mg/dL Normal 0.2-1.0 [facility] Comment on above: Performed By: #### 6 991953, 8335996, 63743098 #### [facility] (DEFAULT) [address] [place] [address] 90118 Urine Source Clean Catch [facility] Comment on above: Performed By: #### 6 138494, 1282191, 18512343 #### [facility] (DEFAULT) [address] [place] [address] 10269 Provider Orderson 03-09-2018 Protein mass conc [id number]#1.00 OTGTIFF [facility] Coding Summaryon 03-05-2018 Coding Summary CODING DATE: 03/05/2018 FINAL [facility] STATUS: Home PAYOR: [facility] DESCRIPTION 5521 Level 1 Imaging without Contrast ADMIT DX: REASON FOR VISIT DX: Z01.818 Encounter for other preprocedural examination FINAL DX: PRINCIPAL: Z01.818 Encounter for other preprocedural examination SECONDARY: M16.0 Bilateral primary osteoarthritis of hip Z79.01 buttermaker (current) use of anticoagulants I10 Essential (primary) [...] Samra Gutierrez Date Saved: 03/05/2018 09:05 am [facility] Progress Note - Nurseon 02-[address] Hopper wants pt medical cleared prior to surgery d/t HTN, low potassium and sodium. Loaders spoke to Мария at Dr Bello and she states that she will make sure that family doctor is aware of this. [Electronically Signed on: 03/01/2018 13:38 EDT] Regino Sanchez RN [Verified on: 03/01/2018 13:38 EDT] Regino Sanchez RN [facility] .Auto Diff 1on 02-27-2018 Auto Baso % 0.8 % Normal 0.2-2.0 [facility] Comment on above: Performed By: #### 6 322694, 5741898, 09423873 #### [facility] (DEFAULT) [address] [place] [address] Auto Wasatch % 12 % Normal 1-12 [facility] Comment on above: Performed By: #### 6 256242, 9030693, 64720346 #### [facility] (DEFAULT) [address] [place] [address] Auto Neut % 59 % Normal 44-88 [facility] Comment on above: Performed By: #### 6 805910, 6120027, 77681421 #### [facility] (DEFAULT) [address] [place] [address] Baso Abs# 0.0 x10 Normal 0.0-0.2 [facility] Comment on above: Performed By: #### 6 901858, 1559842, 85532589 #### [facility] (DEFAULT) [address] [place] [address] Eos Abs# 0.2 x10 Normal 0.0-0.4 [facility] Comment on above: Performed By: #### 6 595349, 8231005, 31331283 #### [facility] (DEFAULT) [address] [place] [address] Eosinophils/100 WBC (Bld) 2.6 % Normal 0.9-4.0 [facility] Comment on above: Performed By: #### 6 832986, 7064558, 39851044 #### [facility] (DEFAULT) [address] [place] [address] Lymphocytes #/vol (Bld) 1.6 x10 Normal 1.3-2.9 [facility] Comment on above: Performed By: #### 6 026883, 6370838, 39696906 #### [facility] (DEFAULT) [address] [place] [address] Lymphocytes/100 WBC (Bld) 26 % Normal 14-48 [facility] Comment on above: Performed By: #### 6 530272, 6464767, 72499071 #### [facility] (DEFAULT) [address] [place] [address] Wasatch Abs# 0.7 x10 Normal 0.0-0.8 [facility] Comment on above: Performed By: #### 6 911191, 2469804, 28426487 #### [facility] (DEFAULT) [address] [place] [address] Neut Abs# 3.6 x10 Normal 1.5-9.2 [facility] Comment on above: Performed By: #### 6 260719, 1856950, 05690574 #### [facility] (DEFAULT) [address] [place] [address] BMP Standardon 02-27-2018 eGFR AA >60 [facility] Comment on above: Result Comment: Warp Preparer med Kidney disease could be indicated at eGFRs of less than 60 ml/min/1.73m2. Kidney Failure is indicated at less than 15 ml/min/1.73m2 Performed By: #### 1 [id number] #### [facility] (DEFAULT) [address] [place] [address] 14971 eGFR Non AA >60 [facility] Comment on above: Performed By: #### 1 [id number] #### [facility] (DEFAULT) [address] [place] [address] 31241 Anion gap molar conc 12.0 mmol/L Normal 5.0-19.0 [facility] Comment on above: Performed By: #### 1 [id number] #### [facility] (DEFAULT) [address] [place] [address] 90521 Calcium mass conc 9.1 mg/dL Normal 8.9-10.3 [facility] Comment on above: Performed By: #### 1 [id number] #### [facility] (DEFAULT) [address] [place] [address] 99677 Chloride molar conc 87 mmol/L Low 101-111 [facility] Comment on above: Performed By: #### 1 [id number] #### [facility] (DEFAULT) [address] [place] [address] 85299 CO2 molar conc 27 mmol/L Normal 21-32 [facility] Comment on above: Performed By: #### 1 [id number] #### [facility] (DEFAULT) [address] [place] [address] 99081 Creatinine mass conc 0.52 mg/dL Low 0.60-1.30 [facility] Comment on above: Performed By: #### 1 [id number] #### [facility] (DEFAULT) [address] [place] [address] 38841 Glucose mass conc 91.0 mg/dL Normal 74.0-118.0 [facility] Comment on above: Performed By: #### 1 [id number] #### [facility] (DEFAULT) [address] [place] [address] 93926 Osmolality 245 mOsm/L [facility] Comment on above: Performed By: #### 1 [id number] #### [facility] (DEFAULT) [address] [place] [address] 30166 Potassium molar conc 3.2 mmol/L Low 3.6-5.1 [facility] Comment on above: Performed By: #### 1 [id number] #### [facility] (DEFAULT) [address] [place] [address] Sodium molar conc 123.0 mmol/L Low 136.0-144.0 [facility] Comment on above: Performed By: #### 1 [id number] #### [facility] (DEFAULT) [address] [place] [address] Urea nitrogen mass conc 7 mg/dL Low 8-26 [facility] Comment on above: Performed By: #### 1 [id number] #### [facility] (DEFAULT) [address] [place] [address] Urea nitrogen/Creatinine mass ratio 13.0 mg/mg Normal 4.6-16.2 [facility] Comment on above: Performed By: #### 1 [id number] #### [facility] (DEFAULT) [address] [place] [address] CBC w/ Auto Diffon 8 Erythrocyte distribution width Ratio (RBC) 12.6 % Normal 11.5-15.0 [facility] Comment on above: Performed By: #### 6 719732, 8362942, 49765043 #### [facility] (DEFAULT) [address] [place] [address] Hematocrit Volume Fraction (Bld) 38.7 % Normal 33.7-40.4 [facility] Comment on above: Performed By: #### 6 994844, 0181940, 54169938 #### [facility] (DEFAULT) [address] [place] [address] Hemoglobin mass conc (Bld) 13.8 g/dL Normal 11.3-15.9 [facility] Comment on above: Performed By: #### 6 037429, 6966822, 33170226 #### [facility] (DEFAULT) [address] [place] [address] Man Diff? Auto Normal [facility] Comment on above: Performed By: #### 6 412469, 1832301, 22400936 #### [facility] (DEFAULT) [address] [place] [address] 64497 MCH Entitic mass (RBC) 34 pg Normal 24-34 [facility] Comment on above: Performed By: #### 6 580963, 3113995, 31311904 #### [facility] (DEFAULT) [address] [place] [address] 93503 MCHC mass conc (RBC) 36 g/dL Normal 26-37 [facility] Comment on above: Performed By: #### 6 042123, 5426082, 43346462 #### [facility] (DEFAULT) [address] [place] [address] 62188 MCV Entitic volume (RBC) 96 fL Normal 81-100 [facility] Comment on above: Performed By: #### 6 520307, 0430006, 52682828 #### [facility] (DEFAULT) [address] [place] [address] Platelet mean volume Entitic volume (Bld) 8.5 fL Normal 6.3-10.2 [facility] Comment on above: Performed By: #### 6 904203, 2416368, 46994000 #### [facility] (DEFAULT) [address] [place] [address] 91086 Platelets #/vol (Bld) 362 x10 Normal 138-427 [facility] Comment on above: Performed By: #### 6 966928, 8467310, 08760927 #### [facility] (DEFAULT) [address] [place] [address] 04677 RBC #/vol (Bld) 4.04 x10 Normal 3.70-5.30 [facility] Comment on above: Performed By: #### 6 989307, 6945408, 48396611 #### [facility] (DEFAULT) [address] [place] [address] 74515 WBC #/vol (Bld) 6.1 x10 [facility] Comment on above: Performed By: #### 6 994678, 9112066, 71229422 #### [facility] (DEFAULT) [address] [place] [address] 01834 PT/PTTon 02-27-2018 aPTT Coag time (Bld) 30 second(s) Normal 25-35 [facility] Comment on above: Performed By: #### 6 498203, 0130777, 52871191 #### [facility] (DEFAULT) [address] [place] [address] INR Coag RelTime (PPP) 1.02 {INR} Normal 0.91-1.11 [facility] Comment on above: Performed By: #### 6 902620, 5247111, 41211827 #### [facility] (DEFAULT) [address] [place] [address] Prothrombin time (PT) Coag time (PPP) 10.6 second(s) Normal 9.7-11.8 [facility] Comment on above: Performed By: #### 6 308379, 7629318, 05194352 #### [facility] (DEFAULT) [address] [place] [address] UA Ukggm2rd 02-27-2018 RBC #/vol (U) None Seen [facility] Comment on above: Order Comment: Urina lysis Microscopic order added on by [employer] system. Performed By: #### 1 [id number], [id number] #### [facility] (DEFAULT) [address] [place] [address] UA Bacteria Trace [facility] Comment on above: Order Comment: Urina lysis Microscopic order added on by [employer] system. Performed By: #### 1 [id number], [id number] #### [facility] (DEFAULT) [address] [place] [address] UA Squam Epi Moderate Normal [facility] Comment on above: Order Comment: Urina lysis Microscopic order added on by [employer] system. Performed By: #### 1 [id number], [id number] #### [facility] (DEFAULT) [address] [place] [address] UA WBC 0-2 [facility] Comment on above: Order Comment: Urina lysis Microscopic order added on by [employer] system. Performed By: #### 1 [id number], [id number] #### [facility] (DEFAULT) [address] [place] [address] UA w Culture if Ind Standard on 02-27-2018 Breakpoint UA Normal [facility] Comment on above: Performed By: #### 1 [id number], [id number] #### [facility] (DEFAULT) [address] [place] [address] 29557 Color Nom (U) YELLOW [facility] Comment on above: Performed By: #### 1 [id number], [id number] #### [facility] (DEFAULT) [address] [place] [address] 005[address] Culture? Not Indicated [facility] Comment on above: Performed By: #### 1 [id number], [id number] #### [facility] (DEFAULT) [address] [place] [address] 35601 Glucose mass conc (U) Negative [facility] Comment on above: Performed By: #### 1 [id number], [id number] #### [facility] (DEFAULT) [address] [place] [address] 55965 Ketones Ql (U) Negative [facility] Comment on above: Performed By: #### 1 [id number], [id number] #### [facility] (DEFAULT) [address] [place] [address] 70065 Micro? Indicated [facility] Comment on above: Performed By: #### 1 [id number], [id number] #### [facility] (DEFAULT) [address] [place] [address] 51016 UA Bilirubin Negative Normal [facility] Comment on above: Performed By: #### 1 [id number], [id number] #### [facility] (DEFAULT) [address] [place] [address] 33937 UA Blood Negative Normal NEGATIVE [facility] Comment on above: Performed By: #### 1 [id number], [id number] #### [facility] (DEFAULT) [address] [place] [address] 89035 UA Clarity CLEAR Normal CLEAR [facility] Comment on above: Performed By: #### 1 [id number], [id number] #### [facility] (DEFAULT) [address] [place] [address] 19412 UA Leuk Est TRACE Abnormal NEGATIVE [facility] Comment on above: Performed By: #### 1 [id number], [id number] #### [facility] (DEFAULT) [address] [place] [address] 58315 UA Nitrite Negative Normal NEGATIVE [facility] Comment on above: Performed By: #### 1 [id number], [id number] #### [facility] (DEFAULT) [address] [place] [address] 58103 UA pH 6.5 5-8 [facility] Comment on above: Performed By: #### 1 [id number], [id number] #### [facility] (DEFAULT) [address] [place] [address] 20474 UA Protein Negative Normal NEGATIVE [facility] Comment on above: Performed By: #### 1 [id number], [id number] #### [facility] (DEFAULT) [address] [place] [address] 63884 UA Spec Grav 1.010 1.001-1.035 [facility] Comment on above: Performed By: #### 1 [id number], [id number] #### [facility] (DEFAULT) [address] [place] [address] 78325 UA Urobilinogen 0.2 mg/dL Normal 0.2-1.0 [facility] Comment on above: Performed By: #### 1 [id number], [id number] #### [facility] (DEFAULT) [address] [place] [address] 77242 Urine Source Clean Catch Normal [facility] Comment on above: Performed By: #### 1 [id number], [id number] #### [facility] (DEFAULT) [address] [place] [address] 10460 XR Chest 2 Viewson 8 XR Chest [...] THE CHEST. Mike Larson MD JOB #: [id number] ul Final Dictated by: Mike Larson MD Dictated DT/TM: 02/27/18 2:53 Signed (Electronic Signature): Mike Larson MD 02/27/18 3:58 pm Technologist: NU CAO Normal [facility] Encounters Encounter Date Encounter Type Care Provider [...] End: 01-08-2019 Evaluation and management of inpatient [facility] Facility:[facility] Start: 04-17-2018 End: 04-17-2018 Patient encounter procedure [facility] Facility:[facility] Start: 02-27-2018 End: 02-28-2018 Patient encounter procedure MAICOL BELLO Facility:[facility] Payers Date Payer Category Payer Self-pay ABC 1960 Unknown [id number] 2.16.84 [id number] 1960 Unknown [id number] 2.16.84 [id number] 1960 Unknown [id number] 2.16.84 0.1.889073.3.579.2.718 1960 Unknown [id number] 2.16.84 0.1.670074.3.579.2.718 1960 Unknown [id number] 2.16.84 0.1.455537.3.579.2.593 1960 Unknown [id number] 2.16.84 0.1.989227.3.579.2.593 1960 Unknown [id number] 2.16.84 0.1.176731.3.579.2.593 1960 Unknown [id number] 2.16.84 0.1.621817.3.579.2.593 1960 Unknown [id number] 2.16.84 0.1.469887.3.579.2.593 1960 Unknown [id number] 2.16.84 0.1.585991.3.579.2.1259 1960 Unknown [id number] 2.16.84 0.1.553849.3.579.2.1259 1959 Unknown [id number] Summary Purpose Family History No Family History Records FoundNo Family History Records FoundNo Family History Records Found Advance Directives No Advanced Directives Records FoundNo Advanced Directives Records FoundNo Advanced Directives Records Found Hospital Course Note [facility] Discharge Summary PERSON INFORMATION Name OANH TIM Age 57 Years 60 Sex FEMALE Language Turkish PCP ELMO BURTON Marital Status Med Service Surgery Acct# Arrival 05/04/18 05:50:21 Visit Reason SURGERY - RIGHT TOTAL HIP Acuity [facility] Address: [address] [place] [address] [address] [facility] [id number] Comment: PROVIDER INFORMATION VITALS INFORMATION Vital Sign [...] section and content) DATE CREATED AUTHOR 01/09/[address] [facility] DATE CREATED AUTHOR AUTHOR'S ORGANIZ ATION 11/19/2022 [facility] DATE CREATED AUTHOR AUTHOR'S ORGANIZ ATION 12/10/2023 [facility] FOR RECORDS PERTAINING TO PATIENTS WHO [...] BE BASED ON THE PRIMARY CLINICAL RECORDS. [facility] [employer] [facility]. provides no warranty or guarantee of the accuracy or completeness of information in this document.
[2024-01-26 12:09] LABS: Age Gdln ACOG Testing Note (.); HPV Aptima Negative (Negative); IGP, Aptima HPV, rfx 16/18,45 Note (.)
== END 2024-01-22 21:13 | disposition home or self-care (01) ==
LOC: LAB 21:12
PROVIDERS: PCP Internal Medicine; Visit Provider Physician Assistant
DX: Z01.419 Encounter for gynecological examination (general) (routine) without abnormal findings (principal)
CPT/HCPCS: 87624; G0145

== ENCOUNTER 2024-12-16 13:02 | Outpatient (OUT) | payer BC, SELFPAY ==
--- NOTE | 2024-12-16 | MM_ITS ---
Patient Name: OANH TIM MR#: [id number] : 1960 Exam Date: 12/16/2024 Ordering Doctor: BRITTANY Matson CNP RADIOLOGY REPORT PROCEDURE: MM TOMOSYNTHESIS SCREENING BI COMPARISON: MM TOMOSYNTHESIS SCREENING BI, 12/14/2023. MG MAMM SCREEN 3D [place] CAD, 11/22/2021. INDICATIONS: Screening for malignant neoplasm Calculator Name NCI Breast Cancer Risk Assessment Tool 5 Year Breast Cancer Risk 2.00% Lifetime Breast Cancer Risk 7.90% Personal Breast Cancer No Personal Ovarian Cancer No Treatments None Family Cancers Grandfather-maternal with stomach cancer at age 75. LOCATION: [facility] BREAST COMPOSITION: The breasts are heterogeneously dense,which may obscure small masses. FINDINGS: DIAGNOSTIC CATEGORY 1--NEGATIVE. LEFT BREAST: No significant suspicious finding. RIGHT BREAST: No significant suspicious finding. RECOMMENDATIONS: ROUTINE MAMMOGRAM AND CLINICAL EVALUATION IN 12 MONTHS. PLEASE NOTE: A NORMAL MAMMOGRAM DOES NOT EXCLUDE THE POSSIBILITY OF BREAST CANCER. A CLINICALLY SUSPICIOUS PALPABLE LUMP SHOULD BE BIOPSIED. Dictated by: Meek Dalal DO on 12/16/2024 at 16:03 Approved by: Meek Dalal DO on 12/16/2024 at 16:07
[2024-12-16 13:49] LABS: Basophils Absolute Auto 0.1 10^3/uL (0.0-0.1); Basophils Percent Auto 1.2 % (0.2-2.0); Eosinophils Absolute Auto 0.2 10^3/uL (0.0-0.7); Eosinophils Percent Auto 2.4 % (0.9-7.0); Hematocrit 41.2 % (36.0-48.0); Immature Granulocytes Abs Auto 0.04 10^3/uL (0.00-0.03); Immature Granulocytes Pct Auto 0.4 % (0.0-0.5); Lymphocytes Percent Auto 21.2 % (20.5-60.0); Mean Corpuscular Hemoglobin 34.1 pg (26.7-34.0); Mean Corpuscular Volume 100.2 fL (81.0-99.0); Mean Platelet Volume 9.2 fL (9.5-13.5); Monocytes Absolute Auto 0.9 10^3/uL (0.3-0.8); Monocytes Percent Auto 9.9 % (1.7-12.0); Neutrophils Absolute Auto 6.2 10^3/uL (1.4-6.5); Neutrophils Percent Auto 64.9 % (43.0-75.0); Platelet Count 349 10^3/uL (150-450); Red Blood Count 4.11 10^6/uL (4.20-5.40); Red Cell Distribution Width 12.4 % (11.0-15.0); White Blood Count 9.5 10^3/uL (4.0-11.0)
[2024-12-16 14:04] LABS: Bilirubin Urine NEGATIVE (NEGATIVE); Blood Urine NEGATIVE (NEGATIVE); Clarity Urine CLEAR (CLEAR); Color Urine LT. YELLOW (YELLOW); Glucose Urine UA NEGATIVE (NEGATIVE); Ketones Urine NEGATIVE (NEGATIVE); Leukocyte Esterase Urine LARGE (NEGATIVE); Nitrite Urine NEGATIVE (NEGATIVE); Protein Urine TRACE mg/dL (NEG/TRACE); Urobilinogen Urine 0.2 EU/dL (0.2-1.0)
[2024-12-16 14:06] LABS: Creatinine Urine Random 36.78 mg/dL (20.00-300.00); Microalbum Creatinine Ratio Ur 285.4 mg/g (0.0-29.9); Microalbumin Urine Random 10.5 mg/dL (<=30.0)
[2024-12-16 14:10] LABS: Urine Microscopic Indicated YES
[2024-12-16 14:22] LABS: Alanine Aminotransferase 26 U/L (14-59); Albumin Globulin Ratio 1.1; Albumin Level 4.3 g/dL (3.4-5.0); Alkaline Phosphatase 77 U/L (46-116); Anion Gap 12.3; Aspartate Amino Transferase 22 U/L (15-37); BUN Creatinine Ratio 12.2; Bilirubin Total 0.4 mg/dL (0.2-1.0); Calcium 9.3 mg/dL (8.5-10.1); Carbon Dioxide 27.8 mmol/L (21.0-32.0); Chloride 96 mmol/L (98-107); Cholesterol 228 mg/dL (<=200); Estimated GFR (African America >60 (>=60 mL/min/1.73m^2); Estimated GFR (Non-African Ame >60 (>=60 mL/min/1.73m^2); Globulin 3.8 g/dL; Glucose 111 mg/dL (74-106); HDL Cholesterol 159 mg/dL (40-60); Potassium 4.1 mmol/L (3.5-5.1); Sodium 132 mmol/L (136-145); Thyroid Stimulating Hormone 2.648 uIU/mL (0.358-3.740); Total Protein 8.1 g/dL (6.4-8.2); Triglycerides 76 mg/dL (<=150); VLDL CHOLESTEROL 15.2 mg/dL
[2024-12-16 14:26] LABS: Chol HDL Ratio 1.4
[2024-12-16 14:42] LABS: RBC Urine 0-2 #/HPF (0-2); WBC Urine 20-50 #/HPF (NONE SEEN)
[2024-12-16 14:43] LABS: Bacteria Urine MODERATE #/HPF (NONE SEEN); Cast Seen? NONE SEEN #/LPF (NONE SEEN); Crystals Seen? None Seen #/HPF (None Seen); Mucus Urine NONE SEEN (NONE SEEN); Squamous Epithelial Cell Urine MODERATE #/LPF (NONE/RARE)
== END 2024-12-16 13:03 | disposition home or self-care (01) ==
LOC: MAMMO 13:03
PROVIDERS: PCP Nurse Practitioner; Visit Provider Nurse Practitioner
DX: Z00.00 Encounter for general adult medical examination without abnormal findings (principal); Z12.31 Encounter for screening mammogram for malignant neoplasm of breast; Z80.0 Family history of malignant neoplasm of digestive organs
CPT/HCPCS: 36415; 77063; 77067; 80053; 80061; 81001; 82043; 82570; 84443; 85025

== ENCOUNTER 2025-01-10 12:44 | Outpatient (OUT) | payer BC, SELFPAY ==
--- OUTSIDE RECORDS SUMMARY | 2025-01-10 12:49 | XMS_ITS | CCD ---
Author Organization [facility] Care Team Providers Care Alliance Director Name Role Phone STEPNUPUR MAICOL C Admitting Unavailable STEPANIC, MAICOL C Attending Unavailable ELMO BURTON Primary Care Unavailable STEPANIC, MAICOL C Admitting Unavailable STEPANIC, MAICOL C Attending Unavailable ELMO BURTON Primary Care Unavailable Kodi Mccoy Attending Unavailable STEPANIC, MAICOL C Referring Unavailable HEMEELMO LAURA Primary Care Unavailable STEPANIC, MAICOL C Admitting Unavailable STEPANIC, MAICOL C Attending Unavailable HEMEELMO LAURA Primary Care Unavailable FAWWAD, MADRIGAL H Admitting [...] Unavailable FAWWAD, MADRIGAL H Attending Unavailable FAWWAD, AMDRIGAL H Admitting Unavailable FAWWAD, MADRIGAL H Primary Care Unavailable DR DONALD JESSICA Consulting Unavailable FAWWAD, MADRIGAL H Attending Unavailable FAWWAD, MADRIGAL H Consulting Unavailable Elmer DAILEY, Kyle Primary Care Provider Remedios SPENCER, Rcoio Unavailable [phone] Shaikh Pichardo MD Unavailable Rocio Whittaker NP Unavailable [phone] ANABELLA MATSON Attending Unavailable BARBY CASTELLANO Attending Unavailable SHAIKH PICHARDO Referring Unavailable LAWRENCE HENDRIX Attending Unavailable SHAIKH PICHARDO Referring Unavailable SHAIKH PICHARDO Attending Unavailable ROCIO WHITTAKER Attending Unavailabl e Allergies Allergy Classification Reported Allergen(s) Allergy Type Date of Onset Reaction(s) Facility (4 sources) amLODIPine Drug Allergy 10-03-2023 Swelling [facility] (4 sources) hydrALAZINE Drug Allergy 10-03-2023 [facility] (4 sources) Losartan Drug Allergy 10-03-2023 [facility] Medications Current Medications Medication Drug Class(es) Dates Sig (Normalized) Sig (Original) carbamide peroxide 65 mg/ml otic solution (2 sources) Start: 05-27-2024 End: 05-31-2024 carbamide peroxide (Debrox) 6.5 % otic solution Indications: Cerumen debris on tympanic membrane of left ear Administer 3-5 drops into affected ear(s) in the morning and 3-5 drops before bedtime. Do all this for 4 days. 15 mL 05/27/2024 05/31/2024 Active Completed/Discontinued Medications Medication Drug Class(es) Dates Sig (Normalized) Sig (Original) amLODIPine 10 mg oral tablet (11 sources) Dihydropyridine Calcium Channel Ivana Start: 03-26-2024 End: 05-26-2025 take 1 tablet by mouth once daily amLODIPine (Norvasc) 10 MG tablet Indications: Benign essential hypertension (CMS/HCC) TAKE 1 TABLET (10 MG) BY MOUTH DAILY. 90 tablet 1 08/28/2024 11/27/2024 Discontinued (Reorder) losartan potassium 100 mg oral tablet (12 sources) Angiotensin 2 Receptor Ivana Start: 08-28-2024 End: 11-27-2024 take 1 tablet by mouth once daily losartan (Cozaar) 100 MG tablet Indications: Benign essential hypertension (CMS/HCC) Take 1 tablet (100 mg) by mouth Daily 90 tablet 11/27/2024 11/27/2024 Discontinued (Reorder) Start: 04-18-2024 End: 07-17-2024 take 1 tablet by mouth once daily losartan (Cozaar) 100 MG tablet Indications: Benign essential hypertension (CMS/HCC) Take 1 tablet (100 mg) by mouth Daily 90 tablet 04/18/2024 Active 24 hr metoprolol succinate 100 mg extended release oral tablet (11 sources) beta-Adrenergic Ivana Start: 01-31-2024 End: 11-27-2024 take 1 tablet by mouth once daily metoprolol succinate XL (Toprol-XL) 100 MG 24 hr tablet Indications: Essential (primary) hypertension (CMS/HCC) , Essential hypertension (CMS/HCC) TAKE 1 TABLET BY MOUTH EVERY DAY 90 tablet 1 08/28/2024 11/27/2024 Discontinued (Reorder) naproxen sodium 550 mg oral tablet (8 sources) Nonsteroidal Anti-inflammatory Drug End: 11-27-2024 take 1 tablet by mouth twice daily as needed for pain naproxen sodium (Anaprox) 550 MG tablet Take 550 mg by mouth 2 (two) times a day as needed for mild pain 11/27/2024 Discontinued (Therapy completed) nicotine 4 mg oral lozenge (20 sources) Cholinergic Nicotinic Agonist Start: 05-27-2024 End: 11-27-2024 nicotine (Nicoderm, Step 2) 14 MG/24HR patch Indications: Cigarette smoker Place 1 patch over 24 hours on the skin 1 (one) time each day at the same time for 14 days 14 patch 05/27/2024 11/27/2024 Discontinued (Cost of medication) Start: 05-27-2024 End: 11-27-2024 nicotine (Nicoderm, Step 1) 21 MG/24HR patch Indications: Cigarette smoker Place 1 patch over 24 hours on the skin 1 (one) time each day at the same time 42 patch 05/27/2024 11/27/2024 Discontinued (Cost of medication) Start: 05-27-2024 End: 11-27-2024 nicotine (Nicoderm, Step 3) 7 MG/24HR patch Indications: Cigarette smoker Place 1 patch over 24 hours on the skin 1 (one) time each day at the same time for 14 days 14 patch 05/27/2024 11/27/2024 Discontinued (Cost of medication) Start: 05-27-2024 End: 11-27-2024 nicotine polacrilex (Nicotin e Mini) 4 MG lozenge Indications: Cigarette smoker Dissolve 1 lozenge (4 mg) in the mouth every 2 (two) hours if needed for smoking cessation 100 lozenge 05/27/2024 11/27/2024 Discontinued (Cost of medication) sertraline 100 mg oral tablet (10 sources) Serotonin Reuptake Inhibitor Start: 05-08-2024 End: 11-27-2024 take 1 tablet by mouth once daily sertraline (Zoloft) 100 MG tablet Indications: Moderate major depression (CMS/HCC) TAKE 1 TABLET BY MOUTH EVERY DAY 90 tablet 11/06/2024 11/27/2024 Discontinued (Therapy completed) Problems Active Problems Problem Classification Problem Date Documented Date Episodic/Chronic Essential hypertension (20 sources) Essential (primary) hypertension; Translations: [Benign essential hypertension] Onset: 10-20-2022 Chronic Fluid and electrolyte disorders (4 sources) Hypo-osmolality and hyponatremia; Translations: [HYPO-OSMOLALITY AND HYPONATREMIA] Onset: 10-24-2022 Episodic Osteoarthritis (2 sources) Unilateral primary osteoarthritis, right hip; Translations: [Unilateral primary osteoarthritis, right hip] Onset: 01-08-2019 Chronic Other connective tissue disease (8 sources) Hip joint prosthesis present; Translations: [Presence of right artificial hip joint] Onset: 11-27-2023 11-27-2023 Chronic Other ear and sense organ disorders (10 sources) Impacted cerumen of bilateral ears; Translations: [Impacted cerumen, bilateral] Onset: 03-06-2024 03-06-2024 Episodic Other screening for suspected conditions (not mental disorders or infectious disease) (20 sources) Encounter for screening mammogram for malignant neoplasm of breast; Translations: [Patient encounter status] Onset: 11-22-2021 Resolved: 11-27-2024 Episodic Retinal detachments; defects; vascular occlusion; and retinopathy (8 sources) Hemorrhage of right retina; Translations: [Retinal hemorrhage, right eye] Onset: 04-14-2016 11-27-2023 Chronic Spondylosis; intervertebral disc disorders; other back problems (8 sources) Degeneration of lumbar intervertebral disc; Translations: [DDD (degenerative disc disease), lumbar] Onset: 11-27-2023 11-27-2023 Chronic Substance-related disorders (12 sources) Cigarette smoker ; Translations: [Nicotine dependence, cigarettes, uncomplicated] Onset: 11-27-2023 11-27-2023 Chronic Unclassified (3 sources) CONTACT W/AND (SUSP) EXPOS COVID-19; Translations: [CONTACT W/AND (SUSP) EXPOS COVID-19] Onset: 11-18-2022 Past or Other Problems Problem Classification Problem Date Documented Da te Episodic/Chronic Mood disorders (10 sources) Moderate major depression ; Translations: [Major depressive disorder, single episode, moderate] Onset: 11-27-2023 Resolved: 11-27-2024 08-08-2024 Chronic Other ear and sense organ disorders (2 sources) Wax in ear canal; Translations: [Impacted cerumen, left ear] 05-27-2024 Episodic Residual codes; unclassified (1 source) Family history of malignant neoplasm of digestive organs; Translations: [FAM HX MALIG NEOPLASM DIGESTIV ORGN] Onset: 11-24-2021 Episodic Residual codes; unclassified (8 sources) Tobacco user; Translations: [Tobacco use] Onset: 11-27-2023 Resolved: 11-27-2024 11-27-2023 Episodic Unclassified (1 source) CONTACT W/AND (SUSP) EXPOS COVID-19; Translations: [CONTACT W/AND (SUSP) EXPOS COVID-19] Onset: 11-14-2022 Results Test Name Value Interpretation Reference Range [facility]02 SARS-CoV-2 (COVID-19) RNA ADITYA+probe Ql (Unsp spec) Not detected Normal NOT DETECTED [facility] Comment on above: Result Comment: When [...] for this test is supported by the Elevator Constructor Helper of Health and Human Service's declaration that [...] no longer be used). Previously reported as: [id number] On 11/14/2022 17:33 By RC01 Performed By: #### [facility] #### [facility] [address] [address] [address] Pito Johnson Result Comment: This test is not yet approved or cleared by the [place] FDA. When there are no FDA-approved or cleared tests available, and other criteria are met, FDA can make tests available under an emergency access mechanism called an Emergency Use Authorization (EUA). The EUA for this test is supported by the Elevator Constructor Helper of Health and Human Service's (HHS's) declaration [...] SARS-CoV-2. INFLUENZA A AND B AGon 11-14 INFLUANEGH SEE BELOW Normal [facility] Comment on above: Result Comment: Nega tive for Flu A protein angiten. Infection due to Flu A cannot be ruled out. Flu A angiten in the sample may be below the detection limit of the test. Performed By: #### I NFLUAB #### [facility] [address] [place] [address] Dr. Pito [facility] SEE BELOW Normal [facility] Comment on above: Result Comment: Nega tive for Flu B protein antigen. Infection due to Flu B cannot be ruled out. Flu B antigen in the sample may be below the detection limit of the test. Performed By: #### I NFLUAB #### [facility] [address] [address] [address] Pito Johnson INFLUENZA A AG Negative Normal NEGATIVE SEE COMMENT [facility] Comment on above: Performed By: #### I NFLUAB #### [facility] [address] [address] [address] Pito Johnson INFLUENZA B AG Negative Normal NEGATIVE SEE COMMENT [facility] Comment on above: Performed By: #### I NFLUAB #### [facility] [address] [address] [address] Pito Johnson PROF CHEM 8 (BAS METB)on Anion gap [Moles/Vol] 10.2 mmol/L Normal [facility] Comment on above: Performed By: #### B MP #### [facility] [address] [address] [address] Pito Johnson Calcium [Mass/Vol] 9.2 mg/dL Normal 8.5-10.1 [place] Comment on above: Performed By: #### B MP #### [facility] [address] [address] [address] Pito Johnson Chloride [Moles/Vol] 96 mmol/L Critically low 98-107 [facility] Comment on above: Performed By: #### B MP #### [facility] [address] [address] [address] Pito Johnson CO2 [Moles/Vol] 31.1 mmol/L Normal 21.0-32.0 [facility] Comment on above: Performed By: #### B MP #### [facility] [address] [address] [address] Pito Johnson Creatinine [Mass/Vol] 0.65 mg/dL Normal 0.55-1.02 [facility] Comment on above: Performed By: #### B MP #### [facility] [address] [address] [address] Pito Johnson EGFR-AF NIGERIAN >60 Normal >=60 [facility] Comment on above: Performed By: #### B MP #### [facility] [address] [address] [address] Pito Johnson EGFR-NON AF NIGERIAN >60 Normal >=60 [facility] Comment on above: Performed By: #### B MP #### [facility] [address] [address] [address] Pito Johnson Glucose [Mass/Vol] 102 mg/dL Normal 74-106 [place] Comment on above: Performed By: #### B MP #### [facility] [address] [address] [address] Pito Johnson Potassium [Moles/Vol] 4.3 mmol/L Normal 3.5-5.1 [facility] Comment on above: Performed By: #### B MP #### [facility] [address] [place] [address] Dr. Pito Johnson Sodium [Moles/Vol] 133 mmol/L Critically low 136-145 [facility] Comment on above: Performed By: #### B MP #### [facility] [address] [place] [address] Dr. Pito Johnson Urea nitrogen [Mass/Vol] 12.0 mg/dL Normal 7.0-18.0 [facility] Comment on above: Performed By: #### B MP #### [facility] [address] [place] [address] Dr. Pito Johnson Urea nitrogen/Creatinine [Mass ratio] 18.5 mg/mg Normal [facility] Comment on above: Performed By: #### B MP #### [facility] [address] [place] [address] Dr. Pito Johnson CBC AUTO DIFFon 10-20-2022 BASO # 0.1 103/ul Normal 0.0-0.1 [facility] Comment on above: Performed By: #### C BC #### [facility] [address] [place] [address] Dr. Pito Johnson Basophils/100 WBC (Bld) 0.8 % Normal 0.2-2.0 [facility] Comment on above: Performed By: #### C BC #### [facility] [address] [place] [address] Dr. Pito Johnson EO # 0.3 103/ul Normal 0.0-0.7 [facility] Comment on above: Performed By: #### C BC #### [facility] [address] [place] [address] Dr. Pito Johnson Eosinophils/100 WBC (Bld) 3.4 % Normal 0.9-7.0 [facility] Comment on above: Performed By: #### C BC #### [facility] [address] [place] [address] Dr. Pito Johnson Erythrocyte distribution width (RBC) [Ratio] 12.0 % Normal 11.0-15.0 [facility] Comment on above: Performed By: #### C BC #### [facility] [address] [place] [address] Dr. Pito Johnson Hematocrit (Bld) [Volume fraction] 39.5 % Normal 36.0-48.0 [facility] Comment on above: Performed By: #### C BC #### [facility] [address] [place] [address] Dr. Pito Johnson Hemoglobin (Bld) [Mass/Vol] 14.0 g/dL Normal 12.0-16.0 [facility] Comment on above: Performed By: #### C BC #### [facility] [address] [place] [address] Dr. Pito Johnson IG # 0.03 10e3/ul Normal 0.00-0.03 [facility] Comment on above: Performed By: #### C BC #### [facility] [address] [place] [address] Dr. Pito Johnson IG % 0.3 % Normal 0.0-0.5 [facility] Comment on above: Performed By: #### C BC #### [facility] [address] [place] [address] Dr. Pito Johnson LYMPH # 2.2 103/ul Normal 1.2-3.8 [facility] Comment on above: Performed By: #### C BC #### [facility] [address] [place] [address] Dr. Pito Johnson Lymphocytes/100 WBC (Bld) 24.9 % Normal 20.5-60.0 [facility] Comment on above: Performed By: #### C BC #### [facility] [address] [place] [address] Dr. Pito Johnson MANUAL DIFF REQ NO Normal [facility] Comment on above: Performed By: #### C BC #### [facility] [address] [place] [address] Dr. Pito Johnson MCH (RBC) [Entitic mass] 34.1 pg Critically high 26.7-34.0 [facility] Comment on above: Performed By: #### C BC #### [facility] [address] [place] [address] Dr. Pito Johnson MCHC (RBC) [Mass/Vol] 35.4 g/dL Critically high 29.9-35.2 [facility] Comment on above: Performed By: #### C BC #### [facility] [address] [place] [address] Dr. Pito Johnson MCV (RBC) [Entitic vol] 96.1 fL Normal 81.0-99.0 [facility] Comment on above: Performed By: #### C BC #### [facility] [address] [place] [address] Dr. Pito Johnson MONO # 0.9 103/ul Critically high 0.3-0.8 [facility] Comment on above: Performed By: #### C BC #### [facility] [address] [place] [address] Dr. Pito Johnson Monocytes/100 WBC (Bld) 10.0 % Normal 1.7-12.0 [facility] Comment on above: Performed By: #### C BC #### [facility] [address] [place] [address] Dr. Pito Johnson NEUT # 5.4 103/ul Normal 1.4-6.5 [facility] Comment on above: Performed By: #### C BC #### [facility] [address] [place] [address] Dr. Pito Johnson Neutrophils/100 WBC (Bld) 60.6 % Normal 43.0-75.0 [facility] Comment on above: Performed By: #### C BC #### [facility] [address] [place], [place] [id number] Dr. Pito Johnson Platelet mean volume (Bld) [Entitic vol] 8.7 fL Critically low 9.5-13.5 [facility] Comment on above: Performed By: #### C BC #### [facility] [address] [place] [address] Dr. Pito Johnson PLT 376 103/ul Normal 150-450 [facility] Comment on above: Performed By: #### C BC #### [facility] [address] [address] [address] Pito Johnson RBC 4.11 106/ul Critically low 4.20-5.40 [facility] Comment on above: Performed By: #### C BC #### [facility] [address] [place] [address] Dr. Pito Johnson WBC 8.9 103/ul Normal 4.0-11.0 [facility] Comment on above: Performed By: #### C BC #### [facility] [address] [place] [address] Dr. Pito Johnson PROF CHEM 8 (BAS METB)on Anion gap [Moles/Vol] 12.0 mmol/L Normal [facility] Comment on above: Performed By: #### B MP #### [facility] [address] [place] [address] Dr. Pito Johnson Calcium [Mass/Vol] 9.6 mg/dL Normal 8.5-10.1 [place] Comment on above: Performed By: #### B MP #### [facility] [address] [place] [address] Dr. Pito Johnson Chloride [Moles/Vol] 90 mmol/L Critically low 98-107 [facility] Comment on above: Performed By: #### B MP #### [facility] [address] [place] [address] Dr. Pito Johnson CO2 [Moles/Vol] 30.1 mmol/L Normal 21.0-32.0 [facility] Comment on above: Performed By: #### B MP #### [facility] [address] [place] [address] Dr. Pito Johnson Creatinine [Mass/Vol] 0.69 mg/dL Normal 0.55-1.02 [facility] Comment on above: Performed By: #### B MP #### [facility] [address] [place] [address] Dr. Pito Johnson EGFR-AF NIGERIAN >60 Normal >=60 [facility] Comment on above: Performed By: #### B MP #### [facility] [address] [address] [address] Pito Johnson EGFR-NON AF NIGERIAN >60 Normal >=60 [facility] Comment on above: Performed By: #### B MP #### [facility] [address] [place] [address] Dr. Pito Johnson Glucose [Mass/Vol] 105 mg/dL Normal 74-106 [place] Comment on above: Performed By: #### B MP #### [facility] [address] [place] [address] Dr. Pito Johnson Potassium [Moles/Vol] 4.1 mmol/L Normal 3.5-5.1 [facility] Comment on above: Performed By: #### B MP #### [facility] [address] [place] [address] Dr. Pito Johnson Sodium [Moles/Vol] 128 mmol/L Critically low 136-145 [facility] Comment on above: Performed By: #### B MP #### [facility] [address] [place] [address] Dr. Pito Johnson Urea nitrogen [Mass/Vol] 19.0 mg/dL Critically high 7.0-18.0 [facility] Comment on above: Performed By: #### B MP #### [facility] [address] [place] [address] Dr. Pito Johnson Urea nitrogen/Creatinine [Mass ratio] 27.5 mg/mg Normal [facility] Comment on above: Performed By: #### B MP #### [facility] [address] [place] [address] Dr. Pito Johnson MG MAMM SCREEN 3D [place] CADon 11-22-2021 MG MAMM SCREEN 3D [place] CAD Patient: ARIADNA PARKINSON Exam Date: 11/22/2021 : 1960 Gender:F Ordering : SHAIKH Robyn PICHARDO . Admission #: [id number] Family : Order #: [id number] CLICK HERE TO VIEW EXAM RADIOLOGY REPORT PROCEDURE: MAMMOGRAM SCREENING 3D BILATERAL CAD COMPARISON: None. INDICATIONS: Screening mammography Calculator Name NCI Breast Cancer Risk Assessment Tool 5 Year Breast Cancer Risk 1.80% Lifetime Breast Cancer Risk 8.60% Personal Breast Cancer No Personal Ovarian Cancer No Treatments None Family Cancers Grandfather-maternal with stomach cancer at age 75. LOCATION: [facility] BREAST COMPOSITION: Extremely dense, which lowers [...] Jessica M.D. on 11/23/2021 at 11:49 Normal [facility] Provider Orderson 05-21-2018 Protein mass conc [id number]#1.00 [facility] - Nurseon 05-[address] Lennon's office notified of Na 123 on 05/04/18 [Electronically Signed on: 05/14/2018 14:12 EDT] Krupa Walker RN [Verified on: 05/14/2018 14:12 EDT] Krupa Walker RN [facility] Lab - AP Resultson 8 Lab - AP Results [id number]#1.00 [facility] Pathology Sendout Teston Pathology Send Out. See Report [facility] Comment on above: Performed By: #### 2 [id number] ####[facility] (DEFAULT)[address] [place] [address] Coding Summaryon 05-10-2018 Coding Summary CODING DATE: 05/10/2018 [facility] STATUS: Home PAYOR: Bal Cross Grouper: 470 MS-DRG MAJOR HIP AND KNEE JOINT REPLACEMENT OR REATTACHMENT OF LOWER EXTREMITY W/O LONG-TERM Low Trim 0 High Trim 999 ADMIT DX: M16.11 Unilateral primary osteoarthritis, right hip REASON FOR VISIT DX: FINAL DX: PRINCIPAL: M16.11 Y Unilateral primary osteoarthritis, right hip SECONDARY: I10 Y Essential (primary) hypertension PROCEDURES DOCTOR NAME DATE [id number] Replacement of Right Hip Joint MAICOL BELLO 05/04/2018 with Metal on Polyethylene Synthetic Substitute, Uncemented, Open Approach NOTE: The code number assigned matches the documented diagnosis and / or procedure in the patient's chart. However, the narrative phrase printed from the coding software may appear abbreviated, or result in slightly different terminology. Coded By: Yenifer Little Date Saved: 05/10/2018 12:[address] [facility] Advance Directive Documentso n 05-07-2018 Advance Directive Documents [id number]#1.00 [facility] Consent Formson 05-07-2018 Consent Forms [id number]#1.00 [facility] History and Physicalon 05-07 History and Physical [id number]#1.00 [facility] Outside Recordson 05-07-2018 Outside Records [id number]#1.00 [facility] Outside Records [id number] [facility] Telemetry Stripson 8 Telemetry Strips [id number] [facility] Anesthesia Noteon 05-04-2018 Anesthesia Note Patient: ARIADNA PARKINSON Age: 57 years Sex: FEMALE : 60 Associated Diagnoses: None Author: Porfirio Hodge MD Postoperative Information Anesthetic utilized: Regional: Spinal. Assessment Anesthetic outcome No anesthetic complications noted. Plan Transfer/ Discharge: Patient can be discharged from PACU when criteria met. Condition good. [Electronically Signed on: 05/04/2018 13:53 EDT] Porfirio Hodge MD [Verified on: 05/04/2018 13:53 EDT] Porfirio Hodge MD [facility] Anesthesia Note Patient: ARIADNA PARKINSON Age: 57 years Sex: FEMALE : 60 [...] history): All Problems Arthritis / SNOMED CT 0167839 / Confirmed Hypertension / SNOMED CT 2431127580 / Confirmed Histories Family History: Pancreatic cancer Sister Heart attack Father CVA (cerebral vascular accident).... Father Diabetes Father Procedure history: Dilation and curettage ([id number]) in 1979 at 19 Years. Social History [...] Oriented. Review / Management Laboratory Results Plan [place] [employer]hesi[employer]#(ASA ) physical status classification: Class II. Anesthetic Preoperative Plan Anesthesia: Regional Spinal. Anesthetic plan, risks, benefits, and alternatives discussed with the patient and/or family. Patient verbalized understanding. Informed consent was given. [Electronically Signed on: 05/04/2018 07:54 EDT] Porfirio Hodge MD [Verified on: 05/04/2018 07:54 EDT] Porfirio Hodge MD Normal [facility] BMP Standardon 05-04-2018 eGFR AA >60 [facility] Comment on above: Result Comment: Erp Specialist med Kidney disease could be indicated at eGFRs of less than 60 ml/min/1.73m2. Kidney Failure is indicated at less than 15 ml/min/1.73m2 Performed By: #### 6 [id number], 2374886, [id number] #### [facility] (DEFAULT) [address] [place] [address] 17018 eGFR Non AA >60 [facility] Comment on above: Performed By: #### 6 432567, 2446900, [id number] #### [facility] (DEFAULT) [address] [place] [address] 21116 Anion gap molar conc 15.0 mmol/L Normal 5.0-19.0 [facility] Comment on above: Performed By: #### 6 060149, 7193976, [id number] #### [facility] (DEFAULT) [address] [place] [address] 26923 Calcium mass conc 9.5 mg/dL Normal 8.9-10.3 [facility] Comment on above: Performed By: #### 6 229677, 3887110, [id number] #### [facility] (DEFAULT) [address] [place] [address] 00331 Chloride molar conc 88 mmol/L Low 101-111 [facility] Comment on above: Performed By: #### 6 301940, 8093536, 34804715 #### [facility] (DEFAULT) [address] [place] [address] 58591 CO2 molar conc 25 mmol/L Normal 21-32 [facility] Comment on above: Performed By: #### 6 366283, 6467293, [id number] #### [facility] (DEFAULT) [address] [place] [address] 09310 Creatinine mass conc 0.50 mg/dL Low 0.60-1.30 [facility] Comment on above: Performed By: #### 6 095654, 4213470, 04585053 #### [facility] (DEFAULT) [address] [place] [address] 64966 Glucose mass conc 111.0 mg/dL Normal 74.0-118.0 [facility] Comment on above: Performed By: #### 6 098317, 8302099, [id number] #### [facility] (DEFAULT) [address] [place] [address] 84046 Osmolality 248 mOsm/L [facility] Comment on above: Performed By: #### 6 071499, 7499721, [id number] #### [facility] (DEFAULT) [address] [place] [address] 51727 Potassium molar conc 4.9 mmol/L Normal 3.6-5.1 [facility] Comment on above: Performed By: #### 6 425096, 4929929, [id number] #### [facility] (DEFAULT) [address] [place] [address] Sodium molar conc 123.0 mmol/L Low 136.0-144.0 [facility] Comment on above: Performed By: #### 6 588504, 5087773, [id number] #### [facility] (DEFAULT) [address] [place] [address] Urea nitrogen mass conc 11 mg/dL Normal 8-26 [facility] Comment on above: Performed By: #### 6 628071, 0576298, 71894601 #### [facility] (DEFAULT) [address] [place] [address] Urea nitrogen/Creatinine mass ratio 22.0 mg/mg High 4.6-16.2 [facility] Comment on above: Performed By: #### 6 144034, 4334151, [id number] #### [facility] (DEFAULT) [address] [place] [address] Education Noteon 05-04-2018 Education Note Education Materials [...] 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 History and Physicalon 05-04 History and Physical [id number] [facility] Inpatient Patient Summaryon 05-04-2018 Inpatient Patient Summary [facility] [address] [place] [address] Patient Discharge Instructions Name: ARIADNA PARKINSON : 60 Patient Address: [address] [place], [place] [id number] Primary Care Provider: Name: ELMO BURTON After you are discharged if you find you have any questions, please, call [phone] ext [phone] to speak to a nurse. Discharge Diagnosis: [...] business decisions or sign any legal documents [facility] would like to thank you for allowing us to assist you with your healthcare needs. The following includes patient education materials and information regarding your injury/illness. ARIADNA PARKINSON has been given the following list of follow-up instructions, prescriptions, and patient education materials: Follow-up Instructions With: Address: When: ELMO BURTON [address] [place] [address] [place] [address] Business (1) With: Address: When: Mathieu Mccarthy [address] [place] [address] [address] [address] Business (1) In 2 weeks 05/18/18 Comments: [...] for Disease Control and Prevention June 2014 [facility] MAGR Intraoperative Recordon 05-04-2018 MAGR Intraoperative Record MAGR Intra-Op Record Summary Primary Physician: MAICOL BELLO Finalized Date/Time: 05/04/18 11:50:08 Pt. Name: GLENROYARIADNA/Sex: 1960 FEMALE Med Rec #: [id number] Physician: MAICOL BELLO Financial #: [id number] Pt. Type: I Room/Bed: [facility] Admit/Disch: 05/04/18 05:50:21 - Institution: Case Times [...] Role Performed Surgeon - Primary Anesthesiologist of Resident Care Assistant Record Time In 05/04/18 07:59:00 05/04/18 07:59:00 05/04/18 07:59:00 Time Out 05/04/18 11:08:00 05/04/18 11:08:00 05/04/18 11:08:00 Procedure Arthroplasty Hip Arthroplasty Hip Arthroplasty Hip Total(Right) Total(Right) Total(Right) Last Modified By: Marcela Rachel Cynthia M Cartier, Cynthia M 05/04/18 11:43:27 05/04/18 11:43:27 05/04/18 11:43:27 Entry 4 Entry 5 Entry 6 Case Attendee Caren Gagnon RN, Lauren M CST Bear, Stacy M EXPERIMENTAL BOX TESTER Role Performed Resident Care Assistant Stretch Box Tender Scrub Personnel Time In 05/04/18 07:59:00 05/04/18 [...] Prep Agents (Im.270) Povidone-Iodine Prep By Marcela Rachel Sauer, Stephanie RN Prep Area (Im.270) Hip, Leg, Foot [...] Time 05/04/18 07:25:00 Performed By Tamika Alva EXPERIMENTAL BOX TESTER Counts Verification Final Counts Items Included in Sponges, Sharps Final Count Status Correct Final Count Final Counts Marcela Rachel, Surgeon notified of Yes Performed By Tamika Alva EXPERIMENTAL BOX TESTER final counts status Outcome Met (O.20) Yes [...] REG BLANKET UPPER BODY OR Serial ?# [id number] Equipment Setting FACTORY SETTING 43C Last Modified [...] ELMINATOR PS SECTOR Serial Number Lot Number [id number] Casting Assistant DEPUY DEPUY DEPUY Catalog # Size 48MM [...] HEAD SCREW COLLAR Serial Number Lot Number [id number] Casting Assistant DEPUY DEPUY DEPUY Catalog # Size KA [...] Signatures Signed By: Marcela Rachel 05/04/18 11:50 [facility] MAGR PACU Recordon MAGR PACU Record MAGR PACU Record Summary Primary Physician: MAICOL BELLO Finalized Date/Time: 05/04/18 12:07:10 Pt. Name: ARIADNA PARKINSON/Sex: 1960 FEMALE Med Rec #: [id number] Physician: MAICOL BELLO Financial #: [id number] Pt. Type: I Room/Bed: [facility] Admit/Disch: 05/04/18 05:50:21 - Institution: PACU Case Times MAGR Entry 1 In PACU I 05/04/18 11:07:00 Discharge from PACU 05/04/18 12:00:00 I Last Modified By: Mely Molina RN 05/04/18 12:07:07 Finalized By: Mely Molina RN Document Signatures Signed By: Mely Molina RN 05/04/18 12:07 [facility] MAGR Preoperative Recordon 0 05-04-2018 MAGR Preoperative Record MAGR Pre-Op Record Summary Primary Physician: MAICOL BELLO Finalized Date/Time: 05/04/18 11:47:50 Pt. Name: ARIADNA PARKINSON /Sex: 1960 FEMALE Med Rec #: [id number] Physician: MAICOL BELLO Financial #: [id number] Pt. Type: I Room/Bed: [facility]/ Admit/Disch: 05/04/18 05:50:21 - Institution: Pre-Op Case [...] Signed By: Nyla Hylton RN 05/04/18 11:47 [facility] Nutrition Noteon 05-04-2018 Nutrition Note 57 [...] status and appetite once advanced in diet. [facility] Progress Note - Nurseon 08 Protein [...] on: 05/04/2018 19:04 EDT] Hermila Shoemaker RN [facility] Protein mass conc Patient ambulates around room and approx 100 feet in marrero. tolerates well. Able to ambulate to br and void a small amount. [Electronically Signed on: 05/04/2018 19:06 EDT] Hermila Shoemaker RN [Verified on: 05/04/2018 19:06 EDT] Hermila Shoemaker RN [facility] Protein mass conc Spoke with Dr. [...] on: 05/04/2018 15:17 EDT] Anabella Sauer RN [facility] XR Hip Complete Righton XR Hip [...] RIGHT HIP. Mike Larson MD JOB #: [id number] bf Final Dictated by: Mike Larson MD Dictated DT/TM: 05/04/18 12:43 Signed (Electronic Signature): Mike Larson MD 05/04/18 1:12 pm Technologist: ANTOINETTE CAO [facility] Comment on above: Order Comment: on ca ll to pacu Progress Note - Nurseon Protein mass conc Spoke with pt and informed her to be here at 6am and NPO after MN, she verbalizes understanding. [Electronically Signed on: 05/03/2018 09:32 EDT] Regino Sanchez RN [Verified on: 05/03/2018 09:32 EDT] Regino Sanchez RN [facility] Coding Summaryon 04-21-2018 Coding Summary CODING DATE: 04/21/2018 [facility] STATUS: Home PAYOR: [employer] ADMIT DX: REASON FOR VISIT DX: Z01.818 Encounter for other preprocedural examination FINAL DX: PRINCIPAL: Z01.818 Encounter for other preprocedural examination SECONDARY: PROCEDURES DOCTOR NAME DATE NOTE: The code number assigned matches the documented diagnosis and / or procedure in the patient's chart. However, the narrative phrase printed from the coding software may appear abbreviated, or result in slightly different terminology. Coded By: Nadja Tuttle Date Saved: 04/21/2018 06:[address] [facility] Provider Orderson 04-17-2018 Protein mass conc [id number] [facility] .Auto Diff 1on 04-16-2018 Auto Baso % 1.0 % Normal 0.2-2.0 [facility] Comment on above: Performed By: #### 6 666130, 8383036, [id number] #### [facility] (DEFAULT) [address] [place] [address] 13448 Auto Reynolds % 10 % Normal 1-12 [facility] Comment on above: Performed By: #### 6 432933, 3635306, [id number] #### [facility] (DEFAULT) [address] [place] [address] 21883 Auto Neut % 52 % Normal 44-88 [facility] Comment on above: Performed By: #### 6 919430, 2659381, 81927844 #### [facility] (DEFAULT) [address] [place] [address] 71406 Baso Abs# 0.1 x10 Normal 0.0-0.2 [facility] Comment on above: Performed By: #### 6 163099, 3331756, 73350241 #### [facility] (DEFAULT) [address] [place] [address] 06586 Eos Abs# 0.4 x10 Normal 0.0-0.4 [facility] Comment on above: Performed By: #### 6 067011, 7174211, 25980102 #### [facility] (DEFAULT) [address] [place] [address] 87205 Eosinophils/100 WBC (Bld) 5.4 % High 0.9-4.0 [facility] Comment on above: Performed By: #### 6 020225, 1622383, 57878344 #### [facility] (DEFAULT) [address] [place] [address] Lymphocytes #/vol (Bld) 2.3 x10 Normal 1.3-2.9 [facility] Comment on above: Performed By: #### 6 928894, 8870041, 86078075 #### [facility] (DEFAULT) [address] [place] [address] Lymphocytes/100 WBC (Bld) 32 % Normal 14-48 [facility] Comment on above: Performed By: #### 6 660816, 5894877, 70492405 #### [facility] (DEFAULT) [address] [place] [address] Reynolds Abs# 0.7 x10 Normal 0.0-0.8 [facility] Comment on above: Performed By: #### 6 632808, 0731076, 87403711 #### [facility] (DEFAULT) [address] [place] [address] Neut Abs# 3.8 x10 Normal 1.5-9.2 [facility] Comment on above: Performed By: #### 6 521182, 2775957, 53385555 #### [facility] (DEFAULT) [address] [place] [address] CBC w/ Auto Diffon 8 Erythrocyte distribution width Ratio (RBC) 12.9 % Normal 11.5-15.0 [facility] Comment on above: Performed By: #### 6 505798, 3713906, 73900178 #### [facility] (DEFAULT) [address] [place] [address] Hematocrit Volume Fraction (Bld) 38.6 % Normal 33.7-40.4 [facility] Comment on above: Performed By: #### 6 198010, 1309959, 07719641 #### [facility] (DEFAULT) [address] [place] [address] Hemoglobin mass conc (Bld) 13.2 g/dL Normal 11.3-15.9 [facility] Comment on above: Performed By: #### 6 288876, 2827776, 05050899 #### [facility] (DEFAULT) [address] [place] [address] 83146 Man Diff? Auto Normal [facility] Comment on above: Performed By: #### 6 024558, 4922224, 06139233 #### [facility] (DEFAULT) [address] [place] [address] 05157 MCH Entitic mass (RBC) 35 pg High 24-34 [facility] Comment on above: Performed By: #### 6 490243, 6158366, 86925178 #### [facility] (DEFAULT) [address] [place] [address] MCHC mass conc (RBC) 34 g/dL Normal 26-37 [facility] Comment on above: Performed By: #### 6 806641, 8526090, 10329169 #### [facility] (DEFAULT) [address] [place] [address] MCV Entitic volume (RBC) 101 fL High 81-100 [facility] Comment on above: Performed By: #### 6 888657, 6472175, 80979333 #### [facility] (DEFAULT) [address] [place] [address] Platelet mean volume Entitic volume (Bld) 8.9 fL Normal 6.3-10.2 [facility] Comment on above: Performed By: #### 6 947960, 3092459, 58446882 #### [facility] (DEFAULT) [address] [place] [address] Platelets #/vol (Bld) 256 x10 Normal 138-427 [facility] Comment on above: Performed By: #### 6 404646, 0782575, 16363603 #### [facility] (DEFAULT) [address] [place] [address] RBC #/vol (Bld) 3.81 x10 Normal 3.70-5.30 [facility] Comment on above: Performed By: #### 6 730858, 8718262, 59128755 #### [facility] (DEFAULT) [address] [place] [address] WBC #/vol (Bld) 7.2 x10 [facility] Comment on above: Performed By: #### 6 962193, 5488074, 79483774 #### [facility] (DEFAULT) [address] [place] [address] 51407 CMP Standardon 04-16-2018 eGFR Non AA >60 [facility] Comment on above: Performed By: #### 6 401170, 0754483, 44763972 #### [facility] (DEFAULT) [address] [place] [address] eGFR AA >60 [facility] Comment on above: Result Comment: Erp Specialist med Kidney disease could be indicated at eGFRs of less than 60 ml/min/1.73m2. Kidney Failure is indicated at less than 15 ml/min/1.73m2 Performed By: #### 6 041247, 2792148, 28995969 #### [facility] (DEFAULT) [address] [place] [address] 96186 Albumin mass conc 4.1 g/dL Normal 3.5-5.0 [facility] Comment on above: Performed By: #### 6 224121, 0805040, [id number] #### [facility] (DEFAULT) [address] [place] [address] Albumin/Globulin mass ratio 1.5 {ratio} Normal 1.4-2.6 [facility] Comment on above: Performed By: #### 6 141675, 5175565, 97599834 #### [facility] (DEFAULT) [address] [place] [address] 26045 Alk Phos 46 IU/L Normal 32-91 [facility] Comment on above: Performed By: #### 6 225991, 8241180, 46397036 #### [facility] (DEFAULT) [address] [place] [address] 85741 ALT/SGPT 17.0 IU/L Normal 14.0-54.0 [facility] Comment on above: Performed By: #### 6 202442, 5609660, 47813202 #### [facility] (DEFAULT) [address] [place] [address] 98205 Anion gap molar conc 11.0 mmol/L Normal 5.0-19.0 [facility] Comment on above: Performed By: #### 6 013277, 4780968, 97681167 #### [facility] (DEFAULT) [address] [place] [address] AST/SGOT 16 IU/L Normal 15-41 [facility] Comment on above: Performed By: #### 6 682350, 1111900, 62634065 #### [facility] (DEFAULT) [address] [place] [address] Bili Total 0.7 mg/dL Normal 0.3-1.2 [facility] Comment on above: Performed By: #### 6 629387, 5041888, 09475018 #### [facility] (DEFAULT) [address] [place] [address] Calcium mass conc 9.1 mg/dL Normal 8.9-10.3 [facility] Comment on above: Performed By: #### 6 884562, 4777179, 25125955 #### [facility] (DEFAULT) [address] [place] [address] Chloride molar conc 99 mmol/L Low 101-111 [facility] Comment on above: Performed By: #### 6 816203, 6134969, 31892414 #### [facility] (DEFAULT) [address] [place] [address] CO2 molar conc 27 mmol/L Normal 21-32 [facility] Comment on above: Performed By: #### 6 309289, 5735961, 95900783 #### [facility] (DEFAULT) [address] [place] [address] Creatinine mass conc 0.61 mg/dL Normal 0.60-1.30 [facility] Comment on above: Performed By: #### 6 651831, 7369653, 05391030 #### [facility] (DEFAULT) [address] [place] [address] Globulin mass conc (S) 2.7 g/dL Normal 1.5-4.3 [facility] Comment on above: Performed By: #### 6 684937, 9168884, 12327356 #### [facility] (DEFAULT) [address] [place] [address] 94693 Glucose mass conc 90.0 mg/dL Normal 74.0-118.0 [facility] Comment on above: Performed By: #### 6 191601, 2894367, 56805034 #### [facility] (DEFAULT) [address] [place] [address] 58438 Osmolality 264 mOsm/L [facility] Comment on above: Performed By: #### 6 259884, 2526592, 95597058 #### [facility] (DEFAULT) [address] [place] [address] 64848 Potassium molar conc 4.4 mmol/L Normal 3.6-5.1 [facility] Comment on above: Performed By: #### 6 377112, 1757711, 70448593 #### [facility] (DEFAULT) [address] [place] [address] 68114 Protein mass conc 6.8 g/dL Normal 6.5-8.1 [facility] Comment on above: Performed By: #### 6 348499, 8783550, 90775053 #### [facility] (DEFAULT) [address] [place] [address] 25641 Sodium molar conc 133.0 mmol/L Low 136.0-144.0 [facility] Comment on above: Performed By: #### 6 321850, 7985395, 53804512 #### [facility] (DEFAULT) [address] [place] [address] 40536 Urea nitrogen mass conc 8 mg/dL Normal 8-26 [facility] Comment on above: Performed By: #### 6 799342, 3474248, 98092772 #### [facility] (DEFAULT) [address] [place] [address] 88705 Urea nitrogen/Creatinine mass ratio 13.0 mg/mg Normal 4.6-16.2 [facility] Comment on above: Performed By: #### 6 374659, 0853807, 57198882 #### [facility] (DEFAULT) [address] [place] [address] 62772 PT/PTTon 04-16-2018 aPTT Coag time (Bld) 27 second(s) Normal 25-35 [facility] Comment on above: Performed By: #### 6 704456, 6287760, 28587967 #### [facility] (DEFAULT) [address] [place] [address] INR Coag RelTime (PPP) 1.01 {INR} Normal 0.91-1.11 [facility] Comment on above: Performed By: #### 6 572863, 1362744, [id number] #### [facility] (DEFAULT) [address] [place] [address] Prothrombin time (PT) Coag time (PPP) 10.5 second(s) Normal 9.7-11.8 [facility] Comment on above: Performed By: #### 6 096229, 2215603, 34244796 #### [facility] (DEFAULT) [address] [place] [address] Progress Note - Nurseon 04-[address] Lim reviews pt medical clearance and ok pt for surgery, orders BMP on day of surgery. [Electronically Signed on: 04/16/2018 14:18 EDT] Regino Sanchez RN [Verified on: 04/16/2018 14:18 EDT] Regino Sanchez RN Normal [facility] UA w Culture if Ind Standard on 04-16-[address] [facility] Comment on above: Performed By: #### 6 915770, 8478324, 29861010 #### [facility] (DEFAULT) [address] [place] [address] Color Nom (U) YELLOW [facility] Comment on above: Performed By: #### 6 919276, 7428364, 02630070 #### [facility] (DEFAULT) [address] [place] [address] 30582 Culture? Not Indicated [facility] Comment on above: Performed By: #### 6 912356, 0302840, 29753826 #### [facility] (DEFAULT) [address] [place] [address] 29646 Glucose mass conc (U) Negative [facility] Comment on above: Performed By: #### 6 390223, 3695391, 70056329 #### [facility] (DEFAULT) [address] [place] [address] 61862 Ketones Ql (U) Negative [facility] Comment on above: Performed By: #### 6 292262, 8785841, 65438066 #### [facility] (DEFAULT) [address] [place] [address] 86011 Micro? Not Indicated [facility] Comment on above: Performed By: #### 6 663972, 0520406, 04844016 #### [facility] (DEFAULT) [address] [place] [address] 25020 UA Bilirubin Negative Normal [facility] Comment on above: Performed By: #### 6 344507, 9826898, 88768601 #### [facility] (DEFAULT) [address] [place] [address] 97033 UA Blood Negative Normal NEGATIVE [facility] Comment on above: Performed By: #### 6 001504, 6680413, 59364234 #### [facility] (DEFAULT) [address] [place] [address] 70230 UA Clarity CLEAR Normal CLEAR [facility] Comment on above: Performed By: #### 6 721915, 5786670, 14921055 #### [facility] (DEFAULT) [address] [place] [address] 53477 UA Leuk Est Negative Normal NEGATIVE [facility] Comment on above: Performed By: #### 6 442464, 1182614, 73156929 #### [facility] (DEFAULT) [address] [place] [address] 94826 UA Nitrite Negative Normal NEGATIVE [facility] Comment on above: Performed By: #### 6 741499, 0928633, [id number] #### [facility] (DEFAULT) [address] [place] [address] 45073 UA pH 6.0 5-8 [facility] Comment on above: Performed By: #### 6 027983, 5798095, 13128366 #### [facility] (DEFAULT) [address] [place] [address] 09357 UA Protein Negative Normal NEGATIVE [facility] Comment on above: Performed By: #### 6 199684, 6947485, 76107656 #### [facility] (DEFAULT) [address] [place] [address] 93544 UA Spec Grav <=1.005 1.001-1.035 [facility] Comment on above: Performed By: #### 6 572215, 5218635, 39788586 #### [facility] (DEFAULT) [address] [place] [address] 17208 UA Urobilinogen 0.2 mg/dL Normal 0.2-1.0 [facility] Comment on above: Performed By: #### 6 818440, 7704645, 42962189 #### [facility] (DEFAULT) [address] [place] [address] 96427 Urine Source Clean Catch [facility] Comment on above: Performed By: #### 6 329079, [id number], [id number] #### [facility] (DEFAULT) [address] [place] [address] 78872 Provider Orderson 03-09-2018 Protein mass conc [id number] 04 [id number] [facility] Coding Summaryon 03-05-2018 Coding Summary CODING DATE: 03/05/2018 FINAL [facility] STATUS: Home PAYOR: [facility] APC DESCRIPTION 5521 Level 1 Imaging without Contrast ADMIT DX: REASON FOR VISIT DX: Z01.818 Encounter for other preprocedural examination FINAL DX: PRINCIPAL: Z01.818 Encounter for other preprocedural examination SECONDARY: M16.0 Bilateral primary osteoarthritis of hip Z79.01 FDC (current) use of anticoagulants I10 Essential (primary) [...] Samra Gutierrez Date Saved: 03/05/2018 09:[address] [facility] Progress Note - Nurseon 02-[address] Hopper wants pt medical cleared prior to surgery d/t HTN, low potassium and sodium. Tool And Die Engineer spoke to Мария at Dr Bello and she states that she will make sure that family doctor is aware of this. [Electronically Signed on: 03/01/2018 13:38 EDT] Regino Sanchez RN [Verified on: 03/01/2018 13:38 EDT] Regino Sanchez RN [facility] .Auto Diff 1on 02-27-2018 Auto Baso % 0.8 % Normal 0.2-2.0 [facility] Comment on above: Performed By: #### 6 [id number], [id number] #### [facility] (DEFAULT) [address] [place] [address] Auto Reynolds % 12 % Normal 1-12 [facility] Comment on above: Performed By: #### 6 [id number], [id number], [id number] #### [facility] (DEFAULT) [address] [place] [address] 46123 Auto Neut % 59 % Normal 44-88 [facility] Comment on above: Performed By: #### 6 [id number], [id number], [id number] #### [facility] (DEFAULT) [address] [place] [address] Baso Abs# 0.0 x10 Normal 0.0-0.2 [facility] Comment on above: Performed By: #### 6 [id number], [id number], [id number] #### [facility] (DEFAULT) [address] [place] [address] Eos Abs# 0.2 x10 Normal 0.0-0.4 [facility] Comment on above: Performed By: #### 6 [id number], [id number], [id number] #### [facility] (DEFAULT) [address] [place] [address] Eosinophils/100 WBC (Bld) 2.6 % Normal 0.9-4.0 [facility] Comment on above: Performed By: #### 6 [id number], [id number], [id number] #### [facility] (DEFAULT) [address] [place] [address] Lymphocytes #/vol (Bld) 1.6 x10 Normal 1.3-2.9 [facility] Comment on above: Performed By: #### 6 [id number], [id number], [id number] #### [facility] (DEFAULT) [address] [place] [address] Lymphocytes/100 WBC (Bld) 26 % Normal 14-48 [facility] Comment on above: Performed By: #### 6 [id number], [id number], [id number] #### [facility] (DEFAULT) [address] [place] [address] Reynolds Abs# 0.7 x10 Normal 0.0-0.8 [facility] Comment on above: Performed By: #### 6 [id number], [id number], [id number] #### [facility] (DEFAULT) [address] [place] [address] Neut Abs# 3.6 x10 Normal 1.5-9.2 [facility] Comment on above: Performed By: #### 6 [id number], [id number], [id number] #### [facility] (DEFAULT) [address] [place] [address] BMP Standardon 02-27-2018 eGFR AA >60 [facility] Comment on above: Result Comment: Erp Specialist med Kidney disease could be indicated at eGFRs of less than 60 ml/min/1.73m2. Kidney Failure is indicated at less than 15 ml/min/1.73m2 Performed By: #### 1 [id number] #### [facility] (DEFAULT) [address] [place] [address] 79565 eGFR Non AA >60 [facility] Comment on above: Performed By: #### 1 [id number] #### [facility] (DEFAULT) [address] [place] [address] 20261 Anion gap molar conc 12.0 mmol/L Normal 5.0-19.0 [facility] Comment on above: Performed By: #### 1 [id number] #### [facility] (DEFAULT) [address] [place] [address] 24745 Calcium mass conc 9.1 mg/dL Normal 8.9-10.3 [facility] Comment on above: Performed By: #### 1 [id number] #### [facility] (DEFAULT) [address] [place] [address] 43102 Chloride molar conc 87 mmol/L Low 101-111 [facility] Comment on above: Performed By: #### 1 [id number] #### [facility] (DEFAULT) [address] [place] [address] 83534 CO2 molar conc 27 mmol/L Normal 21-32 [facility] Comment on above: Performed By: #### 1 [id number] #### [facility] (DEFAULT) [address] [place] [address] 31116 Creatinine mass conc 0.52 mg/dL Low 0.60-1.30 [facility] Comment on above: Performed By: #### 1 [id number] #### [facility] (DEFAULT) [address] [place] [address] 18987 Glucose mass conc 91.0 mg/dL Normal 74.0-118.0 [facility] Comment on above: Performed By: #### 1 [id number] #### [facility] (DEFAULT) [address] [place] [address] 32801 Osmolality 245 mOsm/L [facility] Comment on above: Performed By: #### 1 [id number] #### [facility] (DEFAULT) [address] [place] [address] 79566 Potassium molar conc 3.2 mmol/L Low 3.6-5.1 [facility] Comment on above: Performed By: #### 1 [id number] #### [facility] (DEFAULT) [address] [place] [address] Sodium molar conc 123.0 mmol/L Low 136.0-144.0 [facility] Comment on above: Performed By: #### 1 [id number] #### [facility] (DEFAULT) [address] [place] [address] Urea nitrogen mass conc 7 mg/dL Low 8-26 [facility] Comment on above: Performed By: #### 1 [id number] #### [facility] (DEFAULT) [address] [place] [address] Urea nitrogen/Creatinine mass ratio 13.0 mg/mg Normal 4.6-16.2 [facility] Comment on above: Performed By: #### 1 [id number] #### [facility] (DEFAULT) [address] [place] [address] CBC w/ Auto Diffon 8 Erythrocyte distribution width Ratio (RBC) 12.6 % Normal 11.5-15.0 [facility] Comment on above: Performed By: #### 6 [id number], [id number], [id number] #### [facility] (DEFAULT) [address] [place] [address] Hematocrit Volume Fraction (Bld) 38.7 % Normal 33.7-40.4 [facility] Comment on above: Performed By: #### 6 [id number], [id number], [id number] #### [facility] (DEFAULT) [address] [place] [address] Hemoglobin mass conc (Bld) 13.8 g/dL Normal 11.3-15.9 [facility] Comment on above: Performed By: #### 6 [id number], [id number], [id number] #### [facility] (DEFAULT) [address] [place] [address] Man Diff? Auto Normal [facility] Comment on above: Performed By: #### 6 [id number], [id number], [id number] #### [facility] (DEFAULT) [address] [place], [place] [id number] MCH Entitic mass (RBC) 34 pg Normal 24-34 [facility] Comment on above: Performed By: #### 6 [id number], [id number], [id number] #### [facility] (DEFAULT) [address] [place] [address] 61188 MCHC mass conc (RBC) 36 g/dL Normal 26-37 [facility] Comment on above: Performed By: #### 6 [id number], [id number], [id number] #### [facility] (DEFAULT) [address] [place] [address] 63790 MCV Entitic volume (RBC) 96 fL Normal 81-100 [facility] Comment on above: Performed By: #### 6 [id number], [id number], [id number] #### [facility] (DEFAULT) [address] [place] [address] 93546 Platelet mean volume Entitic volume (Bld) 8.5 fL Normal 6.3-10.2 [facility] Comment on above: Performed By: #### 6 [id number], [id number], [id number] #### [facility] (DEFAULT) [address] [place] [address] 50679 Platelets #/vol (Bld) 362 x10 Normal 138-427 [facility] Comment on above: Performed By: #### 6 [id number], [id number], [id number] #### [facility] (DEFAULT) [address] [place] [address] 38287 RBC #/vol (Bld) 4.04 x10 Normal 3.70-5.30 [facility] Comment on above: Performed By: #### 6 [id number], [id number], [id number] #### [facility] (DEFAULT) [address] [place] [address] 08163 WBC #/vol (Bld) 6.1 x10 [facility] Comment on above: Performed By: #### 6 [id number], [id number], [id number] #### [facility] (DEFAULT) [address] [place] [address] 22351 PT/PTTon 02-27-2018 aPTT Coag time (Bld) 30 second(s) Normal 25-35 [facility] Comment on above: Performed By: #### 6 [id number], [id number], [id number] #### [facility] (DEFAULT) [address] [place] [address] INR Coag RelTime (PPP) 1.02 {INR} Normal 0.91-1.11 [facility] Comment on above: Performed By: #### 6 [id number], [id number], [id number] #### [facility] (DEFAULT) [address] [place] [address] Prothrombin time (PT) Coag time (PPP) 10.6 second(s) Normal 9.7-11.8 [facility] Comment on above: Performed By: #### 6 [id number], [id number], [id number] #### [facility] (DEFAULT) [address] [place] [address] UA [id number] 02-27-2018 RBC #/vol (U) None Seen [facility] Comment on above: Order Comment: Urina lysis Microscopic order added on by [employer] Expert Rules system. Performed By: #### 1 [id number], [id number] #### [facility] (DEFAULT) [address] [place] [address] [facility] Comment on above: Order Comment: Urina lysis Microscopic order added on by [employer] system. Performed By: #### 1 [id number], [id number] #### [facility] (DEFAULT) [address] [place] [address] Epi Mod[address] [facility] Comment on above: Order Comment: Urina lysis Microscopic order added on by [employer] system. Performed By: #### 1 [id number], [id number] #### [facility] (DEFAULT) [address] [place] [address] UA WBC 0-2 [facility] Comment on above: Order Comment: Urina lysis Microscopic order added on by [employer] system. Performed By: #### 1 [id number], [id number] #### [facility] (DEFAULT) [address] [place] [address] UA w Culture if Ind Standard on 02-27-2018 Breakpoint UA Normal [facility] Comment on above: Performed By: #### 1 [id number], [id number] #### [facility] (DEFAULT) [address] [place] [address] 30899 Color Nom (U) YELLOW [facility] Comment on above: Performed By: #### 1 [id number], [id number] #### [facility] (DEFAULT) [address] [place] [address] Culture? Not Indicated [facility] Comment on above: Performed By: #### 1 [id number], [id number] #### [facility] (DEFAULT) [address] [place] [address] 41923 Glucose mass conc (U) Negative [facility] Comment on above: Performed By: #### 1 [id number], [id number] #### [facility] (DEFAULT) [address] [place] [address] 63451 Ketones Ql (U) Negative [facility] Comment on above: Performed By: #### 1 [id number], [id number] #### [facility] (DEFAULT) [address] [place] [address] 89832 Micro? Indicated [facility] Comment on above: Performed By: #### 1 [id number], [id number] #### [facility] (DEFAULT) [address] [place] [address] 61788 UA Bilirubin Negative Normal [facility] Comment on above: Performed By: #### 1 [id number], [id number] #### [facility] (DEFAULT) [address] [place] [address] 21776 UA Blood Negative Normal NEGATIVE [facility] Comment on above: Performed By: #### 1 [id number], [id number] #### [facility] (DEFAULT) [address] [place] [address] 50040 UA Clarity CLEAR Normal CLEAR [facility] Comment on above: Performed By: #### 1 [id number], [id number] #### [facility] (DEFAULT) [address] [place] [address] 98666 UA Leuk Est TRACE Abnormal NEGATIVE [facility] Comment on above: Performed By: #### 1 [id number], [id number] #### [facility] (DEFAULT) [address] [place] [address] 53609 UA Nitrite Negative Normal NEGATIVE [facility] Comment on above: Performed By: #### 1 [id number], [id number] #### [facility] (DEFAULT) [address] [place] [address] 43990 UA pH 6.5 5-8 [facility] Comment on above: Performed By: #### 1 [id number], [id number] #### [facility] (DEFAULT) [address] [place] [address] 64743 UA Protein Negative Normal NEGATIVE [facility] Comment on above: Performed By: #### 1 [id number], [id number] #### [facility] (DEFAULT) [address] [place] [address] 63717 UA Spec Grav 1.010 1.001-1.035 [facility] Comment on above: Performed By: #### 1 [id number], [id number] #### [facility] (DEFAULT) [address] [place] [address] 70036 UA Urobilinogen 0.2 mg/dL Normal 0.2-1.0 [facility] Comment on above: Performed By: #### 1 [id number], [id number] #### [facility] (DEFAULT) [address] [place] [address] 82446 Urine Source Clean Catch Normal [facility] Comment on above: Performed By: #### 1 [id number], [id number] #### [facility] (DEFAULT) [address] [place] [address] 83667 XR Chest 2 Viewson 8 XR Chest [...] THE CHEST. Mike Larson MD JOB #: [id number] ul Final Dictated by: Mike Larson MD Dictated DT/TM: 02/27/18 2:53 Signed (Electronic Signature): Mike Larson MD 02/27/18 3:58 pm Technologist: NU CAO [facility] Vital Signs Date Time Vital Sign Value Performing Clinician Azuli uzlly 11-27-2024 14:44-0500 Body mass index (BMI) [Ratio] 20.94 kg/m2 Anabella Dano [employer]SEM[employer] Work Phone: [facility] 11-27-2024 14:44-0500 Body temperature 98.49 [degF] Anabella Dano [employer] Work Phone: [facility] 11-27-2024 14:44-0500 Body weight 57.97 kg Anabella Dano [employer] Work Phone: [facility] 11-27-2024 14:44-0500 Diastolic blood pressure 76 mm[Hg] Anabella Buzzyousifvirgen [employer]ER Work Phone: [facility] 11-27-2024 14:44-0500 Heart rate 68 /min Anabella Buzzyousifvirgen [employer] Work Phone: [facility] 11-27-2024 14:44-0500 SaO2% (BldA) [Mass fraction] 99 % Anabella Matson [employer] Work Phone: [facility] 11-27-2024 14:44-0500 Systolic blood pressure 132 mm[Hg] Anabella Matson [employer] Work Phone: [facility] 05-27-2024 13:59-0400 Body height 166.4 cm Rocio Whittaker [employer] Work Phone: [facility] 05-27-2024 13:59-0400 Body mass index (BMI) [Ratio] 20.65 kg/m2 Rocio Whittaker [employer] Work Phone: [facility] 05-27-2024 13:59-0400 Body temperature 98.1 [degF] Rocio Whittaker [employer] Work Phone: [facility] 05-27-2024 13:59-0400 Body weight 57.15 kg Rocio Whittaker [employer] Work Phone: [facility] 05-27-2024 13:59-0400 Diastolic blood pressure 72 mm[Hg] Rocio Whittaker [employer] Work Phone: [facility] 05-27-2024 13:59-0400 Heart rate 70 /min Rocio Whittaker [employer] Work Phone: [facility] Comment on above: 96% O2 05-27-2024 13:59-0400 Systolic blood pressure 108 mm[Hg] Rocio Whittaker [employer] Work Phone: [facility] Healthcare Encounters Encounter Date Encounter Type Care Provider Facility Start: 11-27-2024 End: 11-27-2024 Patient encounter status Anabella Matson [employer] Work Phone: [facility] Start: 11-27-2024 End: 11-27-2024 Periodic preventive med est patient 40-64yrs Anabella Gerbernorberto [employer] Work Phone: [facility] Comment on above: Wellness examination (Primary Dx); Benign essential hypertension (CMS/HCC); Cigarette smoker; Encounter for screening mammogram for malignant neoplasm of breast; Essential (primary) hypertension (CMS/HCC); Essential hypertension (CMS/HCC); Bilateral impacted cerumen Start: 11-27-2024 End: 11-27-2024 ambulatory ANABELLA MATSON Not Available Start: 11-06-2024 End: 11-06-2024 Refill Rocio Whittaker [employer] Work Phone: [facility] Comment on above: Moderate major depre ssion (CMS/HCC) Start: 08-25-2024 End: 08-28-2024 Refill Rocio Whittaker [employer] Work Phone: [facility] Comment on above: Benign essential hyp ertension (CMS/HCC); Essential (primary) hypertension (CMS/HCC); Essential hypertension (CMS/HCC) Start: 08-08-2024 End: 08-08-2024 Refill Rocio Whittaker [employer] Work Phone: [facility] Comment on above: Moderate major depre ssion (CMS/HCC) Start: 05-27-2024 End: 05-27-2024 Bamboo flowsheet Rocio Whittaker [employer] Work Phone: [facility] Start: 05-27-2024 End: 05-27-2024 Bamboo flowsheet Rocio Whittaker [employer] Work Phone: [facility] Start: 05-27-2024 End: 05-27-2024 Office outpatient visit 15 minutes Rocio Whittaker [employer] Work Phone: [facility] Comment on above: Benign essential hyp ertension (CMS/HCC) (Primary Dx); Cigarette smoker; Screening for diabetes mellitus; Cerumen debris on tympanic membrane of left ear Start: 05-27-2024 End: 05-27-2024 ambulatory ROCIO WHITTAKER Not Available Start: 03-06-2024 End: 03-06-2024 ambulatory SHAIKH DORI Not Available Start: 01-22-2024 End: 01-22-2024 ambulatory LAWRENCE HENDRIX Not Available Start: 12-06-2023 End: 12-06-2023 ambulatory BARBY CASTELLANO Not Available Start: 11-27-2023 Patient encounter status Jasmin Whittaker [employer] Work Phone: [facility] Start: 11-14-2022 End: 11-14-2022 ambulatory MADRIGAL H FAWWAD Facility:[facility] Start: 10-24-2022 End: 10-25-2022 ambulatory MADRIGAL H FAWWAD Facility:[facility] Start: 10-20-2022 End: 10-21-2022 ambulatory MADRIGAL H FAWWAD Facility:[facility] Start: 02-08-2022 ambulatory MADRIGAL H FAWWAD Facilit y:[facility] Start: 11-22-2021 End: 11-23-2021 ambulatory MADRIGAL H FAWWAD Facility:[facility] Start: 05-04-2018 End: 01-08-2019 Evaluation and management of inpatient [facility] Facility:[facility] Start: 04-17-2018 End: 04-17-2018 Patient encounter procedure [facility] Facility:[facility] Start: 02-27-2018 End: 02-28-2018 Patient encounter procedure [facility] Facility:[facility] Procedures Date Procedure Procedure Detail Performing Clinician Start: 01-24-2024 Microscopic observat ion [Identifier] in Cervix by Cyto stain Anabella Matson [employer] Work Phone: Start: 12-15-2023 Mammography Rocio lutz [employer] Work Phone: Plan of Treatment Date Care Activity Detail Author Start: 01-23-2027 Screening for malign ant neoplasm of cervix [facility] Healthcare Start: 05-27-2025 End: 05-27-2025 Patient encounter procedure 05/27/2025 2:40 PM EDT Office Visit [facility] [address] [place] [id number] Anabella Matson NP [address] [place] [id number] [facility] Start: 01-22-2025 Influenza vaccination Influenza Vacc ine (#1) [facility] Comment on above: Postponed from 06/02 (Patient Refused) Start: 12-25-2024 End: 01-25-2026 MG Breast - bilateral Screening Bilateral screening mammogram Imaging Routine Encounter for screening mammogram for malignant neoplasm of breast Expected: 12/25/2024 (Approximate), Expires: 01/25/2026 [facility] Comment on above: Expected: 12/25/2024 (Approximate), Expires: 01/25/2026 Start: 12-14-2024 Screening for malign ant neoplasm of breast Mammogram [facility] Start: 11-27-2024 End: 11-27-2025 CBC W Auto Differential panel - Blood CBC and differential Lab Routine Wellness examination Expected: 11/27/2024 (Approximate), Expires: 11/27/2025 [facility] Work Phone: Comment on above: Expected: 11/27/2024 (Approximate), Expires: 11/27/2025 Start: 11-27-2024 End: 11-27-2025 Comprehensive metabolic 2000 panel - Serum or Plasma Comprehensive metabolic panel Lab Routine Wellness examination Expected: 11/27/2024 (Approximate), Expires: 11/27/2025 [facility] Comment on above: Expected: 11/27/2024 (Approximate), Expires: 11/27/2025 Start: 11-27-2024 End: 11-27-2025 Lipid 1996 panel - Serum or Plasma Lipid panel Lab Routine Wellness examination Expected: 11/27/2024 (Approximate), Expires: 11/27/2025 [facility] Comment on above: Expected: 11/27/2024 (Approximate), Expires: 11/27/2025 Start: 11-27-2024 End: 11-27-2025 Microalbumin/Creatinine panel in random Urine Microalbumin / creatinine, urine ratio Lab Routine Wellness examination Expected: 11/27/2024 (Approximate), Expires: 11/27/2025 [facility] Comment on above: Expected: 11/27/2024 (Approximate), Expires: 11/27/2025 Start: 11-27-2024 End: 11-27-2024 Patient encounter procedure 11/27/2024 2:00 PM EST Office Visit [facility] [address] [place] [address] Rocio Whittaker NP [address] [place] [address] [facility] Start: 11-27-2024 End: 11-27-2025 Thyrotropin [Units/volume] in Serum or Plasma TSH Lab Routine Wellness examination Expected: 11/27/2024 (Approximate), Expires: 11/27/2025 [facility] Comment on above: Expected: 11/27/2024 (Approximate), Expires: 11/27/2025 Start: 11-27-2024 End: 11-27-2025 Urinalysis complete panel - Urine Urinalysis with reflex microscopic (clean catch) Lab Routine Wellness examination Expected: 11/27/2024 (Approximate), Expires: 11/27/2025 [facility] Comment on above: Expected: 11/27/2024 (Approximate), Expires: 11/27/2025 Start: 06-02-2024 Influenza vaccination Influenza Vacc ine (#1) [facility] Start: 05-27-2024 End: 05-27-2025 Hemoglobin A1c/Hemoglobin.total in Blood Hemoglobin A1c Lab Routine Screening for diabetes mellitus Expected: 05/27/2024 (Approximate), Expires: 05/27/2025 [facility] Comment on above: Expected: 05/27/2024 (Approximate), Expires: 05/27/2025 Start: 05-27-2024 End: 05-27-2025 Lipid 1996 panel - Serum or Plasma Lipid panel Lab Routine Benign essential hypertension (CMS/HCC) Expected: 05/27/2024 (Approximate), Expires: 05/27/2025 [facility] Comment on above: Expected: 05/27/2024 (Approximate), Expires: 05/27/2025 Start: 05-27-2024 End: 05-27-2024 Patient encounter procedure 05/27/2024 2:00 PM EDT Office Visit [facility] [address] [place] [address] Rocio Whittaker, [place] [address] [facility] [place] [address] Benign essential hypertension (CMS/HCC) (Primary Dx); Cigarette smoker [facility] Comment on above: Benign essential hyp ertension (CMS/HCC) (Primary Dx); Cigarette smoker Start: 05-27-2024 End: 05-27-2025 TSH W/REFLEX TO FT4 TSH W/REFLEX TO FT4 Lab Routine Benign essential hypertension (CMS/HCC) Expected: 05/27/2024 (Approximate), Expires: 05/27/2025 [facility] Work Phone: Comment on above: Expected: 05/27/2024 (Approximate), Expires: 05/27/2025 Start: 1990 Screening for malign ant neoplasm of cervix [facility] Start: 1981 Screening for malign ant neoplasm of cervix Pap Smear [facility] Start: 1960 Screening for malign ant neoplasm of colon [facility] Payers Date Payer Category Payer [facility] Blue [facility] [id number] 2018 Unknown BCBS BCBS [id number] 2018-Present [phone] [address] [place] [address] [id number] 2018 Self-pay ABC 1960 Unknown [id number] 2.16.840.1.702226.3.579.2. 718 1960 Unknown [id number] 2.16.840.1.349856.3.579.2. 718 1960 Unknown [id number] 2.16.840.1.628374.3.579.2. 718 1960 Unknown [id number] 2.16.840.1.030875.3.579.2. 718 1960 Unknown [id number] 2.16.840.1.761897.3.579.2. 593 1960 Unknown [id number] 2.16.840.1.719893.3.579.2. 593 1960 Unknown [id number] 2.16.840.1.338758.3.579.2. 593 1960 Unknown [id number] 2.16.840.1.953577.3.579.2. 593 1960 Unknown [id number] 2.16.840.1.991041.3.579.2. 593 1960 Unknown [id number] 2.16.840.1.924388.3.579.2. 1259 1960 Unknown [id number] 2.16.840.1.553697.3.579.2. 1259 1960 Unknown [id number] 2.16.840.1.303538.3.579.2. 1259 1960 Unknown [id number] 2.16.840.1.263614.3.579.2. 1259 1960 Unknown [id number] 2.16.840.1.226036.3.579.2. 1259 1959 Unknown [id number] Social History Date Type Detail Facility Start: 05-27-2024 End: 11-27-2024 Tobacco smoking status [facility] Smokes tobacco daily [facility] History of tobacco use Cigarette Smoker [facility] History of tobacco use Passive smoker [facility] Start: 05-27-2024 End: 11-27-2024 Alcoholic beverage intake Current drinker of alcohol (finding) [facility] Start: 05-26-2024 End: 05-27-2024 History of Social function [facility] Start: 05-26-2024 End: 05-27-2024 [id number] Health Literacy [facility] How often do you nee d to have someone help you when you read instructions, pamphlets, or other written material from your doctor or pharmacy [SILS] Never [facility] Do you belong to any clubs or organizations such as protestant groups, unions, fraternal or athletic groups, or school groups? No [facility] Are you now , , , , never or living with a partner? [facility] How often to you hav e a drink containing alcohol? 4 or more times a week [facility] How many standard dr inks containing alcohol do you have on a typical day? 5 or 6 [facility] How hard is it for y ou to pay for the very basics like food, housing, medical care, and heating Hard [facility] Do you feel stress - tense, restless, nervous, or anxious, or unable to sleep at night because your mind is troubled all the time - these days [OSQ] Only a little [facility] The food that (I/we) bought just didn't last, and (I/we) didn't have money to get more. Never true [facility] Start: 09-12-2023 Education 13 [facility] Start: 09-12-2023 Alcohol Comment caffeine: 2-3 cups per day coffee [facility] Start: 1960 Sex assigned at Not on file [facility] Clinical Notes 05-27-2024 to 11-27-2024 Anabella Matson NP - 11/27/2024 3:35 PM Amrik Matson NP - 11/27/2024 2:40 PM Amrik Matson NP - 11/27/2024 7:25 AM ESTAnabella Matson NP - 11/27/2024 7:21 AM ESTPatient Instructions Note Date & Type Note Facility 11-27-2024 History of Presen t illness Narrative Associated Problem(s): Bilateral impacted cerumen Ear currette used, removed large amount cerumen Tolerated well Images from the original note were not included. Ariadna Parkinson is a 64 y.o. female presents with chief complaint of No chief complaint on file. HPI: Diet:not a lot of fruit/veggies, does get a lot of dairy Activity: walking when nice Mental Health Concerns:none Any hearing problems: w ear wax build up Any Vision problems: sees eye doctor Hypertension This is a chronic problem. The current episode started more than 1 year ago. The problem is unchanged. The problem is controlled. Pertinent negatives include no blurred vision, chest pain, headaches, palpitations, peripheral edema or shortness of breath. There are no associated agents to hypertension. Risk factors for coronary artery disease include smoking/tobacco exposure. Past treatments include beta blockers, calcium channel blockers and angiotensin blockers. The current treatment provides significant improvement. There are no compliance problems. SUBJECTIVE: MEDICATIONS: Current Outpatient Medications Medication Instructions amLODIPine (NORVASC) 10 mg, Oral, Daily losartan (COZAAR) 100 mg, Oral, Daily metoprolol succinate XL (TOPROL-XL) 100 mg, Oral, Daily nicotine (Nicoderm, Step 1) 21 MG/24HR patch 1 patch, Transdermal, Every 24 hours nicotine (Nicoderm, Step 2) 14 MG/24HR patch 1 patch, Transdermal, Every 24 hours nicotine (Nicoderm, Step 3) 7 MG/24HR patch 1 patch, Transdermal, Every 24 hours nicotine polacrilex (NICOTINE MINI) 4 mg, Mouth/Throat, Every 2 hour PRN ALLERGIES: No Known Allergies REVIEW OF SYMPTOMS: Review of Systems Constitutional: Negative for appetite change, chills and fever. HENT: Negative for congestion, ear pain and sore throat. Eyes: Negative for blurred vision, pain, discharge, redness and visual disturbance. Respiratory: Negative for cough, shortness of breath and wheezing. Cardiovascular: Negative for chest pain, palpitations and leg swelling. Gastrointestinal: Negative for abdominal pain, blood in stool, constipation, diarrhea, nausea and vomiting. Genitourinary: Negative for difficulty urinating, dysuria and frequency. Musculoskeletal: Negative for arthralgias, back pain, joint swelling and myalgias. Skin: Negative for rash and wound. Neurological: Negative for dizziness, tremors, seizures, syncope and headaches. Psychiatric/Behavioral: Negative for behavioral problems, self-injury and suicidal ideas. The patient is not nervous/anxious. Hematological: Does not bruise/bleed easily. Endocrine: Negative for polydipsia, polyphagia and polyuria. Allergic/Immunologic: Negative for environmental allergies and food allergies. PAST MEDICAL HISTORY Past Medical History: Diagnosis Date AOM (acute otitis media) Patient here to f/u for earache/pressure and sinus congestion. Reports sinus pain, congestion, earache/pressure x 2-3 weeks. No fever/chills, nausea/vomiting. Suspect ruptured ear drum on both sides and dried up blood. I was unable to visualize TM Arthritis At standard risk for fall Cerumen impaction b/l cerumen impaction Depressive disorder (CMS/HCC) not elsewhere specified Essential hypertension (CMS/HCC) Doing well on current regimen. BP at goal. Not on HCTZ anymore. Hyponatremia Sodium of 128 noted on routine blood work. Patient instructed to stop using Losartan- hctz Will call in separate prescription for losartan alone and check bmp next week Left hip pain Reports intermittent left hip pain - worse on ambulation. prior hx of right hip replacement. Nondependent tobacco use disorder Pap smear of cervix declined Primary osteoarthritis of right hip Retinal hemorrhage 04/14/2016 OD Right shoulder pain Right shoulder pain x 6 months. More or less persistent. Used to work at [employer] and had to use her right arm to close/open the door constantly. no trauma or previous surgery. Not using anything for pain Pain is worse on abduction. Restricted ROM and has noticed weakness too. Screening for lung cancer Smokes 1/2 pack to 1 pack a day. Smoking for more than 40 years now Smoker Past Surgical History: Procedure Laterality Date CATARACT EXTRACTION, BILATERAL Bilateral 10/18/2023 DILATION AND CURETTAGE OF UTERUS 01/31/1980 TOTAL HIP ARTHROPLASTY Right 05/04/2018 Dr. Ace Rubi family history includes Diabetes in her father; Heart disease in her father; Hypertension in her father and mother; Kidney disease in her father; No Known Problems in her daughter and son; Pancreatic cancer in her sister. OBJECTIVE: Visit Vitals BP 132/76 (BP Location: Left arm, Patient Position: Sitting, BP Cuff Size: Adult long) Pulse 68 Temp 98.5 F (Temporal) Wt 127 lb 12.8 oz SpO2 99% BMI 20.94 kg/m OB Status Postmenopausal Smoking Status Every Day BSA 1.64 m Physical Exam Vitals and nursing note reviewed. Constitutional: General: She is not in acute distress. Appearance: Normal appearance. HENT: Head: Normocephalic and atraumatic. Right Ear: External ear normal. Left Ear: External ear normal. Ears: Comments: Large amount of cerumen removed from each canal, right TM sm amount of clear fluid, pt is getting over sinus/cold sxs Nose: Rhinorrhea present. No congestion. Mouth/Throat: Mouth: Mucous membranes are moist. Pharynx: No oropharyngeal exudate or posterior oropharyngeal erythema. Eyes: Extraocular Movements: Extraocular movements intact. Conjunctiva/sclera: Conjunctivae normal. Neck: Vascular: No carotid bruit. Cardiovascular: Rate and Rhythm: Normal rate and regular rhythm. Pulses: Normal pulses. Heart sounds: Normal heart sounds. Pulmonary: Effort: Pulmonary effort is normal. Breath sounds: Normal breath sounds. Abdominal: General: Bowel sounds are normal. There is no distension. Palpations: Abdomen is soft. There is no mass. Tenderness: There is no abdominal tenderness. Musculoskeletal: General: Normal range of motion. Cervical back: Normal range of motion and neck supple. Right lower leg: No edema. Left lower leg: No edema. Lymphadenopathy: Cervical: No cervical adenopathy. Skin: General: Skin is warm and dry. Capillary Refill: Capillary refill takes 2 to 3 seconds. Findings: No rash. Neurological: General: No focal deficit present. Mental Status: She is alert and oriented to person, place, and time. Psychiatric: Mood and Affect: Mood normal. Behavior: Behavior normal. Thought Content: Thought content normal. Judgment: Judgment normal. ASSESSMENT AND PLAN: No follow-ups on file. Problem List Items Addressed This Visit Benign essential hypertension (CMS/HCC) Please check blood pressure daily and record DASH diet Limit caffeine Take medication as directed Contact office if chest pain, pressure, dizziness, shortness of breath, swelling legs Recommend slow position changes Current meds: amlodipine, losartan, and b ivana Relevant Medications amLODIPine (Norvasc) 10 MG tablet losartan (Cozaar) 100 MG tablet Cigarette smoker The patient has been advised of the risks of continued smoking: stroke, [place], all forms of cancer, lung disease, and . Options for quitting smoking include: cold turkey, hypnosis, acupuncture, nicotine replacement meds (gum, lozenges, and patches), Buproprion, and Varenicline. At this time pt is encouraged to evaluate their goals for wanting to quit smoking, and reach out to provider when ready to start this process Wellness examination - Primary Reviewed Ht/Wt/BMI Recommend eye exam yearly Recommend dental exams twice a year Balance work/leisure activities Exercises is recommended most days of the week (appropriate as chronic conditions allow) Follow up yearly and prn Relevant Orders CBC and differential Comprehensive metabolic panel Lipid panel TSH Microalbumin / creatinine, urine ratio Urinalysis with reflex microscopic (clean catch) Bilateral impacted cerumen Ear currette used, removed large amount cerumen Tolerated well Encounter for screening mammogram for malignant neoplasm of breast Relevant Orders Bilateral screening mammogram Other Visit Diagnoses Essential (primary) hypertension (CMS/HCC) Relevant Medications metoprolol succinate XL (Toprol-XL) 100 MG 24 hr tablet Essential hypertension (CMS/HCC) Relevant Medications metoprolol succinate XL (Toprol-XL) 100 MG 24 hr tablet Associated Problem(s): Wellness examination Reviewed Ht/Wt/BMI Recommend eye exam yearly Recommend dental exams twice a year Balance work/leisure activities Exercises is recommended most days of the week (appropriate as chronic conditions allow) Follow up yearly and prn Associated Problem(s): Cigarette smoker The patient has been advised of the risks of continued smoking: stroke, [place], all forms of cancer, lung disease, and . Options for quitting smoking include: cold turkey, hypnosis, acupuncture, nicotine replacement meds (gum, lozenges, and patches), Buproprion, and Varenicline. At this time pt is encouraged to evaluate their goals for wanting to quit smoking, and reach out to provider when ready to start this process Associated Problem(s): Benign essential hypertension (CMS/HCC) Please check blood pressure daily and record DASH diet Limit caffeine Take medication as directed Contact office if chest pain, pressure, dizziness, shortness of breath, swelling legs Recommend slow position changes Current meds: amlodipine, losartan, and b ivana documented in this encounter [facility] 11-27-2024 Instructions Anabella Matson NP - 11/27/2024 2:40 PM EST Mammogram will send to [facility], if no call in about 2 weeks you can call them: [phone] ext [phone] Fasting labs: 8 hours documented in this encounter [facility] 08-28-2024 Telephone encount er Note REYNALDO:05/27/2024 NOV:11/27/2023 [facility] 08-28-2024 Miscellaneous Notes Formattin g of this note might be different from the original. REYNALDO:05/27/2024 NOV:11/27/2023 documented in this encounter [facility] 05-27-2024 History of Presen t illness Narrative Associated Problem(s): Cigarette smoker Current 1ppd smoker for 20+ years. Has tried Chantix in past, has GI intolerance. Interested in cessation. Ordered Nicotine Patches. Associated Problem(s): Benign essential hypertension (CMS/HCC) Amlodipine 10mg Losartan 100mg Metoprolol Succinate 100mg Denies orthostatic changes, edema to extremities. Tolerating medication regimen well, continue current regimen. Images from the original note were not included. Subjective Patient ID: Ariadna Parkinson is a 63 y.o. female who presents for Follow-up. HPI HTN: Amlodipine 10mg Losartan 100mg Metoprolol Succinate 100mg Checks BP at home once per week. States average 120's. Denies orthostatic changes, edema to extremities. Tolerating medication regimen well, continue current regimen. Colon CA Screening: Done In November Cervical CA Screening: Pap/Cervical Ca Screening done in December Mammogram: Done in November; Repeat in 1 year. Diet: Mostly home cooked meals; Moderate protein intake. Water: Not enough Exercise: Daily; walking Sleep: 6-8 hours per night. Good quality. Review of Systems Constitutional: Negative for activity change, appetite change, chills, diaphoresis, fatigue, fever and unexpected weight change. HENT: Negative for congestion, ear pain, rhinorrhea, sinus pressure, sinus pain, sneezing, sore throat, trouble swallowing and voice change. Eyes: Negative for visual disturbance. Respiratory: Negative for cough, chest tightness, shortness of breath and wheezing. Cardiovascular: Negative for chest pain, palpitations and leg swelling. Gastrointestinal: Negative for abdominal distention, abdominal pain, blood in stool, constipation, diarrhea and vomiting. Genitourinary: Negative for decreased urine volume, dysuria, flank pain, frequency, hematuria and urgency. Musculoskeletal: Negative for arthralgias, gait problem, joint swelling and myalgias. Skin: Negative for rash. Neurological: Negative for dizziness, tremors, syncope, weakness, light-headedness and headaches. Psychiatric/Behavioral: Negative for decreased concentration and suicidal ideas. The patient is not nervous/anxious. Hematological: Does not bruise/bleed easily. Endocrine: Negative for cold intolerance, heat intolerance, polydipsia, polyphagia and polyuria. Objective Physical Exam Vitals reviewed. Constitutional: Appearance: Normal appearance. HENT: Head: Normocephalic and atraumatic. Right Ear: Tympanic membrane normal. Left Ear: Tympanic membrane normal. Nose: Nose normal. Mouth/Throat: Mouth: Mucous membranes are moist. Pharynx: Oropharynx is clear. Eyes: Pupils: Pupils are equal, round, and reactive to light. Cardiovascular: Rate and Rhythm: Normal rate and regular rhythm. Pulses: Normal pulses. Heart sounds: Normal heart sounds. Pulmonary: Effort: Pulmonary effort is normal. Breath sounds: Normal breath sounds. Abdominal: General: Abdomen is flat. Bowel sounds are normal. Palpations: Abdomen is soft. Musculoskeletal: General: Normal range of motion. Cervical back: Normal range of motion. Skin: General: Skin is warm and dry. Capillary Refill: Capillary refill takes less than 2 seconds. Neurological: General: No focal deficit present. Mental Status: She is alert and oriented to person, place, and time. Psychiatric: Mood and Affect: Mood normal. Behavior: Behavior normal. Assessment/Plan Problem List Items Addressed This Visit Benign essential hypertension (CMS/HCC) - Primary Amlodipine 10mg Losartan 100mg Metoprolol Succinate 100mg Denies orthostatic changes, edema to extremities. Tolerating medication regimen well, continue current regimen. Cigarette smoker Current 1ppd smoker for 20+ years. Has tried Chantix in past, has GI intolerance. Interested in cessation. Ordered Nicotine Patches. documented in this encounter [facility] 05-27-2024 Instructions Rocio Whittaker NP - 05/27/2024 2:00 PM EDT FASTING labs ordered. Nothing to eat or drink for 12 hours prior to blood draw. Water and black coffee ok. Your blood pressure is GOOD in the office today. Check your blood pressure at home 3 times per week, preferably in the afternoon. Goal <130/90. Record results in blood pressure log. Bring back with you to your next visit. Diet: Eat three meals per day. Breakfast, lunch, and dinner. Avoid snacking. Avoid eating after 5/6 pm. Daily protein GOAL 35% of your intake; 30g per meal. Water: Increase water intake; GOAL 64-80oz of water per day. Exercise: Increase activity. GOAL 30 minutes, 5 days per week. START SLOW. Start with 5 minutes, 5 days per week. Then increase to 10 days, 5 days per week. Continue to increase until you reach the goal. Increase steps; GOAL 10,000 steps per day. Be sure to get adequate sleep; GOAL 6-8 hours of sleep per night. documented in this encounter [facility] Evaluation note Diagnosis Encounter for screening for malignant neoplasm of colon- Primary Benign essential hypertension (CMS/HCC) Essential hypertension, benign Moderate major depression (CMS/HCC) Major depressive disorder, single episode, moderate Wellness examination Screening mammogram, encounter for Tobacco abuse Tobacco use disorder Bilateral impacted cerumen- Primary Impacted cerumen Benign essential hypertension (CMS/HCC)- Primary Essential hypertension, benign Cigarette smoker Tobacco use disorder Screening for diabetes mellitus Cerumen debris on tympanic membrane of left ear Moderate major depression (CMS/HCC) Major depressive disorder, single episode, moderate documented [facility] Diagnosis Encounter for screening for malignant neoplasm of colon- Primary Benign essential hypertension (CMS/HCC) Essential hypertension, benign Moderate major depression (CMS/HCC) Major depressive disorder, single episode, moderate Wellness examination Screening mammogram, encounter for Tobacco abuse Tobacco use disorder Bilateral impacted cerumen- Primary Impacted cerumen Benign essential hypertension (CMS/HCC)- Primary Essential hypertension, benign Cigarette smoker Tobacco use disorder Screening for diabetes mellitus Cerumen debris on tympanic membrane of left ear Benign essential hypertension (CMS/HCC) Essential hypertension, benign Essential (primary) hypertension (CMS/HCC) Unspecified essential hypertension Essential hypertension (CMS/HCC) Unspecified essential hypertension documented [facility] Diagnosis Benign essential hypertension (CMS/HCC)- Primary Essential hypertension, benign Cigarette smoker Tobacco use disorder Screening for diabetes mellitus Cerumen debris on tympanic membrane of left ear documented [facility] Diagnosis Encounter for screening for malignant neoplasm of colon- Primary Benign essential hypertension (CMS/HCC) Essential hypertension, benign Moderate major depression (CMS/HCC) Major depressive disorder, single episode, moderate Wellness examination Screening mammogram, encounter for Tobacco abuse Tobacco use disorder Bilateral impacted cerumen- Primary Impacted cerumen Benign essential hypertension (CMS/HCC)- Primary Essential hypertension, benign Cigarette smoker Tobacco use disorder Screening for diabetes mellitus Cerumen debris on tympanic membrane of left ear Moderate major depression (CMS/HCC) Major depressive disorder, single episode, moderate [facility] Diagnosis Encounter for screening for malignant neoplasm of colon- Primary Benign essential hypertension (CMS/HCC) Essential hypertension, benign Moderate major depression (CMS/HCC) Major depressive disorder, single episode, moderate Wellness examination Screening mammogram, encounter for Tobacco abuse Tobacco use disorder Bilateral impacted cerumen- Primary Impacted cerumen Benign essential hypertension (CMS/HCC)- Primary Essential hypertension, benign Cigarette smoker Tobacco use disorder Screening for diabetes mellitus Cerumen debris on tympanic membrane of left ear Wellness examination- Primary Benign essential hypertension (CMS/HCC) Essential hypertension, benign Cigarette smoker Tobacco use disorder Encounter for screening mammogram for malignant neoplasm of breast Essential (primary) hypertension (CMS/HCC) Unspecified essential hypertension Essential hypertension (CMS/HCC) Unspecified essential hypertension Bilateral impacted cerumen Impacted cerumen documented in this encounter [facility] Summary Purpose Family History No Family History Records FoundNo Family History Records FoundNo Family History Records Found Advance Directives No Advanced Directives Records FoundDocuments on File Type Date Recorded Patient Lifestyle Coordinator Expl anation Advance Directives and Living Will 12/02/2019 2013-12-13 [facility] Course Note [facility] Clinical Discharge Summary PERSON INFORMATION Name ARIADNA PARKINSON Age 57 Years 60 Sex FEMALE Language Turkmen PCP ELMO BURTON Marital Status Med Service Surgery Acct# Arrival 05/04/18 05:50:21 Visit Reason SURGERY - RIGHT TOTAL HIP Acuity LOS Address: [address] [place] [address] Comment: PROVIDER INFORMATION VITALS INFORMATION Vital Sign [...] section and content) DATE CREATED AUTHOR 01/09/2019 [facility] DATE CREATED AUTHOR AUTHOR'S ORGANIZ ATION 11/19/2022 [facility] DATE CREATED AUTHOR AUTHOR'S ORGANIZ ATION 11/29/2024 [facility] EPIC Reason for Visit (unrecogniz ed section and content) Reason Comments Med Refill Reason Comments Follow-up Care Teams (unrecognized sec tion and content) Alliance Director Relationship Specialty Start Date End Date Kyle Payne MD [address] [place] [id number] PCP - General Family Medicine 05/06/24 Shaikh Pichardo MD [address] [place] [phone] PCP - [facility] 06/02/24 Rocio Whittaker NP [address] [place] [phone] Nurse Practitioner Family Medicine 05/06/24 Alliance Director Relationship Specialty Start Date End Date Kyle Payne MD [address] [place] [address] PCP - General Family Medicine 05/06/24 Shaikh Pichardo MD [address] [place] [address] PCP - [facility] 06/02/24 Rocio Whittaker NP [address] [place] [address] Nurse Practitioner Family Medicine 05/06/24 Alliance Director Relationship Specialty Start Date End Date Kyle Payne MD [address] [place] [phone] PCP - General Family Medicine 05/06/24 Rocio Whittaker NP [address] [place] [address] Nurse Practitioner Family Medicine 05/06/24 Alliance Director Relationship Specialty Start Date End Date Kyle Payne MD [address] [place] [phone] PCP - General Family Medicine 05/06/24 Rocio Whittaker NP [address] [place] [address] Nurse Practitioner Family Medicine 05/06/24 Alliance Director Relationship Specialty Start Date End Date Kyle Payne MD [address] [place] [phone] PCP - General Family Medicine 05/06/24 Shaikh Pichardo MD [address] [place] [phone] PCP - [facility] 06/02/24 Rocio Whittaker NP [address] [place] [address] Nurse Practitioner Family Medicine 05/06/24 Alliance Director Relationship Specialty Start Date End Date Kyle Payne MD [address] [place] [id number] PCP - General Family Medicine 05/06/24 Shaikh Pichardo MD [address] [place] [id number] PCP - [facility] 06/02/24 Rocio Whittaker NP [address] [place] [id number] Nurse Practitioner Family Medicine 05/06/24 FOR RECORDS PERTAINING TO PATIENTS WHO ARE [...] BE BASED ON THE PRIMARY CLINICAL RECORDS. [employer] provides no warranty or guarantee of the accuracy or completeness of information in this document.
[2025-01-10 13:36] LABS: Anion Gap 15.9; BUN Creatinine Ratio 18.6; Calcium 9.4 mg/dL (8.5-10.1); Carbon Dioxide 26.4 mmol/L (21.0-32.0); Chloride 96 mmol/L (98-107); Estimated GFR (African America >60 (>=60 mL/min/1.73m^2); Estimated GFR (Non-African Ame >60 (>=60 mL/min/1.73m^2); Glucose 119 mg/dL (74-106); Potassium 4.3 mmol/L (3.5-5.1); Sodium 134 mmol/L (136-145)
== END 2025-01-10 12:45 | disposition home or self-care (01) ==
LOC: LAB 12:45
PROVIDERS: PCP Nurse Practitioner; Visit Provider Nurse Practitioner
DX: E87.1 Hypo-osmolality and hyponatremia (principal)
CPT/HCPCS: 36415; 80048

== ENCOUNTER 2025-02-11 13:26 | Outpatient (OUT) | payer BC, SELFPAY ==
[2025-02-11 14:33] LABS: Estimated Average Glucose 108 mg/dL; Glycohemoglobin A1C 5.4 % (4.5-6.2)
== END 2025-02-11 13:27 | disposition home or self-care (01) ==
LOC: LAB 13:28
PROVIDERS: PCP Nurse Practitioner; Visit Provider Nurse Practitioner
DX: R73.9 Hyperglycemia, unspecified (principal)
CPT/HCPCS: 36415; 83036